=== PATIENT | male | born 1930 | race Caucasian/White ===

== ENCOUNTER 2019-01-12 18:52 | Inpatient (IN) ==
--- NOTE | 2019-01-12 19:51 | DR.GENAD ---
HPI - PCP Primary Care Physician: DALE - Complaint/Symptoms Chief Complaint Doctors Comments: Patient states he has had a cough with thick mucous production that is brown at times and white at times. He denies chest pain, SOB, cold, cough, wheezing or chills. States he is a patient of Dr. Daniels that was on Hospice since being in the hospital in [place] two weeks ago after having g-tube replaced. States he is under Hospice care because he was down initially but is feeling better and they want to have him checked for dehydration, pneumonia and to see why his stomach is swollen. Patient states he has home oxygen since coming home for the hospital in [place]. 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 States he was taking about 5-6 cans Ensure daily but Hospice had cut him down to 1 1/2 can. Family state he had a bowel movement recently and has not had any vomiting. Chief Complaint:: PT'S DAUGHTER STATES" HE WANTED TO COME OFF HOSPICE AND DO EVERYTHING TO GET BETTER. HE HAS A FEEDING TUBE THAT WAS REPLACED IN [facility] 2 WEEKS AGO AFTER THAT HIS LUNGS GOT REAL BAD AND HE WENT ON HOSPICE. HE JUST GETS SOB AND HIS SECREATIONS BUILD UP AND HE HAS TO SUCTIONED" - Nurses notes reviewed Nurses Notes Review: Yes - Source History Provided: Family Member, EMS - Mode of Arrival Mode of Arrival: EMS - Timing Onset of Chief Complaint: 01/12/19 Came on: Gradually - Duration Duration: Constant Duration: Weeks - Location Location: stomach distented; - Severity Severity: Mild - Modifying Factors Worsens:: nothing Improves:: nothing PMH - PMH Past Medical History: Yes Past Medical History: Anxiety Past Medical History Comment: THROAT CANCER Past Surgical History: Yes Past Surgical History Comment: PEG TUBE THROAT CANCER SURGERY ON NECK - Family History History of Family Medical Conditions: No - Social History Does any household member use tobacco: No Alcohol Use: None Do you use any recreational Drugs:: No Lives With: Family Lives Where: Home - infectious screening In the last 2 months have you had wt loss of >10#?: NO Have you had fever, night sweats or hemotysis?: No Have you traveled outside the country in the last 6 months?: No Isolation: Standard ROS - Review of Systems Constitutional: No Symptoms Reported, Weakness, Loss of Appetite (g-tube feedin gs) Eyes: No Symptoms Reported, Discharge ENTM: No Symptoms Reported Respiratoy: No Symptoms Reported, Productive Cough. negative: See HPI, Non- Productive Cough, Moist Cough, Dry Cough, Hacking Cough, Barking Cough, Brassy C ough, Orthopnea, Short of Breath, Stridor, Wheezing, Hemoptysis, Other Cardiovascular: No Symptoms Reported. negative: See HPI, Chest Pain, Edema, Palpitations, Syncope, Cyanosis, Skin Mottling, Other Gastrointestinal/Abdominal: No Symptoms Reported. negative: See HPI, Abdominal Pain, Constipation, Diarrhea, Nausea, Vomiting, Food Intolerance, Other Genitourinary: No Symptoms Reported Neurological: No Symptoms Reported, Weakness, Problems Walking Musculoskeletal: No Symptoms Reported Integumentary: No Symptoms Reported, Dryness. negative: See HPI, Change in Color, Change in Hair/Nails, Lesions, Lumps, Rash, Itching, Wound, Bruises, Juandice, Other Hematologic/Lymphatic: No Symptoms Reported Endocrine: No Symptoms Reported Psychiatric: No Symptoms Reported PE - General Limitations: No Limitations General Appearance: Alert, In No Apparent Distress - Head Head Exam: Normal Inspection, Atraumatic, Normocephalic - Eyes Eye exam: Normal Appearance, PERRL, EOMI. negative: Scleral Icterus, Conju nctival Injection, Nystagmus, Miosis, Mydrasis, Periorbital Swelling, Periorbital Tenderness, Other - ENT ENT Exam: Normal Exam, Normal Oropharynx, Mucous Membranes Dry, Other (healed left sided surgical scar). negative: Normal External Ear Exam, Mucous Membr anes Moist External Ear Exam: Auricular Trauma (left ear thin). negative: Auricular Hematoma, Pain with Movement, External Tenderness, Periauricular Adenopathy TM/Canal Exam: Bilateral Normal Nose Exam: Normal Nose Exam Mouth Exam: Normal Inspection. negative: Drooling (tongue with thick white coa ting), Trismus, Lip Swelling, Tongue Elevation, Tongue Swelling, Laceration, Other Throat Exam: Normal Inspection - Neck Neck Exam: Normal Inspection, Full ROM, Trachea Midline. negative: Lymphadenopathy (healed surgical scar left lateral neck) - Chest Chest Inspection: Normal Inspection, Symmetric Chest Wall Rise - Respiratory Respiratory Exam: Normal Lung Sounds Bilat Respiratory Exam: Bilateral Clear to Auscultation, Bilateral Decreased Breath Sounds - Cardiovascular Cardiovascular Exam: Regular Rate, Normal Rhythm, Normal Heart Sounds - Abdominal Exam Abdominal Exam: Normal Inspection, Normal Bowel Sounds, Soft, Distention, Other (gastric tube in place; small surgical laceration lowe abdomen; jomar intact) Abdominal Tenderness: negative: RUQ, RLQ, LUQ, LLQ, Epigastrium, Suprapubic, Diffuse, Mild, Moderate, Severe, Other - Extremities Extremities Exam: Normal Inspection, Full ROM, Normal Capillary Refill. negative: Tenderness, Edema, Joint Swelling, Calf Tenderness, Other - Back Back Exam: Normal Inspection, Full ROM - Neurologic Neurological Exam: Alert, Oriented X3, CN II-XII Intact, Reflexes Normal. negative: Normal Gait (gait not tested) - Psychiatric Psychiatric Exam: Normal Affect, Normal Mood - Skin Skin Exam: Warm, Dry, Intact, Normal Color - Vital Signs Vitals: Temperature 98.2 F Pulse Rate 69 Respiratory Rate 24 Blood Pressure 132/63 O2 Sat by Pulse Oximetry 98 Course - Consultation Called: 21:13 Call Returned: 21:13 (Dr. Rachel to admit) - Education/Counseling Education/Counseling: Patient, Family, Counseling Educated On: Diagnosis ROR - Labs Reviewed Laboratory Results Reviewed?: Yes (All labs and x-ray results reviewed and discussed with patient and family) Result Diagrams: 01/12/19 20:23 01/12/19 20:23 - XRAY XRAY Interpreted by: Radiologist (CT abdomen and pelvis: Distended urinary bladder; Nonobstructing bilateral nephrolithiasis.) XRAY Findings: CXR: No acute cardiopulmonary disease - EKG Rate: 76 Rhythm: NSR Block: RBBB Hypertrophy: None ST: Nonsp - Labs Reviewed Laboratory: WBC 9.1 X10^3/uL (3.6-10.0) 01/12/19 20:23 RBC 4.22 X10^6/uL (4.7-6.0) L 01/12/19 20:23 Hgb 13.6 g/dL (13.5-18.0) 01/12/19 20:23 Hct 40.4 % (42.0-54.0) L 01/12/19 20:23 MCV 95.6 fL (80.0-100.0) 01/12/19 20: MCH 32.2 pg (27.0-34.0) 01/12/19 20: MCHC 33.7 g/dL (33.0-35.0) 01/12/19 20: RDW 14.0 % (11.6-16.5) 01/12/19 20: Plt Count 290 X10^3/uL (150.0-450.0) 01/12/19 20:23 MPV 8.6 fL (7.4-11.0) 01/12/19 20:23 Neut % (Auto) 83.7 % (42.0-75.0) H 01/12/19 20:23 Lymph % (Auto) 7.9 % (21.0-51.0) L 01/12/19 20:23 [place] % (Auto) 6.7 % (0.0-13.0) 01/12/19 20: Eos % (Auto) 1.1 % (0.9-2.9) 01/12/19 20: Baso % (Auto) 0.6 % (0.2-1.0) 01/12/19 20: Neut # (Auto) 7.7 x10^3/uL (2.2-4.8) H 01/12/19 20:23 Lymph # (Auto) 0.7 X10^3/uL (1.3-2.9) L 01/12/19 20:23 [place] # (Auto) 0.6 x10^3/uL (0.3-0.8) 01/12/19 20:23 Eos # (Auto) 0.1 x10^3/uL (0.0-0.2) 01/12/19 20: Baso # (Auto) 0.1 X10^3/uL (0.0-0.1) 01/12/19 20: Absolute Nucleated RBC 0.0 /100WBC 01/12/19 20: INR Target Range - 01/12/19 20: INR 1.11 (0.8-1.3) 01/12/19 20:23 APTT 32.5 SECONDS (22.9-36.5) 01/12/19 20:23 PTT Comment - 01/12/19 20:23 Sodium 152 mmol/L (136-145) H* 01/12/19 20:23 Corrected Sodium 152 mmol/L (136-145) H 01/12/19 20:23 Potassium 3.5 mmol/L (3.5-5.1) 01/12/19 20:23 Chloride 109 mmol/L (98-107) H 01/12/19 20:23 Carbon Dioxide 37.9 mmol/L (21-32) H 01/12/19 20:23 BUN 15 mg/dL (7-18) 01/12/19 20:23 Creatinine 0.94 mg/dL (0.70-1.30) 01/12/19 20:23 Est GFR (MDRD) Af Amer > 60 (>60) 01/12/19 20:23 Est GFR (MDRD) Non-Af > 60 (>60) 01/12/19 20:23 Glucose 119 mg/dL (65-99) H 01/12/19 20:23 Calcium 10.1 mg/dL (8.5-10.1) 01/12/19 20:23 Corrected Calcium 11.5 mg/dL (8.5-10.1) H 01/12/19 20:23 Magnesium 2.4 mg/dL (1.7-2.9) 01/12/19 20:23 Total Bilirubin 0.80 mg/dL (0.2-1.0) 01/12/19 20:23 AST 43 Units/L (15-37) H 01/12/19 20:23 ALT 43 Units/L (12-78) 01/12/19 20:23 Alkaline Phosphatase 108 Units/L (46-116) 01/12/19 20:23 Creatine Kinase 19 Units/L (39-308) L 01/12/19 20:23 CK-MB (CK-2) < 1.0 ng/mL (0-4.0) 01/12/19 20:23 CK/CKMB % Calc 5.3 % (<4) 01/12/19 20:23 Troponin I 0.02 ng/mL (0-1.5) 01/12/19 20:23 Total Protein 6.7 g/dL (6.4-8.2) 01/12/19 20:23 Albumin 2.3 g/dL (3.4-5.0) L 01/12/19 20:23 Globulin 4.4 g/dL (2.5-4.5) 01/12/19 20:23 Albumin/Globulin Ratio 0.5 Ratio (1.1-2.1) L 01/12/19 20:23 Opioid - Opioid Risk Tool Total: 0 Total Score Risk Category: Low Risk - Diagnosis Discharge Problem: Dehydration with hypernatremia, Hypernatremia, Hypercalcemia, Hypoalbuminemia due to protein-calorie malnutrition, Nephrolithiasis - Discharge Plan Disposition: ADMITTED INPATIENT Condition: Stable
--- NOTE | 2019-01-12 20:17 | CT ---
CT abdomen and pelvis without contrast Indication: Abdominal distention Comparison: None Technique: CT images of the abdomen and pelvis were obtained without contrast. Automatic exposure control was utilized. Findings: There is moderate lumbar spine degenerative change with associated dextroscoliosis. No acute osseous abnormality. There is trace layering right pleural effusion with bilateral lower lobe subsegmental atelectasis. Evaluation of the abdominal pelvic viscera is limited without contrast. Accounting for this, the liver, gallbladder, spleen, stomach, duodenum, pancreas, and adrenals demonstrate no significant abnormality. Percutaneous gastrostomy projects in satisfactory position. There are small nonobstructing bilateral renal stones. No ureteral stone or hydroureter observed. No significant thickening or dilatation of the lower GI tract observed. Normal appendix is noted. Urinary bladder is distended, but otherwise grossly normal. The prostate and rectum are unremarkable. There is aortoiliac atherosclerosis, without aneurysm. No free fluid or adenopathy. Impression: The urinary bladder is distended, but otherwise grossly unremarkable. Otherwise no acute process elsewhere to explain patient's symptoms. Nonobstructing bilateral nephrolithiasis, trace layering right pleural effusion, spine degenerative change with scoliosis, and other findings as above. Reported By:
--- NOTE | 2019-01-12 20:18 | RAD ---
HISTORY: Chest pain Study: Single-view chest Comparison: None Findings: The trachea is midline. The cardiac silhouette is enlarged with a tortuous thoracic aorta. Chronic interstitial lung changes are observed without acute infiltrate or effusion. The bony thorax is unremarkable. IMPRESSION: 1. No acute cardiopulmonary disease. Reported By:
[2019-01-12 20:35] LABS: BASOPHILS # (AUTO) 0.1 X10^3/uL (0.0-0.1); BASOPHILS % (AUTO) 0.6 % (0.2-1.0); EOSINOPHILS # (AUTO) 0.1 x10^3/uL (0.0-0.2); EOSINOPHILS % (AUTO) 1.1 % (0.9-2.9); HEMATOCRIT 40.4 % (42.0-54.0); HEMOGLOBIN 13.6 g/dL (13.5-18.0); LYMPHOCYTES # (AUTO) 0.7 X10^3/uL (1.3-2.9); LYMPHOCYTES % (AUTO) 7.9 % (21.0-51.0); MEAN CORPUSCULAR HEMOGLOBIN 32.2 pg (27.0-34.0); MEAN CORPUSCULAR HGB CONC 33.7 g/dL (33.0-35.0); MEAN CORPUSCULAR VOLUME 95.6 fL (80.0-100.0); MEAN PLATELET VOLUME 8.6 fL (7.4-11.0); MONOCYTES # (AUTO) 0.6 x10^3/uL (0.3-0.8); MONOCYTES % (AUTO) 6.7 % (0.0-13.0); NEUTROPHILS # (AUTO) 7.7 x10^3/uL (2.2-4.8); NEUTROPHILS % (AUTO) 83.7 % (42.0-75.0); PLATELET COUNT 290 X10^3/uL (150.0-450.0); RED BLOOD COUNT 4.22 X10^6/uL (4.7-6.0); WHITE BLOOD COUNT 9.1 X10^3/uL (3.6-10.0)
[2019-01-12 20:51] LABS: ALANINE AMINOTRANSFERASE 43 Units/L (12-78); ALBUMIN 2.3 g/dL (3.4-5.0); ALKALINE PHOSPHATASE 108 Units/L (46-116); ASPARTATE AMINO TRANSFERASE 43 Units/L (15-37); BLOOD UREA NITROGEN 15 mg/dL (7-18); CALCIUM 10.1 mg/dL (8.5-10.1); CARBON DIOXIDE 37.9 mmol/L (21-32); CHLORIDE 109 mmol/L (98-107); CKMB % 5.3 % (<4); COR CA(FOR HYPOALB) 11.5 mg/dL (8.5-10.1); COR NA(FOR HYPERGLY) 152 mmol/L (136-145); CREATINE KINASE 19 Units/L (39-308); CREATINE KINASE MB < 1.0 ng/mL (0-4.0); CREATININE 0.94 mg/dL (0.70-1.30); MAGNESIUM 2.4 mg/dL (1.7-2.9); TOTAL PROTEIN 6.7 g/dL (6.4-8.2); TROPONIN I 0.02 ng/mL (0-1.5); eGFR NON BLACK RACES > 60 (>60)
[2019-01-12 20:55] LABS: SODIUM 152 mmol/L (136-145)
[2019-01-12] MEDS ORDERED: NS 1000 ML 1,000 ML IV SCH ×2 (22:00)
[2019-01-12] MEDS ORDERED: TORADOL 30 MG VIAL IVP ONE (22:12)
[2019-01-12] MEDS ORDERED: TORADOL 30 MG VIAL ONE (22:15)
[2019-01-12] MEDS ORDERED: NS 1000 ML 1,000 ML ONE (22:15)
[2019-01-13] MEDS ORDERED: ATIVAN INJ 2 MG VIAL IVP PRN (00:04)
[2019-01-13] MEDS ORDERED: ATIVAN INJ 2 MG VIAL ONE (00:11)
[2019-01-13 05:38] LABS: BASOPHILS % (AUTO) 0.4 % (0.2-1.0); EOSINOPHILS # (AUTO) 0.1 x10^3/uL (0.0-0.2); EOSINOPHILS % (AUTO) 1.2 % (0.9-2.9); HEMATOCRIT 39.1 % (42.0-54.0); HEMOGLOBIN 12.9 g/dL (13.5-18.0); LYMPHOCYTES # (AUTO) 0.8 X10^3/uL (1.3-2.9); LYMPHOCYTES % (AUTO) 9.4 % (21.0-51.0); MEAN CORPUSCULAR HEMOGLOBIN 31.7 pg (27.0-34.0); MEAN CORPUSCULAR HGB CONC 33.1 g/dL (33.0-35.0); MEAN CORPUSCULAR VOLUME 95.9 fL (80.0-100.0); MEAN PLATELET VOLUME 9.5 fL (7.4-11.0); MONOCYTES # (AUTO) 0.6 x10^3/uL (0.3-0.8); NEUTROPHILS # (AUTO) 7.1 x10^3/uL (2.2-4.8); PLATELET COUNT 269 X10^3/uL (150.0-450.0); RED BLOOD COUNT 4.07 X10^6/uL (4.7-6.0); RED CELL DISTRIBUTION WIDTH 13.9 % (11.6-16.5); WHITE BLOOD COUNT 8.7 X10^3/uL (3.6-10.0)
[2019-01-13 05:49] LABS: ALANINE AMINOTRANSFERASE 34 Units/L (12-78); ALBUMIN 2.2 g/dL (3.4-5.0); ALKALINE PHOSPHATASE 99 Units/L (46-116); ASPARTATE AMINO TRANSFERASE 36 Units/L (15-37); BLOOD UREA NITROGEN 17 mg/dL (7-18); CALCIUM 9.7 mg/dL (8.5-10.1); CARBON DIOXIDE 35.2 mmol/L (21-32); CHLORIDE 110 mmol/L (98-107); COR CA(FOR HYPOALB) 11.1 mg/dL (8.5-10.1); COR NA(FOR HYPERGLY) 153 mmol/L (136-145); CREATININE 0.97 mg/dL (0.70-1.30); TOTAL PROTEIN 6.6 g/dL (6.4-8.2); eGFR NON BLACK RACES > 60 (>60)
[2019-01-13 06:07] LABS: SODIUM 153 mmol/L (136-145)
[2019-01-13] MEDS ORDERED: ULTRAM ONE (06:11)
[2019-01-13] MEDS ORDERED: KLOR-CON PO PRN (06:12)
[2019-01-13] MEDS ORDERED: POTASSIUM CHL 60 MEQ/NS 0.45% 500 ML IV PRN (06:12)
[2019-01-13] MEDS ORDERED: MICRO K EXTEN CAP 10 MEQ PO PRN (06:12)
[2019-01-13] MEDS ORDERED: K-DUR TAB 20 MEQ PO PRN (06:12)
[2019-01-13] MEDS ORDERED: POTASSIUM CHL 40 MEQ/NS 0.45% 500 ML IV PRN (06:12)
[2019-01-13] MEDS ORDERED: MAGNESIUM SULFATE 1 GRAM/100 mL PREMIX 1 GM/100 ML BAG IV PRN (06:12)
[2019-01-13] MEDS ORDERED: K-RIDER 10 MEQ/NS 100 ML 10 MEQ/100 ML BAG IV PRN (06:12)
[2019-01-13] MEDS ORDERED: NS 1/2 1000 ML IV 1,000 ML ONE (06:31)
[2019-01-13] MEDS: NS 1/2 1000 ML IV 1,000 ML IV SCH ×2 (06:36→14:19)
[2019-01-13] MEDS: ULTRAM PO PRN ×3 (06:38→19:30)
[2019-01-13] MEDS: POTASSIUM CHLORIDE LIQ 20 MEQ UDC PO PRN (06:51)
[2019-01-13 08:15] VITALS: BMI 22.7
--- NOTE | 2019-01-13 15:42 | DR.H&P ---
H&P - History & Physical for Day of: H&P Date: 01/12/19 - Chief Complaint Chief Complaint: COUGH, SHORT OF BREATH, ABDOMINAL PAIN, WEAKNESS - History of Present Illness History of Present Illness: IS A 88 YEAR OLD PATIENT OF WHO PRESENTED TO THE ER WITH REPORTS OF A PRODUCTIVE COUGH, SHORTNESS OF BREATH, ABDOMINAL PAIN, ANDWEAKNESS. PATIENT RECENTLY HAD A G-TUBE REPLACED IN [place]. HE WAS SENT HOME FROM THE HOSPITAL WITH HOSPICE. SINCE RETURNING HOME, PATIENT WISHES TO BE DISCHARGED FROM HOSPICE AND TO BE FURTHER EVALUATED. HE HAS A HISTORY OF [facility] AND TREATMENT APPROXIMATELY SIX YEARS AGO. HE HAS HAD THE G-TUBE SINCE AND HAS BEEN RECEIVING ENSURE FOUR TO FIVE TIMES A DAY. ON ARRIVAL TO THE HOSPITAL, VITALS WERE 98.2-69-24-98%-132/63. LABS WERE OBTAINED. ABNROMAL LAB VALUES INCLUDE THE FOLLOWING: RBC 4.22, HCT 40.4, SODIUM 152, CHLORIDE 109, CARBON DIOXIDE 37.9, GLUOSE 119, AST 43, CREATINE KINASE 19, ALBUMIN 2.3. ABDOMEN/PELVIS CT WITHOUT CONTRAST WAS OBTAINED AND REVEALED: The urinary bladder is distended, but otherwise grossly unremarkable. Otherwise no acute process elsewhere to explain patient's symptoms. Nonobstructing bilateral nephrolithiasis, trace layering right pleural effusion, spine degenerative change with scoliosis. A CHEST XRAY WAS OBTAINED AND REVEALED: NO ACUTE CARDIOPULMONARY DISEASE. EKG REVEALED: ATRIAL FIBRILLATION WITH HR 76. HE WAS ADMITTED TO THE HOSPITAL FOR FURTHER EVALUATION AND TREATMENT OF DEHYDRATION, HYPERNATREMIA, AND HYPERCALCEMIA, MALNUTRITION, AND NEPHROLITHIASIS. HE WAS STARTED ON NORMAL SALINE AND REPSIRATORY TREATMENTS. WE PLAN TO FOLLOW UP WITH AM LABS AND CONTINUE TO MONITOR. - Past Medical History Past Medical History: Anxiety, GERD, Kidney Stones Additional Medical History: [facility], CARDIAC ARRHYTHMIA, GERD, HX KIDNEY STONES - Past Surgical History Additional Surgical History: HERNIA REPAIR, RIGHT KNEE REPLACEMENT, RADICAL NECK SURGERY D/T THROAT CANCER - Family History Family Medical History: Cancer, Hypertension - Social History Does patient currently use any type of tobacco product: No Have you used tobacco products in the last 12 months: No Type of Tobacco Use: Cigarettes Does any household member use tobacco: No Alcohol Use: None Drug Use: None Prescription drug monitoring program results: PDMP reviewed and no concerns identified - Medications Home Medications: diphenhydramine [From Benadryl] Allergy (Verified 01/12/19 18:55) ketorolac [From Toradol] Allergy (Verified 01/13/19 13:58) lorazepam [From Ativan] Allergy (Verified 01/13/19 13:58) morphine Allergy (Verified 01/12/19 18:55) Penicillins Allergy (Verified 01/12/19 18:55) CONTINUE taking the following medications tramadol [Ultram] 50 mg PO Q6H 01/12/19 [History] - Review of Systems Constitutional: Weakness Eyes: No Symptoms Reported ENT: No Symptoms Reported Respiratory: Cough, Shortness of Breath, Sputum Cardiovascular: No Symptoms Reported Gastrointestinal: Abdominal Pain Genitourinary: No Symptoms Reported Musculoskeletal: No Symptoms Reported Skin: No Symptoms Reported Neurological: Weakness - Physical Exam Vital Signs: Temperature 97.1 F Pulse Rate [Left] 90 Pulse Rate 69 Respiratory Rate 18 Blood Pressure [Left Arm] 150/71 Blood Pressure 132/63 O2 Sat by Pulse Oximetry 94 Oriented: Normal Eyes: Normal Ear: Normal Nose: Normal Throat: Normal Respiratory: Diminished Throughout Cardiovascular: Normal. negative: S3, S4, Murmur : Normal Auscultation: Bowel Sounds: Normal Palpation: Normal Tenderness: Diffuse, Moderate. negative: Rebound, Guarding, Rigidity Skin: Decreased Turgur Musculoskeletal: Normal Psychiatric: Normal Mood Description: Calm Affect: Normal Speech Pattern: Clear - Assessment/Plan (1) Dehydration with hypernatremia Status: Acute Plan: ADMIT, IV FLUIDS, CONTINUE TO MONITOR (2) Hypercalcemia Status: Acute (3) Hypoalbuminemia due to protein-calorie malnutrition Status: Acute - Allergies Allergies/Adverse Reactions: Allergies Allergy/AdvReac Type Severity Reaction Status Date / Time diphenhydramine Allergy Verified 01/12/19 18:55 [From Benadryl] ketorolac [From Toradol] Allergy Verified 01/13/19 13:58 lorazepam [From Ativan] Allergy Verified 01/13/19 13:58 morphine Allergy Verified 01/12/19 18:55 Penicillins Allergy Verified 01/12/19 18:55
[2019-01-13] MEDS: D5W 1000 ML IV 1,000 ML IV SCH (16:00)
[2019-01-13] MEDS: PROCALAMINE 3 % 1,000 ML IV SCH (16:30)
[2019-01-14] MEDS: ULTRAM PO PRN ×2 (01:16→20:58)
[2019-01-14 01:48] LABS: BILIRUBIN,URINE NEGATIVE (NEGATIVE); BLOOD/HEMOGLOBIN,URINE 1+ (NEGATIVE); GLUCOSE, URINE NEGATIVE (NEGATIVE); KETONES,URINE NEGATIVE (NEGATIVE); LEUKOCYTE ESTERASE ,URINE 1+ (NEGATIVE); NITRITES,URINE NEGATIVE (NEGATIVE); PROTEIN,URINE 1+ (NEGATIVE); UROBILINOGEN,URINE NORMAL (NORMAL)
[2019-01-14 01:55] LABS: AMORPHOUS SEDIMENT,UR 4+ /HPF (NEGATIVE); APPEARANCE,URINE CLOUDY (CLEAR); BACTERIA,URINE NEGATIVE /HPF (NEGATIVE); COLOR,URINE YELLOW (YELLOW); RBC,URINE NONE SEEN /HPF (NONE SEEN); SQUAMOUS EPITHELIAL CELL,UR FEW /HPF (NEGATIVE)
[2019-01-14] MEDS: D5W 1000 ML IV 1,000 ML IV SCH ×2 (03:23→17:31)
[2019-01-14 05:13] LABS: BASOPHILS # (AUTO) 0.1 X10^3/uL (0.0-0.1); BASOPHILS % (AUTO) 0.9 % (0.2-1.0); EOSINOPHILS # (AUTO) 0.3 x10^3/uL (0.0-0.2); EOSINOPHILS % (AUTO) 4.6 % (0.9-2.9); HEMATOCRIT 34.6 % (42.0-54.0); HEMOGLOBIN 11.7 g/dL (13.5-18.0); MEAN CORPUSCULAR HEMOGLOBIN 32.1 pg (27.0-34.0); MEAN CORPUSCULAR HGB CONC 33.8 g/dL (33.0-35.0); MEAN PLATELET VOLUME 9.7 fL (7.4-11.0); MONOCYTES # (AUTO) 0.5 x10^3/uL (0.3-0.8); MONOCYTES % (AUTO) 8.4 % (0.0-13.0); NEUTROPHILS # (AUTO) 4.3 x10^3/uL (2.2-4.8); NEUTROPHILS % (AUTO) 70.1 % (42.0-75.0); PLATELET COUNT 275 X10^3/uL (150.0-450.0); RED BLOOD COUNT 3.64 X10^6/uL (4.7-6.0); RED CELL DISTRIBUTION WIDTH 14.2 % (11.6-16.5); WHITE BLOOD COUNT 6.1 X10^3/uL (3.6-10.0)
[2019-01-14 05:20] LABS: ALANINE AMINOTRANSFERASE 29 Units/L (12-78); ALBUMIN 1.9 g/dL (3.4-5.0); ALKALINE PHOSPHATASE 86 Units/L (46-116); ASPARTATE AMINO TRANSFERASE 31 Units/L (15-37); BLOOD UREA NITROGEN 22 mg/dL (7-18); CALCIUM 8.8 mg/dL (8.5-10.1); CARBON DIOXIDE 31.5 mmol/L (21-32); CHLORIDE 104 mmol/L (98-107); COR CA(FOR HYPOALB) 10.5 mg/dL (8.5-10.1); COR NA(FOR HYPERGLY) 142 mmol/L (136-145); CREATININE 0.85 mg/dL (0.70-1.30); SODIUM 141 mmol/L (136-145); TOTAL PROTEIN 5.7 g/dL (6.4-8.2); eGFR NON BLACK RACES > 60 (>60)
[2019-01-14] MEDS ORDERED: PHARMACY CONSULT - DOSE _____ XX SCH (09:00)
[2019-01-14] MEDS: ALBUMIN HUMAN 25%- 100 ML 100 ML IV SCH (11:06)
[2019-01-14] MEDS: CHRONULAC PEG SCH (17:31)
[2019-01-14] MEDS: LOVENOX INJ 30 MG SYR SC SCH (20:58)
--- NOTE | 2019-01-14 21:39 | PCM.PROG ---
Progress Note - Progress Note for Day of Date of Exam: 01/13/19 - Subjective Subjective: WAS ADMITTED FOR DEHYDRATION, HYPERNATREMIA, HYPERCALCEMIA, AND PROTEIN DEFICIENCY. TODAY, HE RECENTLY HAD A G-TUBE REPLACEMENT AND WAS TREATED FOR PNEUMONIA WITHIN THE LAST TWO WEEKS. TODAY, HE IS ALERT AND ORIENTED, LYING IN BED ON MORNING ROUNDS. HE CONTINUES WITH COMPLAINTS OF WEAKNESS AND SHORTNESS OF BREATH TODAY. ON EXAMINATION, HEART IS REGULAR IN RATE AND RHYTHM. BILATERAL LUNGS ARE NOTED WITH DIMINISHED LUNG SOUNDS THROUGHOUT. ABDOMEN IS FLAT, SOFT, AND NOTED WITH MILD, DIFFUSE PAIN. HYPOACTIVE BOWEL SOUNDS NOTED IN ALL QUADRANTS. HIS VITALS THIS MORNING ARE: 97.3-53-18-98%-139/72. LABS WERE OBTAINED. ABNORMAL LAB VALUES INCLUDE THE FOLLOWING: RBC 4.07, HGB 12.9, HCT 39.1, SODIUM 153, POTASSIUM 3.1, CHLORIDE 110, CARBON DIOXIDE 35.2, GLUCOSE 113, TOTAL BILI 1.10, ALBUMIN 2.2. HE IS CURRENTLY RECEIVING 1/2NORMAL SALINE. TODAY, WE WILL CHANGE IV FLUIDS TO D5W AND START PROCALAMINE. WE WILL RESUME HIS ENSURE 4-5 TIMES/DAY. OTHERWISE, WE PLAN TO FOLLOW UP WITH AM LABS AND CONTINUE TO MONITOR. - Past Medical Family Social History Past Med/Fam/Surg Hx: No changes since H&P Allergies: Allergies diphenhydramine [From Benadryl] Allergy (Verified 01/12/19 18:55) ketorolac [From Toradol] Allergy (Verified 01/13/19 13:58) lorazepam [From Ativan] Allergy (Verified 01/13/19 13:58) morphine Allergy (Verified 01/12/19 18:55) Penicillins Allergy (Verified 01/12/19 18:55) - Review of Systems ROS: No change since H&P - Vital Signs and I&O's Vital Signs: Temperature 98.2 F Pulse Rate [Left] 61 Pulse Rate 69 Respiratory Rate 20 Blood Pressure [Left Arm] 148/67 Blood Pressure 132/63 O2 Sat by Pulse Oximetry 96 Intake and Output: Intake & Output 01/12/19 01/13/19 01/14/19 01/15/19 11:59 11:59 11:59 11:59 Intake Total 125 / 125 1520 / 1520 175 / 175 Output Total 150 / 150 200 / 200 Balance 125 / 125 1370 / 1370 -25 / -25 - Physical Exam Oriented: Normal Eyes: Normal Ear: Normal Nose: Normal Throat: Normal Cardiovascular: Normal. negative: S3, S4, Murmur : Normal Auscultation: Bowel Sounds: Normal Tenderness: Diffuse, Moderate. negative: Rebound, Guarding, Rigidity Skin: Decreased Turgur Musculoskeletal: Normal Psychiatric: Normal Mood Description: Calm Affect: Normal Speech Pattern: Clear - Laboratory and Diagnostics Result Diagrams: 01/14/19 04:17 01/14/19 04:17 Labs: Laboratory WBC 6.1 X10^3/uL (3.6-10.0) 01/14/19 04:17 RBC 3.64 X10^6/uL (4.7-6.0) L 01/14/19 04:17 Hgb 11.7 g/dL (13.5-18.0) L 01/14/19 04:17 Hct 34.6 % (42.0-54.0) L 01/14/19 04:17 MCV 95.0 fL (80.0-100.0) 01/14/19 04:17 MCH 32.1 pg (27.0-34.0) 01/14/19 04:17 MCHC 33.8 g/dL (33.0-35.0) 01/14/19 04:17 RDW 14.2 % (11.6-16.5) 01/14/19 04:17 Plt Count 275 X10^3/uL (150.0-450.0) 01/14/19 04:17 MPV 9.7 fL (7.4-11.0) 01/14/19 04:17 Neut % (Auto) 70.1 % (42.0-75.0) 01/14/19 04:17 Lymph % (Auto) 16.0 % (21.0-51.0) L 01/14/19 04:17 [place] % (Auto) 8.4 % (0.0-13.0) 01/14/19 04:17 Eos % (Auto) 4.6 % (0.9-2.9) H 01/14/19 04:17 Baso % (Auto) 0.9 % (0.2-1.0) 01/14/19 04:17 Neut # (Auto) 4.3 x10^3/uL (2.2-4.8) 01/14/19 04:17 Lymph # (Auto) 1.0 X10^3/uL (1.3-2.9) L 01/14/19 04:17 [place] # (Auto) 0.5 x10^3/uL (0.3-0.8) 01/14/19 04:17 Eos # (Auto) 0.3 x10^3/uL (0.0-0.2) H 01/14/19 04:17 Baso # (Auto) 0.1 X10^3/uL (0.0-0.1) 01/14/19 04:17 Absolute Nucleated RBC 0.1 /100WBC 01/14/19 04:17 INR Target Range - 01/12/19 20:23 INR 1.11 (0.8-1.3) 01/12/19 20:23 APTT 32.5 SECONDS (22.9-36.5) 01/12/19 20:23 PTT Comment - 01/12/19 20:23 Sodium 141 mmol/L (136-145) 01/14/19 04:17 Corrected Sodium 142 mmol/L (136-145) 01/14/19 04:17 Potassium 3.8 mmol/L (3.5-5.1) 01/14/19 04:17 Chloride 104 mmol/L (98-107) 01/14/19 04:17 Carbon Dioxide 31.5 mmol/L (21-32) 01/14/19 04:17 BUN 22 mg/dL (7-18) H 01/14/19 04:17 Creatinine 0.85 mg/dL (0.70-1.30) 01/14/19 04:17 Est GFR (MDRD) Af Amer > 60 (>60) 01/14/19 04:17 Est GFR (MDRD) Non-Af > 60 (>60) 01/14/19 04:17 Glucose 121 mg/dL (65-99) H 01/14/19 04:17 POC Glucose (mg/dL) 148 mg/dL (65-99) H 01/14/19 20:00 Calcium 8.8 mg/dL (8.5-10.1) 01/14/19 04:17 Corrected Calcium 10.5 mg/dL (8.5-10.1) H 01/14/19 04:17 Magnesium 2.4 mg/dL (1.7-2.9) 01/12/19 20:23 Total Bilirubin 0.70 mg/dL (0.2-1.0) 01/14/19 04:17 AST 31 Units/L (15-37) 01/14/19 04:17 ALT 29 Units/L (12-78) 01/14/19 04:17 Alkaline Phosphatase 86 Units/L (46-116) 01/14/19 04:17 Creatine Kinase 19 Units/L (39-308) L 01/12/19 20:23 CK-MB (CK-2) < 1.0 ng/mL (0-4.0) 01/12/19 20:23 CK/CKMB % Calc 5.3 % (<4) 01/12/19 20:23 Troponin I 0.02 ng/mL (0-1.5) 01/12/19 20:23 Total Protein 5.7 g/dL (6.4-8.2) L 01/14/19 04:17 Albumin 1.9 g/dL (3.4-5.0) L 01/14/19 04:17 Globulin 3.8 g/dL (2.5-4.5) 01/14/19 04:17 Albumin/Globulin Ratio 0.5 Ratio (1.1-2.1) L 01/14/19 04:17 Specimen Type Clean catch urine 01/14/19 01:25 Urine Color Yellow (YELLOW) 01/14/19 01:25 Urine Appearance Cloudy (CLEAR) 01/14/19 01:25 Urine pH 8.0 (5.0 - 8.0) 01/14/19 01:25 Ur Specific [place] 1.015 (1.000-1.030) 01/14/19 01:25 Urine Protein 1+ (NEGATIVE) 01/14/19 01:25 Urine Glucose (UA) Negative (NEGATIVE) 01/14/19 01:25 Urine Ketones Negative (NEGATIVE) 01/14/19 01:25 Urine Occult Blood 1+ (NEGATIVE) 01/14/19 01:25 Urine Nitrite Negative (NEGATIVE) 01/14/19 01:25 Urine Bilirubin Negative (NEGATIVE) 01/14/19 01:25 Urine Urobilinogen Normal (NORMAL) 01/14/19 01:25 Ur Leukocyte Esterase 1+ (NEGATIVE) 01/14/19 01:25 Urine RBC None seen /HPF (NONE SEEN) 01/14/19 01:25 Urine WBC 0-2 /HPF (NONE SEEN) 01/14/19 01:25 Ur Squamous Epith Cells Few /HPF (NEGATIVE) 01/14/19 01:25 Amorphous Sediment 4+ /HPF (NEGATIVE) 01/14/19 01:25 Urine Bacteria Negative /HPF (NEGATIVE) 01/14/19 01:25 Ur Culture Indicated? No/not indicated 01/14/19 01:25 - Plan (1) Dehydration with hypernatremia Status: Acute Plan: ADMIT, IV FLUIDS, CONTINUE TO MONITOR (2) Hypercalcemia Status: Acute (3) Hypoalbuminemia due to protein-calorie malnutrition Status: Acute Plan: PROCAL IV, ENSURE 1 CAN 4-5X/DAY
[2019-01-15] MEDS: ULTRAM PO PRN ×2 (04:17→20:38)
[2019-01-15] MEDS: D5W 1000 ML IV 1,000 ML IV SCH ×2 (05:11→19:01)
[2019-01-15 06:05] LABS: BASOPHILS % (AUTO) 0.8 % (0.2-1.0); EOSINOPHILS # (AUTO) 0.2 x10^3/uL (0.0-0.2); EOSINOPHILS % (AUTO) 3.9 % (0.9-2.9); HEMATOCRIT 33.5 % (42.0-54.0); HEMOGLOBIN 11.6 g/dL (13.5-18.0); LYMPHOCYTES # (AUTO) 0.9 X10^3/uL (1.3-2.9); LYMPHOCYTES % (AUTO) 16.8 % (21.0-51.0); MEAN CORPUSCULAR HEMOGLOBIN 31.9 pg (27.0-34.0); MEAN CORPUSCULAR HGB CONC 34.5 g/dL (33.0-35.0); MEAN CORPUSCULAR VOLUME 92.3 fL (80.0-100.0); MEAN PLATELET VOLUME 9.6 fL (7.4-11.0); MONOCYTES # (AUTO) 0.5 x10^3/uL (0.3-0.8); MONOCYTES % (AUTO) 9.5 % (0.0-13.0); NEUTROPHILS # (AUTO) 3.7 x10^3/uL (2.2-4.8); PLATELET COUNT 258 X10^3/uL (150.0-450.0); RED BLOOD COUNT 3.63 X10^6/uL (4.7-6.0); RED CELL DISTRIBUTION WIDTH 14.3 % (11.6-16.5); WHITE BLOOD COUNT 5.4 X10^3/uL (3.6-10.0)
[2019-01-15 06:28] LABS: ALANINE AMINOTRANSFERASE 30 Units/L (12-78); ALBUMIN 2.2 g/dL (3.4-5.0); ALKALINE PHOSPHATASE 78 Units/L (46-116); ASPARTATE AMINO TRANSFERASE 32 Units/L (15-37); BLOOD UREA NITROGEN 17 mg/dL (7-18); CARBON DIOXIDE 29.6 mmol/L (21-32); CHLORIDE 100 mmol/L (98-107); COR CA(FOR HYPOALB) 10.4 mg/dL (8.5-10.1); COR NA(FOR HYPERGLY) 136 mmol/L (136-145); CREATININE 0.79 mg/dL (0.70-1.30); SODIUM 136 mmol/L (136-145); TOTAL PROTEIN 5.8 g/dL (6.4-8.2); eGFR NON BLACK RACES > 60 (>60)
[2019-01-15] MEDS: LOVENOX INJ 30 MG SYR SC SCH ×2 (08:11→20:39)
[2019-01-15] MEDS: ALBUMIN HUMAN 25%- 100 ML 100 ML IV SCH (08:12)
[2019-01-15] MEDS: CHRONULAC PEG SCH (10:19)
[2019-01-15] MEDS: PROCALAMINE 3 % 1,000 ML IV SCH (16:57)
[2019-01-15] MEDS: POTASSIUM CHLORIDE LIQ 20 MEQ UDC PO PRN (20:39)
--- NOTE | 2019-01-15 21:36 | PCM.PROG ---
Progress Note - Progress Note for Day of Date of Exam: 01/14/19 - Subjective Subjective: WAS ADMITTED FOR DEHYDRATION, HYPERNATREMIA, HYPERCALCEMIA, AND PROTEIN DEFICIENCY. HE RECENTLY HAD A G-TUBE REPLACEMENT AND WAS TREATED FOR PNEUMONIA WITHIN THE LAST TWO WEEKS. TODAY, HE IS ALERT AND ORIENTED, LYING IN BED ON MORNING ROUNDS. HE CONTINUES WITH COMPLAINTS OF WEAKNE SS TODAY. ON EXAMINATION, HEART IS REGULAR IN RATE AND RHYTHM. BILATERAL LUNGS ARE NOTED WITH DIMINISHED LUNG SOUNDS THROUGHOUT. ABDOMEN IS FLAT, SOFT, AND NOTED WITH MILD, DIFFUSE PAIN. HYPOACTIVE BOWEL SOUNDS NOTED IN ALL QUADRANTS. HIS VITALS THIS MORNING ARE: 97.6-59-18-96%-106/53. LABS WERE OBTAINED. ABNORMAL LAB VALUES INCLUDE THE FOLLOWING: RBC 3.64, HGB 11.7, HCT 34.6, BUN 22, GLUCOSE 121, TOTAL PROTEIN 5.7, ALBUMIN 1.9. HE IS CURRENTLY RECEIVING D5W AT 80ML/HR AND PROCAL AT 40ML/HR. TODAY, WE WILL START ALBUMIN 25% IV DAILY AND RESUME HOME MEDS. WE WILL HAVE PHYSICAL THERAPY EVALUATE PATIENT. OTHERWISE, WE PLAN TO FOLLOW UP WITH AM LABS AND CONTINUE TO MONITOR. - Past Medical Family Social History Past Med/Fam/Surg Hx: No changes since H&P Allergies: Allergies diphenhydramine [From Benadryl] Allergy (Verified 01/12/19 18:55) ketorolac [From Toradol] Allergy (Verified 01/13/19 13:58) lorazepam [From Ativan] Allergy (Verified 01/13/19 13:58) morphine Allergy (Verified 01/12/19 18:55) Penicillins Allergy (Verified 01/12/19 18:55) - Review of Systems ROS: No change since H&P - Vital Signs and I&O's Vital Signs: Temperature 98.3 F Pulse Rate [Left] 62 Pulse Rate 69 Respiratory Rate 15 Blood Pressure [Right Arm] 135/65 Blood Pressure [Left Arm] 166/79 Blood Pressure 132/63 O2 Sat by Pulse Oximetry 97 Intake and Output: Intake & Output 01/13/19 01/14/19 01/15/19 01/16/19 11:59 11:59 11:59 11:59 Intake Total 125 / 125 1520 / 1520 2415 / 2415 640 / 640 Output Total 150 / 150 1950 / 1950 800 / 800 Balance 125 / 125 1370 / 1370 465 / 465 -160 / -160 - Physical Exam Oriented: Normal Eyes: Normal Ear: Normal Nose: Normal Throat: Normal Cardiovascular: Normal. negative: S3, S4, Murmur : Normal Auscultation: Bowel Sounds: Normal Palpation: Normal Tenderness: Diffuse, Moderate. negative: Rebound, Guarding, Rigidity Skin: Decreased Turgur Musculoskeletal: Normal Psychiatric: Normal Mood Description: Calm Affect: Normal Speech Pattern: Clear, Appropriate - Laboratory and Diagnostics Result Diagrams: 01/15/19 05:03 01/15/19 05:03 Labs: 01/15/19 17:50 Abdomen Gram Stain - Final 01/13/19 15:57 Blood Blood Culture - Preliminary 01/13/19 15:51 Blood Blood Culture - Preliminary Laboratory WBC 5.4 X10^3/uL (3.6-10.0) 01/15/19 05:03 RBC 3.63 X10^6/uL (4.7-6.0) L 01/15/19 05:03 Hgb 11.6 g/dL (13.5-18.0) L 01/15/19 05:03 Hct 33.5 % (42.0-54.0) L 01/15/19 05:03 MCV 92.3 fL (80.0-100.0) 01/15/19 05:03 MCH 31.9 pg (27.0-34.0) 01/15/19 05:03 MCHC 34.5 g/dL (33.0-35.0) 01/15/19 05:03 RDW 14.3 % (11.6-16.5) 01/15/19 05:03 Plt Count 258 X10^3/uL (150.0-450.0) 01/15/19 05:03 MPV 9.6 fL (7.4-11.0) 01/15/19 05:03 Neut % (Auto) 69.0 % (42.0-75.0) 01/15/19 05:03 Lymph % (Auto) 16.8 % (21.0-51.0) L 01/15/19 05:03 [place] % (Auto) 9.5 % (0.0-13.0) 01/15/19 05:03 Eos % (Auto) 3.9 % (0.9-2.9) H 01/15/19 05:03 Baso % (Auto) 0.8 % (0.2-1.0) 01/15/19 05:03 Neut # (Auto) 3.7 x10^3/uL (2.2-4.8) 01/15/19 05:03 Lymph # (Auto) 0.9 X10^3/uL (1.3-2.9) L 01/15/19 05:03 [place] # (Auto) 0.5 x10^3/uL (0.3-0.8) 01/15/19 05:03 Eos # (Auto) 0.2 x10^3/uL (0.0-0.2) 01/15/19 05:03 Baso # (Auto) 0.0 X10^3/uL (0.0-0.1) 01/15/19 05:03 Absolute Nucleated RBC 0.0 /100WBC 01/15/19 05:03 INR Target Range - 01/12/19 20:23 INR 1.11 (0.8-1.3) 01/12/19 20:23 APTT 32.5 SECONDS (22.9-36.5) 01/12/19 20:23 PTT Comment - 01/12/19 20:23 Sodium 136 mmol/L (136-145) 01/15/19 05:03 Corrected Sodium 136 mmol/L (136-145) 01/15/19 05:03 Potassium 3.7 mmol/L (3.5-5.1) 01/15/19 05:03 Chloride 100 mmol/L (98-107) 01/15/19 05:03 Carbon Dioxide 29.6 mmol/L (21-32) 01/15/19 05:03 BUN 17 mg/dL (7-18) 01/15/19 05:03 Creatinine 0.79 mg/dL (0.70-1.30) 01/15/19 05:03 Est GFR (MDRD) Af Amer > 60 (>60) 01/15/19 05:03 Est GFR (MDRD) Non-Af > 60 (>60) 01/15/19 05:03 Glucose 113 mg/dL (65-99) H 01/15/19 05:03 POC Glucose (mg/dL) 120 mg/dL (65-99) H 01/15/19 19:55 Calcium 9.0 mg/dL (8.5-10.1) 01/15/19 05:03 Corrected Calcium 10.4 mg/dL (8.5-10.1) H 01/15/19 05:03 Magnesium 2.4 mg/dL (1.7-2.9) 01/12/19 20:23 Total Bilirubin 0.50 mg/dL (0.2-1.0) 01/15/19 05:03 AST 32 Units/L (15-37) 01/15/19 05:03 ALT 30 Units/L (12-78) 01/15/19 05:03 Alkaline Phosphatase 78 Units/L (46-116) 01/15/19 05:03 Creatine Kinase 19 Units/L (39-308) L 01/12/19 20:23 CK-MB (CK-2) < 1.0 ng/mL (0-4.0) 01/12/19 20:23 CK/CKMB % Calc 5.3 % (<4) 01/12/19 20:23 Troponin I 0.02 ng/mL (0-1.5) 01/12/19 20:23 Total Protein 5.8 g/dL (6.4-8.2) L 01/15/19 05:03 Albumin 2.2 g/dL (3.4-5.0) L 01/15/19 05:03 Globulin 3.6 g/dL (2.5-4.5) 01/15/19 05:03 Albumin/Globulin Ratio 0.6 Ratio (1.1-2.1) L 01/15/19 05:03 Specimen Type Clean catch urine 01/14/19 01:25 Urine Color Yellow (YELLOW) 01/14/19 01:25 Urine Appearance Cloudy (CLEAR) 01/14/19 01:25 Urine pH 8.0 (5.0 - 8.0) 01/14/19 01:25 Ur Specific [place] 1.015 (1.000-1.030) 01/14/19 01:25 Urine Protein 1+ (NEGATIVE) 01/14/19 01:25 Urine Glucose (UA) Negative (NEGATIVE) 01/14/19 01:25 Urine Ketones Negative (NEGATIVE) 01/14/19 01:25 Urine Occult Blood 1+ (NEGATIVE) 01/14/19 01:25 Urine Nitrite Negative (NEGATIVE) 01/14/19 01:25 Urine Bilirubin Negative (NEGATIVE) 01/14/19 01:25 Urine Urobilinogen Normal (NORMAL) 01/14/19 01:25 Ur Leukocyte Esterase 1+ (NEGATIVE) 01/14/19 01:25 Urine RBC None seen /HPF (NONE SEEN) 01/14/19 01:25 Urine WBC 0-2 /HPF (NONE SEEN) 01/14/19 01:25 Ur Squamous Epith Cells Few /HPF (NEGATIVE) 01/14/19 01:25 Amorphous Sediment 4+ /HPF (NEGATIVE) 01/14/19 01:25 Urine Bacteria Negative /HPF (NEGATIVE) 01/14/19 01:25 Ur Culture Indicated? No/not indicated 01/14/19 01:25 - Plan (1) Dehydration with hypernatremia Status: Acute Plan: ADMIT, IV FLUIDS, CONTINUE TO MONITOR (2) Hypercalcemia Status: Acute (3) Hypoalbuminemia due to protein-calorie malnutrition Status: Acute Plan: ALBUMIN 25% IV DAILY, PROCAL IV, ENSURE 1 CAN 4-5X/DAY
[2019-01-16] MEDS: ULTRAM PO PRN ×2 (01:59→21:36)
[2019-01-16 05:22] LABS: BASOPHILS % (AUTO) 0.7 % (0.2-1.0); EOSINOPHILS # (AUTO) 0.2 x10^3/uL (0.0-0.2); EOSINOPHILS % (AUTO) 2.9 % (0.9-2.9); HEMATOCRIT 33.7 % (42.0-54.0); HEMOGLOBIN 11.5 g/dL (13.5-18.0); LYMPHOCYTES # (AUTO) 0.9 X10^3/uL (1.3-2.9); LYMPHOCYTES % (AUTO) 14.6 % (21.0-51.0); MEAN CORPUSCULAR HEMOGLOBIN 31.9 pg (27.0-34.0); MEAN CORPUSCULAR HGB CONC 34.1 g/dL (33.0-35.0); MEAN CORPUSCULAR VOLUME 93.5 fL (80.0-100.0); MEAN PLATELET VOLUME 9.9 fL (7.4-11.0); MONOCYTES # (AUTO) 0.7 x10^3/uL (0.3-0.8); MONOCYTES % (AUTO) 11.7 % (0.0-13.0); NEUTROPHILS # (AUTO) 4.2 x10^3/uL (2.2-4.8); NEUTROPHILS % (AUTO) 70.1 % (42.0-75.0); PLATELET COUNT 250 X10^3/uL (150.0-450.0); RED BLOOD COUNT 3.61 X10^6/uL (4.7-6.0); RED CELL DISTRIBUTION WIDTH 14.1 % (11.6-16.5); WHITE BLOOD COUNT 5.9 X10^3/uL (3.6-10.0)
[2019-01-16 05:41] LABS: ALANINE AMINOTRANSFERASE 25 Units/L (12-78); ALBUMIN 2.7 g/dL (3.4-5.0); ALKALINE PHOSPHATASE 75 Units/L (46-116); ASPARTATE AMINO TRANSFERASE 34 Units/L (15-37); BLOOD UREA NITROGEN 15 mg/dL (7-18); CALCIUM 9.3 mg/dL (8.5-10.1); CARBON DIOXIDE 28.8 mmol/L (21-32); CHLORIDE 101 mmol/L (98-107); COR CA(FOR HYPOALB) 10.3 mg/dL (8.5-10.1); SODIUM 136 mmol/L (136-145); TOTAL PROTEIN 6.1 g/dL (6.4-8.2); eGFR NON BLACK RACES > 60 (>60)
[2019-01-16] MEDS: ALBUMIN HUMAN 25%- 100 ML 100 ML IV SCH (09:32)
[2019-01-16] MEDS: LOVENOX INJ 30 MG SYR SC SCH ×2 (09:32→21:27)
[2019-01-16] MEDS: CHRONULAC PEG SCH (13:11)
[2019-01-16] MEDS: PROCALAMINE 3 % 1,000 ML IV SCH (21:29)
[2019-01-16] MEDS: D5W 1000 ML IV 1,000 ML IV SCH (21:30)
--- NOTE | 2019-01-16 21:59 | PCM.PROG ---
Progress Note - Progress Note for Day of Date of Exam: 01/15/19 - Subjective Subjective: WAS ADMITTED FOR DEHYDRATION, HYPERNATREMIA, HYPERCALCEMIA, AND PROTEIN DEFICIENCY. HE RECENTLY HAD A G-TUBE REPLACEMENT AND WAS TREATED FOR PNEUMONIA WITHIN THE LAST TWO WEEKS. TODAY, HE IS ALERT AND ORIENTED, LYING IN BED ON MORNING ROUNDS. HE CONTINUES WITH COMPLAINTS OF WEAKNE SS TODAY. STAFF REPORTS THAT HE IS AMBULATING WELL WITH ASSISTANCE. ON EXAMINATION, HEART IS REGULAR IN RATE AND RHYTHM. BILATERAL LUNGS ARE NOTED WITH DIMINISHED LUNG SOUNDS THROUGHOUT. ABDOMEN IS FLAT, SOFT, AND NOTED WITH MILD, DIFFUSE PAIN. HYPOACTIVE BOWEL SOUNDS NOTED IN ALL QUADRANTS. HIS VITALS THIS MORNING ARE: 98.0-60-20-97%-130/64. LABS WERE OBTAINED. ABNORMAL LAB VALUES INCLUDE THE FOLLOWING: RBC 3.63, HGB 11.6, HCT 33.5, GLUCOSE 113, TOTAL PROTEIN 5.8, ALBUMIN 2.2. HE IS CURRENTLY RECEIVING D5W AT 80ML/HR, PROCAL AT 40ML/HR, AND ALBUMIN 25% IV DAILY. WE WILL CONTINUE WITH CURRENT PLAN OF CARE TODAY. OTHERWISE, WE PLAN TO FOLLOW UP WITH AM LABS AND CONTINUE TO MONITOR. - Past Medical Family Social History Past Med/Fam/Surg Hx: No changes since H&P Allergies: Allergies diphenhydramine [From Benadryl] Allergy (Verified 01/12/19 18:55) ketorolac [From Toradol] Allergy (Verified 01/13/19 13:58) lorazepam [From Ativan] Allergy (Verified 01/13/19 13:58) morphine Allergy (Verified 01/12/19 18:55) Penicillins Allergy (Verified 01/12/19 18:55) - Review of Systems ROS: No change since H&P - Vital Signs and I&O's Vital Signs: Temperature 97.7 F Pulse Rate [Left] 66 Pulse Rate 69 Respiratory Rate 18 Blood Pressure [Right Arm] 149/67 Blood Pressure [Left Arm] 121/67 Blood Pressure 132/63 O2 Sat by Pulse Oximetry 99 Intake and Output: Intake & Output 01/14/19 01/15/19 01/16/19 01/17/19 11:59 11:59 11:59 11:59 Intake Total 1520 / 1520 2415 / 2415 3020 / 3020 0 / 0 Output Total 150 / 150 1950 / 1950 1125 / 1125 Balance 1370 / 1370 465 / 465 1895 / 1895 0 / 0 - Physical Exam Oriented: Normal Eyes: Normal Ear: Normal Nose: Normal Throat: Normal Cardiovascular: Normal. negative: S3, S4, Murmur : Normal Auscultation: Bowel Sounds: Normal Tenderness: Diffuse, Moderate. negative: Rebound, Guarding, Rigidity Skin: Decreased Turgur Musculoskeletal: Normal Psychiatric: Normal Mood Description: Calm Affect: Normal Speech Pattern: Clear, Appropriate - Laboratory and Diagnostics Result Diagrams: 01/16/19 04:05 01/16/19 04:05 Labs: 01/15/19 17:50 Abdomen Gram Stain - Final 01/15/19 17:50 Abdomen Wound Culture - Preliminary 01/13/19 15:57 Blood Blood Culture - Preliminary 01/13/19 15:51 Blood Blood Culture - Preliminary Laboratory WBC 5.9 X10^3/uL (3.6-10.0) 01/16/19 04:05 RBC 3.61 X10^6/uL (4.7-6.0) L 01/16/19 04:05 Hgb 11.5 g/dL (13.5-18.0) L 01/16/19 04:05 Hct 33.7 % (42.0-54.0) L 01/16/19 04:05 MCV 93.5 fL (80.0-100.0) 01/16/19 04:05 MCH 31.9 pg (27.0-34.0) 01/16/19 04:05 MCHC 34.1 g/dL (33.0-35.0) 01/16/19 04:05 RDW 14.1 % (11.6-16.5) 01/16/19 04:05 Plt Count 250 X10^3/uL (150.0-450.0) 01/16/19 04:05 MPV 9.9 fL (7.4-11.0) 01/16/19 04:05 Neut % (Auto) 70.1 % (42.0-75.0) 01/16/19 04:05 Lymph % (Auto) 14.6 % (21.0-51.0) L 01/16/19 04:05 [place] % (Auto) 11.7 % (0.0-13.0) 01/16/19 04:05 Eos % (Auto) 2.9 % (0.9-2.9) 01/16/19 04:05 Baso % (Auto) 0.7 % (0.2-1.0) 01/16/19 04:05 Neut # (Auto) 4.2 x10^3/uL (2.2-4.8) 01/16/19 04:05 Lymph # (Auto) 0.9 X10^3/uL (1.3-2.9) L 01/16/19 04:05 [place] # (Auto) 0.7 x10^3/uL (0.3-0.8) 01/16/19 04:05 Eos # (Auto) 0.2 x10^3/uL (0.0-0.2) 01/16/19 04:05 Baso # (Auto) 0.0 X10^3/uL (0.0-0.1) 01/16/19 04:05 Absolute Nucleated RBC 0.0 /100WBC 01/16/19 04:05 INR Target Range - 01/12/19 20:23 INR 1.11 (0.8-1.3) 01/12/19 20:23 APTT 32.5 SECONDS (22.9-36.5) 01/12/19 20:23 PTT Comment - 01/12/19 20:23 Sodium 136 mmol/L (136-145) 01/16/19 04:05 Corrected Sodium TNP 01/16/19 04:05 Potassium 4.0 mmol/L (3.5-5.1) 01/16/19 04:05 Chloride 101 mmol/L (98-107) 01/16/19 04:05 Carbon Dioxide 28.8 mmol/L (21-32) 01/16/19 04:05 BUN 15 mg/dL (7-18) 01/16/19 04:05 Creatinine 0.80 mg/dL (0.70-1.30) 01/16/19 04:05 Est GFR (MDRD) Af Amer > 60 (>60) 01/16/19 04:05 Est GFR (MDRD) Non-Af > 60 (>60) 01/16/19 04:05 Glucose 99 mg/dL (65-99) 01/16/19 04:05 POC Glucose (mg/dL) 118 mg/dL (65-99) H 01/16/19 21:24 Calcium 9.3 mg/dL (8.5-10.1) 01/16/19 04:05 Corrected Calcium 10.3 mg/dL (8.5-10.1) H 01/16/19 04:05 Magnesium 2.4 mg/dL (1.7-2.9) 01/12/19 20:23 Total Bilirubin 0.60 mg/dL (0.2-1.0) 01/16/19 04:05 AST 34 Units/L (15-37) 01/16/19 04:05 ALT 25 Units/L (12-78) 01/16/19 04:05 Alkaline Phosphatase 75 Units/L (46-116) 01/16/19 04:05 Creatine Kinase 19 Units/L (39-308) L 01/12/19 20:23 CK-MB (CK-2) < 1.0 ng/mL (0-4.0) 01/12/19 20:23 CK/CKMB % Calc 5.3 % (<4) 01/12/19 20:23 Troponin I 0.02 ng/mL (0-1.5) 01/12/19 20:23 Total Protein 6.1 g/dL (6.4-8.2) L 01/16/19 04:05 Albumin 2.7 g/dL (3.4-5.0) L 01/16/19 04:05 Globulin 3.4 g/dL (2.5-4.5) 01/16/19 04:05 Albumin/Globulin Ratio 0.8 Ratio (1.1-2.1) L 01/16/19 04:05 Specimen Type Clean catch urine 01/14/19 01:25 Urine Color Yellow (YELLOW) 01/14/19 01:25 Urine Appearance Cloudy (CLEAR) 01/14/19 01:25 Urine pH 8.0 (5.0 - 8.0) 01/14/19 01:25 Ur Specific [place] 1.015 (1.000-1.030) 01/14/19 01:25 Urine Protein 1+ (NEGATIVE) 01/14/19 01:25 Urine Glucose (UA) Negative (NEGATIVE) 01/14/19 01:25 Urine Ketones Negative (NEGATIVE) 01/14/19 01:25 Urine Occult Blood 1+ (NEGATIVE) 01/14/19 01:25 Urine Nitrite Negative (NEGATIVE) 01/14/19 01:25 Urine Bilirubin Negative (NEGATIVE) 01/14/19 01:25 Urine Urobilinogen Normal (NORMAL) 01/14/19 01:25 Ur Leukocyte Esterase 1+ (NEGATIVE) 01/14/19 01:25 Urine RBC None seen /HPF (NONE SEEN) 01/14/19 01:25 Urine WBC 0-2 /HPF (NONE SEEN) 01/14/19 01:25 Ur Squamous Epith Cells Few /HPF (NEGATIVE) 01/14/19 01:25 Amorphous Sediment 4+ /HPF (NEGATIVE) 01/14/19 01:25 Urine Bacteria Negative /HPF (NEGATIVE) 01/14/19 01:25 Ur Culture Indicated? No/not indicated 01/14/19 01:25 - Plan (1) Dehydration with hypernatremia Status: Acute Plan: ADMIT, IV FLUIDS, CONTINUE TO MONITOR (2) Hypercalcemia Status: Acute (3) Hypoalbuminemia due to protein-calorie malnutrition Status: Acute Plan: ALBUMIN 25% IV DAILY, PROCAL IV, ENSURE 1 CAN 4-5X/DAY
[2019-01-17] MEDS: D5W 1000 ML IV 1,000 ML IV SCH ×2 (02:29→18:37)
[2019-01-17 05:16] LABS: BASOPHILS # (AUTO) 0.1 X10^3/uL (0.0-0.1); BASOPHILS % (AUTO) 0.9 % (0.2-1.0); EOSINOPHILS # (AUTO) 0.2 x10^3/uL (0.0-0.2); EOSINOPHILS % (AUTO) 3.4 % (0.9-2.9); HEMATOCRIT 35.8 % (42.0-54.0); HEMOGLOBIN 12.4 g/dL (13.5-18.0); LYMPHOCYTES # (AUTO) 1.2 X10^3/uL (1.3-2.9); LYMPHOCYTES % (AUTO) 18.9 % (21.0-51.0); MEAN CORPUSCULAR HEMOGLOBIN 32.3 pg (27.0-34.0); MEAN CORPUSCULAR HGB CONC 34.7 g/dL (33.0-35.0); MEAN PLATELET VOLUME 9.6 fL (7.4-11.0); MONOCYTES # (AUTO) 0.7 x10^3/uL (0.3-0.8); MONOCYTES % (AUTO) 10.4 % (0.0-13.0); NEUTROPHILS # (AUTO) 4.4 x10^3/uL (2.2-4.8); NEUTROPHILS % (AUTO) 66.4 % (42.0-75.0); PLATELET COUNT 284 X10^3/uL (150.0-450.0); RED BLOOD COUNT 3.85 X10^6/uL (4.7-6.0); RED CELL DISTRIBUTION WIDTH 13.9 % (11.6-16.5); WHITE BLOOD COUNT 6.6 X10^3/uL (3.6-10.0)
[2019-01-17 05:22] LABS: ALANINE AMINOTRANSFERASE 43 Units/L (12-78); ALBUMIN 3.3 g/dL (3.4-5.0); ALKALINE PHOSPHATASE 85 Units/L (46-116); ASPARTATE AMINO TRANSFERASE 43 Units/L (15-37); BLOOD UREA NITROGEN 16 mg/dL (7-18); CALCIUM 9.8 mg/dL (8.5-10.1); CARBON DIOXIDE 29.1 mmol/L (21-32); CHLORIDE 100 mmol/L (98-107); COR CA(FOR HYPOALB) 10.4 mg/dL (8.5-10.1); CREATININE 0.85 mg/dL (0.70-1.30); SODIUM 137 mmol/L (136-145); TOTAL PROTEIN 7.1 g/dL (6.4-8.2); eGFR NON BLACK RACES > 60 (>60)
[2019-01-17] MEDS: CHRONULAC PEG SCH (10:46)
[2019-01-17] MEDS: LOVENOX INJ 30 MG SYR SC SCH ×2 (10:47→21:45)
[2019-01-17] MEDS: ALBUMIN HUMAN 25%- 100 ML 100 ML IV SCH (10:47)
[2019-01-17] MEDS: ULTRAM PO PRN ×2 (14:21→21:46)
--- NOTE | 2019-01-17 19:44 | PCM.PROG ---
Progress Note - Progress Note for Day of Date of Exam: 01/16/19 - Subjective Subjective: WAS ADMITTED FOR DEHYDRATION, HYPERNATREMIA, HYPERCALCEMIA, AND PROTEIN DEFICIENCY. HE RECENTLY HAD A G-TUBE REPLACEMENT AND WAS TREATED FOR PNEUMONIA WITHIN THE LAST TWO WEEKS. TODAY, HE IS ALERT AND ORIENTED, LYING IN BED ON MORNING ROUNDS. HE CONTINUES WITH COMPLAINTS OF WEAKNE SS TODAY. HE ALSO REPORTS DRAINAGE FROM SITE OF PEG TUBE. STAFF REPORTS THAT HE IS AMBULATING WELL WITH ASSISTANCE. ON EXAMINATION, HEART IS REGULAR IN RATE AND RHYTHM. BILATERAL LUNGS ARE NOTED WITH DIMINISHED LUNG SOUNDS THROUGHOUT. ABDOMEN IS FLAT, SOFT, AND NOTED WITH MILD, DIFFUSE PAIN. HYPOACTIVE BOWEL SOUNDS NOTED IN ALL QUADRANTS. THERE IS A SMALL AMOUNT OF PURULENT DRAINAGE FROM PEG TUBE SITE THIS MORNING. HIS VITALS THIS MORNING ARE: 97.6-63-18-98%-142/65. LABS WERE OBTAINED. ABNORMAL LAB VALUES INCLUDE THE FOLLOWING: RBC 3.61, HGB 11.5, HCT 33.7, TOTAL PROTEIN 2.7. A WOUND CULTURES IS PENDING. HE IS CURRENTLY RECEIVING D5W AT 80ML/HR, PROCAL AT 40ML/HR, AND ALBUMIN 25% IV DAILY. WE WILL CONTINUE WITH CURRENT PLAN OF CARE TODAY. OTHERWISE, WE PLAN TO FOLLOW UP WITH AM LABS AND CONTINUE TO MONITOR. - Past Medical Family Social History Past Med/Fam/Surg Hx: No changes since H&P Allergies: Allergies diphenhydramine [From Benadryl] Allergy (Verified 01/12/19 18:55) ketorolac [From Toradol] Allergy (Verified 01/13/19 13:58) lorazepam [From Ativan] Allergy (Verified 01/13/19 13:58) morphine Allergy (Verified 01/12/19 18:55) Penicillins Allergy (Verified 01/12/19 18:55) - Review of Systems ROS: No change since H&P - Vital Signs and I&O's Vital Signs: Temperature 98.6 F Pulse Rate [Right Brachial] 54 Pulse Rate [Left] 86 Pulse Rate 69 Respiratory Rate 18 Blood Pressure [Right Arm] 135/58 Blood Pressure [Left Arm] 128/72 Blood Pressure 132/63 O2 Sat by Pulse Oximetry 99 Intake and Output: Intake & Output 01/15/19 01/16/19 01/17/19 01/18/19 11:59 11:59 11:59 11:59 Intake Total 2415 / 2415 3020 / 3020 0 / 0 1976 Output Total 1949 / 1949 1125 / 1125 Balance 465 / 465 1895 / 1895 0 / 0 1976 - Physical Exam Oriented: Normal Eyes: Normal Ear: Normal Nose: Normal Throat: Normal Respiratory: Normal Cardiovascular: Normal. negative: S3, S4, Murmur : Normal Auscultation: Bowel Sounds: Normal Palpation: Normal Tenderness: Diffuse, Moderate. negative: Rebound, Guarding, Rigidity Skin: Decreased Turgur Musculoskeletal: Normal Psychiatric: Normal Mood Description: Calm Affect: Normal Speech Pattern: Clear, Appropriate - Laboratory and Diagnostics Result Diagrams: 01/17/19 04:00 01/17/19 04:00 Labs: 01/15/19 17:50 Abdomen Gram Stain - Final 01/15/19 17:50 Abdomen Wound Culture - Final Methicillin Resis Staph Aureus 01/13/19 15:57 Blood Blood Culture - Preliminary 01/13/19 15:51 Blood Blood Culture - Preliminary Laboratory WBC 6.6 X10^3/uL (3.6-10.0) 01/17/19 04:00 RBC 3.85 X10^6/uL (4.7-6.0) L 01/17/19 04:00 Hgb 12.4 g/dL (13.5-18.0) L 01/17/19 04:00 Hct 35.8 % (42.0-54.0) L 01/17/19 04:00 MCV 93.0 fL (80.0-100.0) 01/17/19 04:00 MCH 32.3 pg (27.0-34.0) 01/17/19 04:00 MCHC 34.7 g/dL (33.0-35.0) 01/17/19 04:00 RDW 13.9 % (11.6-16.5) 01/17/19 04:00 Plt Count 284 X10^3/uL (150.0-450.0) 01/17/19 04:00 MPV 9.6 fL (7.4-11.0) 01/17/19 04:00 Neut % (Auto) 66.4 % (42.0-75.0) 01/17/19 04:00 Lymph % (Auto) 18.9 % (21.0-51.0) L 01/17/19 04:00 [place] % (Auto) 10.4 % (0.0-13.0) 01/17/19 04:00 Eos % (Auto) 3.4 % (0.9-2.9) H 01/17/19 04:00 Baso % (Auto) 0.9 % (0.2-1.0) 01/17/19 04:00 Neut # (Auto) 4.4 x10^3/uL (2.2-4.8) 01/17/19 04:00 Lymph # (Auto) 1.2 X10^3/uL (1.3-2.9) L 01/17/19 04:00 [place] # (Auto) 0.7 x10^3/uL (0.3-0.8) 01/17/19 04:00 Eos # (Auto) 0.2 x10^3/uL (0.0-0.2) 01/17/19 04:00 Baso # (Auto) 0.1 X10^3/uL (0.0-0.1) 01/17/19 04:00 Absolute Nucleated RBC 0.0 /100WBC 01/17/19 04:00 INR Target Range - 01/12/19 20:23 INR 1.11 (0.8-1.3) 01/12/19 20:23 APTT 32.5 SECONDS (22.9-36.5) 01/12/19 20:23 PTT Comment - 01/12/19 20:23 Sodium 137 mmol/L (136-145) 01/17/19 04:00 Corrected Sodium TNP 01/17/19 04:00 Potassium 3.9 mmol/L (3.5-5.1) 01/17/19 04:00 Chloride 100 mmol/L (98-107) 01/17/19 04:00 Carbon Dioxide 29.1 mmol/L (21-32) 01/17/19 04:00 BUN 16 mg/dL (7-18) 01/17/19 04:00 Creatinine 0.85 mg/dL (0.70-1.30) 01/17/19 04:00 Est GFR (MDRD) Af Amer > 60 (>60) 01/17/19 04:00 Est GFR (MDRD) Non-Af > 60 (>60) 01/17/19 04:00 Glucose 87 mg/dL (65-99) 01/17/19 04:00 POC Glucose (mg/dL) 130 mg/dL (65-99) H 01/17/19 16:34 Calcium 9.8 mg/dL (8.5-10.1) 01/17/19 04:00 Corrected Calcium 10.4 mg/dL (8.5-10.1) H 01/17/19 04:00 Magnesium 2.4 mg/dL (1.7-2.9) 01/12/19 20:23 Total Bilirubin 0.50 mg/dL (0.2-1.0) 01/17/19 04:00 AST 43 Units/L (15-37) H 01/17/19 04:00 ALT 43 Units/L (12-78) 01/17/19 04:00 Alkaline Phosphatase 85 Units/L (46-116) 01/17/19 04:00 Creatine Kinase 19 Units/L (39-308) L 01/12/19 20:23 CK-MB (CK-2) < 1.0 ng/mL (0-4.0) 01/12/19 20:23 CK/CKMB % Calc 5.3 % (<4) 01/12/19 20:23 Troponin I 0.02 ng/mL (0-1.5) 01/12/19 20:23 Total Protein 7.1 g/dL (6.4-8.2) 01/17/19 04:00 Albumin 3.3 g/dL (3.4-5.0) L 01/17/19 04:00 Globulin 3.8 g/dL (2.5-4.5) 01/17/19 04:00 Albumin/Globulin Ratio 0.9 Ratio (1.1-2.1) L 01/17/19 04:00 Specimen Type Clean catch urine 01/14/19 01:25 Urine Color Yellow (YELLOW) 01/14/19 01:25 Urine Appearance Cloudy (CLEAR) 01/14/19 01:25 Urine pH 8.0 (5.0 - 8.0) 01/14/19 01:25 Ur Specific [place] 1.015 (1.000-1.030) 01/14/19 01:25 Urine Protein 1+ (NEGATIVE) 01/14/19 01:25 Urine Glucose (UA) Negative (NEGATIVE) 01/14/19 01:25 Urine Ketones Negative (NEGATIVE) 01/14/19 01:25 Urine Occult Blood 1+ (NEGATIVE) 01/14/19 01:25 Urine Nitrite Negative (NEGATIVE) 01/14/19 01:25 Urine Bilirubin Negative (NEGATIVE) 01/14/19 01:25 Urine Urobilinogen Normal (NORMAL) 01/14/19 01:25 Ur Leukocyte Esterase 1+ (NEGATIVE) 01/14/19 01:25 Urine RBC None seen /HPF (NONE SEEN) 01/14/19 01:25 Urine WBC 0-2 /HPF (NONE SEEN) 01/14/19 01:25 Ur Squamous Epith Cells Few /HPF (NEGATIVE) 01/14/19 01:25 Amorphous Sediment 4+ /HPF (NEGATIVE) 01/14/19 01:25 Urine Bacteria Negative /HPF (NEGATIVE) 01/14/19 01:25 Ur Culture Indicated? No/not indicated 01/14/19 01:25 - Plan (1) Dehydration with hypernatremia Status: Acute Plan: IV FLUIDS, CONTINUE TO MONITOR (2) Hypercalcemia Status: Acute (3) Hypoalbuminemia due to protein-calorie malnutrition Status: Acute Plan: ALBUMIN 25% IV DAILY, PROCAL IV, ENSURE 1 CAN 4-5X/DAY
[2019-01-17] MEDS: PROCALAMINE 3 % 1,000 ML IV SCH (21:48)
[2019-01-17] MEDS: CIPRO IV 400 MG PREMIX* 400 MG/200 ML IV.SOLN. IV SCH ×2 (21:49→22:12)
[2019-01-18 05:43] LABS: BASOPHILS # (AUTO) 0.1 X10^3/uL (0.0-0.1); EOSINOPHILS # (AUTO) 0.3 x10^3/uL (0.0-0.2); EOSINOPHILS % (AUTO) 4.4 % (0.9-2.9); HEMATOCRIT 31.9 % (42.0-54.0); HEMOGLOBIN 11.2 g/dL (13.5-18.0); LYMPHOCYTES # (AUTO) 0.9 X10^3/uL (1.3-2.9); LYMPHOCYTES % (AUTO) 14.5 % (21.0-51.0); MEAN CORPUSCULAR HGB CONC 35.1 g/dL (33.0-35.0); MEAN CORPUSCULAR VOLUME 94.1 fL (80.0-100.0); MEAN PLATELET VOLUME 9.8 fL (7.4-11.0); MONOCYTES # (AUTO) 0.7 x10^3/uL (0.3-0.8); MONOCYTES % (AUTO) 11.3 % (0.0-13.0); NEUTROPHILS # (AUTO) 4.2 x10^3/uL (2.2-4.8); NEUTROPHILS % (AUTO) 68.8 % (42.0-75.0); PLATELET COUNT 229 X10^3/uL (150.0-450.0); RED BLOOD COUNT 3.39 X10^6/uL (4.7-6.0); RED CELL DISTRIBUTION WIDTH 13.7 % (11.6-16.5); WHITE BLOOD COUNT 6.1 X10^3/uL (3.6-10.0)
[2019-01-18 06:05] LABS: ALANINE AMINOTRANSFERASE 38 Units/L (12-78); ALKALINE PHOSPHATASE 69 Units/L (46-116); ASPARTATE AMINO TRANSFERASE 34 Units/L (15-37); BLOOD UREA NITROGEN 23 mg/dL (7-18); CALCIUM 9.2 mg/dL (8.5-10.1); CARBON DIOXIDE 30.3 mmol/L (21-32); CHLORIDE 100 mmol/L (98-107); CREATININE 0.83 mg/dL (0.70-1.30); SODIUM 137 mmol/L (136-145); eGFR NON BLACK RACES > 60 (>60)
[2019-01-18] MEDS: CHRONULAC PEG SCH (08:49)
[2019-01-18] MEDS: ALBUMIN HUMAN 25%- 100 ML 100 ML IV SCH ×2 (08:49→10:29)
[2019-01-18] MEDS: CIPRO IV 400 MG PREMIX* 400 MG/200 ML IV.SOLN. IV SCH (08:49)
[2019-01-18] MEDS: LOVENOX INJ 30 MG SYR SC SCH (08:51)
[2019-01-18 09:24] VITALS: BP 124/58
== END 2019-01-18 10:40 | disposition home or self-care (01) | DRG 641 ==
LOC: ER 18:52 → MED/SURG 18:52
PROVIDERS: ADMIT Internal Medicine; ATTEND Internal Medicine
DX: N20.0 Calculus of kidney; Z93.1 Gastrostomy status; E87.5 Hyperkalemia; R06.02 Shortness of breath; E86.0 Dehydration; E88.09 Other disorders of plasma-protein metabolism, not elsewhere classified; R94.31 Abnormal electrocardiogram [ECG] [EKG]; Z66 Do not resuscitate; Z85.21 Personal history of malignant neoplasm of larynx; Z51.5 Encounter for palliative care; J90 Pleural effusion, not elsewhere classified; Z99.81 Dependence on supplemental oxygen
CPT/HCPCS: 36415; 71010; 71045; 74176; 80053; 81001; 82550; 82553; 83735; 84132; 84484; 85025; 85610; 85730; 87040; 87070; 87075; 87077; 87186; 87205; 93005; 94760; 96365; 96374; 97110; 97116; 97162; 97166; 97530; 97535; 99284; A4216; A4222; B5200; P9047; G0378; J0744; J1650; J1885; J2060; J7030; J7060

== ENCOUNTER 2019-09-13 19:36 | Observation (INO) ==
[2019-09-13 20:34] LABS: BASOPHILS % (AUTO) 0.4 % (0.2-1.0); EOSINOPHILS % (AUTO) 0.6 % (0.9-2.9); HEMATOCRIT 40.2 % (42.0-54.0); HEMOGLOBIN 13.6 g/dL (13.5-18.0); LYMPHOCYTES # (AUTO) 0.9 X10^3/uL (1.3-2.9); LYMPHOCYTES % (AUTO) 10.6 % (21.0-51.0); MEAN CORPUSCULAR HGB CONC 33.8 g/dL (33.0-35.0); MEAN CORPUSCULAR VOLUME 97.6 fL (80.0-100.0); MEAN PLATELET VOLUME 9.3 fL (7.4-11.0); MONOCYTES # (AUTO) 0.7 x10^3/uL (0.3-0.8); MONOCYTES % (AUTO) 7.7 % (0.0-13.0); NEUTROPHILS % (AUTO) 80.7 % (42.0-75.0); PLATELET COUNT 160 X10^3/uL (150.0-450.0); RED BLOOD COUNT 4.12 X10^6/uL (4.7-6.0); RED CELL DISTRIBUTION WIDTH 13.9 % (11.6-16.5); WHITE BLOOD COUNT 8.7 X10^3/uL (3.6-10.0)
[2019-09-13 20:44] LABS: ALANINE AMINOTRANSFERASE 58 Units/L (12-78); ALBUMIN 2.9 g/dL (3.4-5.0); ALKALINE PHOSPHATASE 96 Units/L (46-116); ASPARTATE AMINO TRANSFERASE 42 Units/L (15-37); BLOOD UREA NITROGEN 22 mg/dL (7-18); CALCIUM 9.1 mg/dL (8.5-10.1); CARBON DIOXIDE 34.8 mmol/L (21-32); CHLORIDE 103 mmol/L (98-107); CREATININE 0.86 mg/dL (0.70-1.30); SODIUM 141 mmol/L (136-145); TOTAL PROTEIN 6.5 g/dL (6.4-8.2); eGFR NON BLACK RACES > 60 (>60)
--- NOTE | 2019-09-13 21:16 | DR.GENAD ---
HPI - Complaint/Symptoms Chief Complaint Doctors Comments: Patient states he had a G-tube placed two days ago in [place], [place] by Dr. George. 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 He is being fed with ENsure four cans daily. One can every six hours. He denies history of transfusion. He do not have a local doctor. son states he noticed a small amount of blood when the nurse was there yesterday but today when he aspirated he got dark blook and his has had dark blood in his tube since. Patient denies chest pain, SOB, cold, cough nausea or vomiting. states he had a large bowel movement today and it did not have any blood in his stool. He denies tobacco or alcoho usage. Chief Complaint:: pt states" i got blood in my gtube for 2 days" pt had gtube placed on monday in [place] - Nurses notes reviewed Nurses Notes Review: Yes - Source History Provided: Patient - Mode of Arrival Mode of Arrival: EMS - Timing Onset of Chief Complaint: 09/12/19 Came on: Gradually - Duration Duration: Constant How lon Duration: Days - Location Location: G-tube with blood - Severity Severity: Moderate - Modifying Factors Worsens:: nothing Improves:: nothing PMH - PMH Past Medical History: Yes Past Medical History: Anxiety, GERD, Hypothyroidism, Kidney Stones Past Surgical History: Yes Past Surgical History Comment: peg tube - Family History History of Family Medical Conditions: Yes Family Medical History: Cancer - Social History Does patient currently use any type of tobacco product: No Have you used tobacco products in the last 12 months: No Type of Tobacco Use: None Does any household member use tobacco: No Alcohol Use: None Do you use any recreational Drugs:: No Lives With: Family Lives Where: Home - infectious screening In the last 2 months have you had wt loss of >10#?: NO Have you had fever, night sweats or hemotysis?: No Have you traveled outside the country in the last 6 months?: No Isolation: Standard ROS - Review of Systems Constitutional: No Symptoms Reported Eyes: No Symptoms Reported ENTM: No Symptoms Reported Respiratoy: No Symptoms Reported. negative: See HPI, Productive Cough, Non- Productive Cough, Moist Cough, Dry Cough, Hacking Cough, Barking Cough, Brassy Cough, Orthopnea, Short of Breath, Stridor, Wheezing, Hemoptysis, Other Cardiovascular: No Symptoms Reported. negative: See HPI, Chest Pain, Edema, Palpitations, Syncope, Cyanosis, Skin Mottling, Other Gastrointestinal/Abdominal: No Symptoms Reported. negative: See HPI, Abdominal Pain, Constipation, Diarrhea, Nausea, Vomiting, Food Intolerance, Other Genitourinary: No Symptoms Reported Neurological: No Symptoms Reported, Problems Walking Musculoskeletal: No Symptoms Reported Integumentary: No Symptoms Reported Hematologic/Lymphatic: No Symptoms Reported Endocrine: No Symptoms Reported Psychiatric: No Symptoms Reported. negative: See HPI, Anxiety, Depression, Hallucinations, Excessive crying, Suicidal, Other PE - General Limitations: No Limitations General Appearance: Alert, In No Apparent Distress - Head Head Exam: Normal Inspection, Atraumatic, Normocephalic - Eyes Eye exam: Normal Appearance, PERRL, EOMI. negative: Scleral Icterus, Conjunctival Injection, Nystagmus, Miosis, Mydrasis, Periorbital Swelling, Periorbital Tenderness, Other - ENT ENT Exam: Normal Exam, Normal Oropharynx, Normal External Ear Exam, Mucous Membranes Moist (healed surgical scars neck), TM's Normal Bilaterally External Ear Exam: Normal External Inspection TM/Canal Exam: Bilateral Normal Nose Exam: Normal Nose Exam Mouth Exam: Normal Inspection. negative: Drooling, Trismus, Lip Swelling, Tongue Elevation, Tongue Swelling, Laceration, Other - Neck Neck Exam: Full ROM, Trachea Midline. negative: Normal Inspection (healed surgical scars), Tenderness (healed surgical scars) - Chest Chest Inspection: Normal Inspection, Symmetric Chest Wall Rise. negative: Tenderness, Rash, Abscess, Other - Respiratory Respiratory Exam: Normal Lung Sounds Bilat Respiratory Exam: Bilateral Clear to Auscultation - Cardiovascular Cardiovascular Exam: Regular Rate, Normal Rhythm, Normal Heart Sounds - Abdominal Exam Abdominal Exam: Normal Inspection, Normal Bowel Sounds, Soft. negative: Distention, Tenderness, Guarding, Rebound, Rigidity, Dimnished Bowel Sounds, Hyperactive Bowel Sounds, Hypoactive Bowel Sounds, Organomegaly, Trauma, Incision, Ascites, Mass, Bruit, Pulsatile Mass, Hernia, Other Abdominal Tenderness: negative: Epigastrium (g-tube in epigastric area with no active bleeding around g-tube; dark blood in g-tube noted) - Extremities Extremities Exam: Normal Inspection, Full ROM, Normal Capillary Refill. negative: Tenderness, Edema, Joint Swelling, Calf Tenderness, Other - Back Back Exam: Normal Inspection, Full ROM. negative: Tenderness, (R) CVA Tenderness, (L) CVA Tenderness, Muscle Spasm, Paraspinal Tenderness, Vertebral Tenderness, Rashes, (R) Sciatic Notch Tenderness, (L) Sciatic Notch Tendern, (R) Straight Leg Raise, (L) Straight Leg Raise, Other - Neurologic Neurological Exam: Alert, Oriented X3, CN II-XII Intact, Reflexes Normal. negative: Normal Gait (gait not tested) - Psychiatric Psychiatric Exam: Normal Affect, Normal Mood. negative: Depressed, Agitated, Anxious, Flat Affect, Manic, Homicidal Ideation, Suicidal Ideation, Other - Skin Skin Exam: Warm, Dry, Intact, Normal Color. negative: Rash, Cyanosis, Diaphoresis, Erythema, Pallor, Mottled, Other - Vital Signs Vitals: Temperature 98.2 F Pulse Rate 86 Respiratory Rate 22 Blood Pressure [Right Arm] 164/78 Blood Pressure 157/80 O2 Sat by Pulse Oximetry 98 Course - Reevaluation 1st: Resolved - Consultation Called: 23:17 (Dr. Kimbrough states to admit) Call Returned: 23:17 (Dr. Peterson to admit) Consultation Comments: Patient with GI bleed. - Education/Counseling Education/Counseling: Patient, Family Educated On: Treatment, Diagnosis, Needs for Follow Up ROR - Labs Reviewed Laboratory Results Reviewed?: Yes (All labs and x-ray results reviewed and discussed with patient and family) Result Diagrams: 09/13/19 20:23 09/13/19 20:23 - XRAY XRAY Interpreted by: Radiologist (KUB: PEG tube overlying left hemiabdomen with contrast opacifying the stomach and portions of the small bra[place].) - Labs Reviewed Laboratory: WBC 8.7 X10^3/uL (3.6-10.0) 09/13/19 20:23 RBC 4.12 X10^6/uL (4.7-6.0) L 09/13/19 20:23 Hgb 13.6 g/dL (13.5-18.0) 09/13/19 20:23 Hct 40.2 % (42.0-54.0) L 09/13/19 20:23 MCV 97.6 fL (80.0-100.0) 09/13/19 20:23 MCH 33.0 pg (27.0-34.0) 09/13/19: MCHC 33.8 g/dL (33.0-35.0) 09/13/19 RDW 13.9 % (11.6-16.5) 09/13/19 Plt Count 160 X10^3/uL (150.0-450.0) 09/13/19: MPV 9.3 fL (7.4-11.0) 09/13/19: Neut % (Auto) 80.7 % (42.0-75.0) H 09/13/19: Lymph % (Auto) 10.6 % (21.0-51.0) L 09/13/19: [place] % (Auto) 7.7 % (0.0-13.0) 09/13/19: Eos % (Auto) 0.6 % (0.9-2.9) L 09/13/19: Baso % (Auto) 0.4 % (0.2-1.0) 09/13/19: Neut # (Auto) 7.0 x10^3/uL (2.2-4.8) H 09/13/19: Lymph # (Auto) 0.9 X10^3/uL (1.3-2.9) L 09/13/19: [place] # (Auto) 0.7 x10^3/uL (0.3-0.8) 09/13/19: Eos # (Auto) 0.0 x10^3/uL (0.0-0.2) 09/13/19 Baso # (Auto) 0.0 X10^3/uL (0.0-0.1) 09/13/19 Absolute Nucleated RBC 0.0 /100WBC 09/13/19 PT 12.5 SECONDS (11.8-14.3) 09/13/19 INR Target Range - 09/13/19 INR 0.97 (0.8-1.3) 09/13/19: APTT 28.9 SECONDS (22.9-36.5) 09/13/19 20:23 PTT Comment - 09/13/19 20:23 Sodium 141 mmol/L (136-145) 09/13/19 20:23 Corrected Sodium TNP 09/13/19 20:23 Potassium 4.0 mmol/L (3.5-5.1) 09/13/19 20:23 Chloride 103 mmol/L (98-107) 09/13/19 20:23 Carbon Dioxide 34.8 mmol/L (21-32) H 09/13/19 20:23 BUN 22 mg/dL (7-18) H 09/13/19 20:23 Creatinine 0.86 mg/dL (0.70-1.30) 09/13/19 20:23 Est GFR (MDRD) Af Amer > 60 (>60) 09/13/19 20:23 Est GFR (MDRD) Non-Af > 60 (>60) 09/13/19 20:23 Glucose 108 mg/dL (65-99) H 09/13/19 20:23 Calcium 9.1 mg/dL (8.5-10.1) 09/13/19 20:23 Corrected Calcium 10.0 mg/dL (8.5-10.1) 09/13/19 20:23 Total Bilirubin 0.80 mg/dL (0.2-1.0) 09/13/19 20:23 AST 42 Units/L (15-37) H 09/13/19 20:23 ALT 58 Units/L (12-78) 09/13/19 20:23 Alkaline Phosphatase 96 Units/L (46-116) 09/13/19 20:23 Total Protein 6.5 g/dL (6.4-8.2) 09/13/19 20:23 Albumin 2.9 g/dL (3.4-5.0) L 09/13/19 20:23 Globulin 3.6 g/dL (2.5-4.5) 09/13/19 20:23 Albumin/Globulin Ratio 0.8 Ratio (1.1-2.1) L 09/13/19 20:23 Amylase 20 Units/L (25-115) L 09/13/19 20:23 Lipase 65 Units/L (73-393) L 09/13/19 20:23 Gastric Fluid pH 3 09/13/19 22:07 Gastric Occult Blood Positive (NEGATIVE) A 09/13/19 22:07 Stool Description Fob tube 09/13/19 21:34 Stl Occult Blood (IFOB) Positive (NEGATIVE) A 09/13/19 21:34 Opioid - Opioid Risk Tool Total: 0 Total Score Risk Category: Low Risk - Diagnosis Discharge Problem: Acute GI bleeding, Hyperglycemia, Hypoalbuminemia due to protein-calorie malnutrition - Discharge Plan Disposition: 09 ADMITTED INPATIENT Condition: Stable - Follow ups/Referrals Follow ups/Referrals: CARISSA HUNTER [Primary Care Provider] - 3 days - Instructions
[2019-09-13 21:25] LABS: AMYLASE 20 Units/L (25-115); LIPASE 65 Units/L (73-393)
--- NOTE | 2019-09-13 22:07 | RAD ---
HISTORYpeg tube placement Relevant Clinical InformationSTUDYKUBCOMPARISONNoneFINDINGSEvaluation of the abdomen demonstrates a nonspecific bowel g as pattern. A PEG tube is seen overlying the left casie abdomen with contrast opacifying the stomach a nd portions of the small bowel. Correlate clinically.IMPRESSIONAs above.Electronically signed by: CLYDE SMITH (Sep 13, 2019 22:05:46)
[2019-09-13 22:15] LABS: GASTRIC OCCULT BLOOD POSITIVE (NEGATIVE); PH,GASTRIC FLUID 3
[2019-09-13] MEDS ORDERED: PROTONIX INJ 40 MG VIAL ONE (23:20)
[2019-09-13] MEDS: PROTONIX INJ 40 MG VIAL IVP SCH (23:24)
[2019-09-14] MEDS: D5 1/2 NS + KCL 20 MEQ/L 1,000 ML IV SCH ×5 (00:45→23:14)
[2019-09-14] MEDS ORDERED: D5 1/2 NS + KCL 20 MEQ/L 1,000 ML IV ONE (00:48)
[2019-09-14] MEDS ORDERED: ULTRAM ONE (00:53)
[2019-09-14] MEDS: ULTRAM PO PRN (01:29)
[2019-09-14 02:01] VITALS: BMI 21.4
[2019-09-14 06:20] LABS: BASOPHILS # (AUTO) 0.1 X10^3/uL (0.0-0.1); BASOPHILS % (AUTO) 0.7 % (0.2-1.0); EOSINOPHILS % (AUTO) 0.6 % (0.9-2.9); HEMATOCRIT 35.2 % (42.0-54.0); HEMOGLOBIN 12.2 g/dL (13.5-18.0); LYMPHOCYTES % (AUTO) 13.6 % (21.0-51.0); MEAN CORPUSCULAR HEMOGLOBIN 33.7 pg (27.0-34.0); MEAN CORPUSCULAR HGB CONC 34.5 g/dL (33.0-35.0); MEAN CORPUSCULAR VOLUME 97.6 fL (80.0-100.0); MEAN PLATELET VOLUME 9.6 fL (7.4-11.0); MONOCYTES # (AUTO) 0.6 x10^3/uL (0.3-0.8); MONOCYTES % (AUTO) 8.6 % (0.0-13.0); NEUTROPHILS # (AUTO) 5.5 x10^3/uL (2.2-4.8); NEUTROPHILS % (AUTO) 76.5 % (42.0-75.0); PLATELET COUNT 145 X10^3/uL (150.0-450.0); RED BLOOD COUNT 3.61 X10^6/uL (4.7-6.0); RED CELL DISTRIBUTION WIDTH 13.7 % (11.6-16.5); WHITE BLOOD COUNT 7.1 X10^3/uL (3.6-10.0)
[2019-09-14 06:46] LABS: BLOOD UREA NITROGEN 20 mg/dL (7-18); CALCIUM 8.4 mg/dL (8.5-10.1); CARBON DIOXIDE 32.2 mmol/L (21-32); CHLORIDE 105 mmol/L (98-107); COR NA(FOR HYPERGLY) 142 mmol/L (136-145); CREATININE 0.85 mg/dL (0.70-1.30); SODIUM 141 mmol/L (136-145); eGFR NON BLACK RACES > 60 (>60)
[2019-09-14] MEDS: PROTONIX INJ 40 MG VIAL IVP SCH ×2 (10:08→20:26)
--- NOTE | 2019-09-14 10:30 | DR.H&P ---
H&P History & Physical for Day of: H&P Date: 09/14/19 Chief Complaint Chief Complaint: G-tube bleeding Allergies Allergies Allergy/AdvReac Type Severity Reaction Status Date / Time diphenhydramine Allergy Verified 01/12/19 18:55 [From Benadryl] ketorolac [From Toradol] Allergy Verified 01/13/19 13:58 lorazepam [From Ativan] Allergy Verified 01/13/19 13:58 morphine Allergy Verified 01/12/19 18:55 Penicillins Allergy Verified 01/12/19 18:55 History of Present Illness History of Present Illness: Pt is a 89 yo m presenting after son noticed large amount of blood in his G-tube. Pt recently had G-tube placed two days ago in [place], [place] by Dr. George d/t throat cancer. He does state having a large bowel movement yesterday that did not have any blood. Initial vitals/labs:Wbc 8.7>7.1, Hgb 13.6>12.2, Plt 160>145. Gastric occult positive, Stool occult positive. KUB:Evaluation of the abdomen demonstrates a nonspecific bowel gas pattern. A PEG tube is seen overlying the left casie abdomen with contrast opacifying the stomach and portions of the small bowel. Pt started on IVF, PPI, trending hemoglobin. Will consult surgery for further evaluation. Continue to monitor and follow up labs. Past Medical History Past Medical History: Anxiety, GERD, Hypothyroidism and Kidney Stones Additional Medical History: LARYNX CANCER, CARDIAC ARRHYTHMIA, GERD, HX KIDNEY STONES Past Surgical History Surgical History: Ortho Surgery and Other Additional Surgical History: HERNIA REPAIR, RIGHT KNEE REPLACEMENT, RADICAL NECK SURGERY D/T THROAT CANCER Family History Family Medical History: Cancer and Hypertension Social History Does patient currently use any type of tobacco product: No Have you used tobacco products in the last 12 months: No Type of Tobacco Use: None Does any household member use tobacco: No Alcohol Use: None Drug Use: None Medications Home Medications: diphenhydramine [From Benadryl] Allergy (Verified 01/12/19 18:55) ketorolac [From Toradol] Allergy (Verified 01/13/19 13:58) lorazepam [From Ativan] Allergy (Verified 01/13/19 13:58) morphine Allergy (Verified 01/12/19 18:55) Penicillins Allergy (Verified 01/12/19 18:55) CONTINUE taking the following medications levothyroxine [Synthroid] 100 mcg FEEDING TUBE DAILY 09/13/19 [History] nystatin 100,000 unit BUCCAL DAILY 09/13/19 [History] Labs Result Diagrams: 09/14/19 05:56 09/14/19 05:56 Labs: Laboratory WBC 7.1 X10^3/uL (3.6-10.0) 09/14/19 05:56 RBC 3.61 X10^6/uL (4.7-6.0) L 09/14/19 05:56 Hgb 12.2 g/dL (13.5-18.0) L 09/14/19 05:56 Hct 35.2 % (42.0-54.0) L 09/14/19 05:56 MCV 97.6 fL (80.0-100.0) 09/14/19 05:56 MCH 33.7 pg (27.0-34.0) 09/14/19 05:56 MCHC 34.5 g/dL (33.0-35.0) 09/14/19 05:56 RDW 13.7 % (11.6-16.5) 09/14/19 05:56 Plt Count 145 X10^3/uL (150.0-450.0) L 09/14/19 05:56 MPV 9.6 fL (7.4-11.0) 09/14/19 05:56 Neut % (Auto) 76.5 % (42.0-75.0) H 09/14/19 05:56 Lymph % (Auto) 13.6 % (21.0-51.0) L 09/14/19 05:56 [place] % (Auto) 8.6 % (0.0-13.0) 09/14/19 05:56 Eos % (Auto) 0.6 % (0.9-2.9) L 09/14/19 05:56 Baso % (Auto) 0.7 % (0.2-1.0) 09/14/19 05:56 Neut # (Auto) 5.5 x10^3/uL (2.2-4.8) H 09/14/19 05:56 Lymph # (Auto) 1.0 X10^3/uL (1.3-2.9) L 09/14/19 05:56 [place] # (Auto) 0.6 x10^3/uL (0.3-0.8) 09/14/19 05:56 Eos # (Auto) 0.0 x10^3/uL (0.0-0.2) 09/14/19 05:56 Baso # (Auto) 0.1 X10^3/uL (0.0-0.1) 09/14/19 05:56 Absolute Nucleated RBC 0.0 /100WBC 09/14/19 05:56 PT 12.5 SECONDS (11.8-14.3) 09/13/19 20:23 INR Target Range - 09/13/19 20:23 INR 0.97 (0.8-1.3) 09/13/19 20:23 APTT 28.9 SECONDS (22.9-36.5) 09/13/19 20:23 PTT Comment - 09/13/19 20:23 Sodium 141 mmol/L (136-145) 09/14/19 05:56 Corrected Sodium 142 mmol/L (136-145) 09/14/19 05:56 Potassium 4.0 mmol/L (3.5-5.1) 09/14/19 05:56 Chloride 105 mmol/L (98-107) 09/14/19 05:56 Carbon Dioxide 32.2 mmol/L (21-32) H 09/14/19 05:56 BUN 20 mg/dL (7-18) H 09/14/19 05:56 Creatinine 0.85 mg/dL (0.70-1.30) 09/14/19 05:56 Est GFR (MDRD) Af Amer > 60 (>60) 09/14/19 05:56 Est GFR (MDRD) Non-Af > 60 (>60) 09/14/19 05:56 Glucose 131 mg/dL (65-99) H 09/14/19 05:56 Calcium 8.4 mg/dL (8.5-10.1) L 09/14/19 05:56 Corrected Calcium 10.0 mg/dL (8.5-10.1) 09/13/19 20:23 Total Bilirubin 0.80 mg/dL (0.2-1.0) 09/13/19 20:23 AST 42 Units/L (15-37) H 09/13/19 20:23 ALT 58 Units/L (12-78) 09/13/19 20:23 Alkaline Phosphatase 96 Units/L (46-116) 09/13/19 20:23 Total Protein 6.5 g/dL (6.4-8.2) 09/13/19 20:23 Albumin 2.9 g/dL (3.4-5.0) L 09/13/19 20:23 Globulin 3.6 g/dL (2.5-4.5) 09/13/19 20:23 Albumin/Globulin Ratio 0.8 Ratio (1.1-2.1) L 09/13/19 20:23 Amylase 20 Units/L (25-115) L 09/13/19 20:23 Lipase 65 Units/L (73-393) L 09/13/19 20:23 Gastric Fluid pH 3 09/13/19 22:07 Gastric Occult Blood Positive (NEGATIVE) A 09/13/19 22:07 Stool Description Fob tube 09/13/19 21:34 Stl Occult Blood (IFOB) Positive (NEGATIVE) A 09/13/19 21:34 Review of Systems Constitutional: No Symptoms Reported Eyes: No Symptoms Reported ENT: No Symptoms Reported Respiratory: No Symptoms Reported Cardiovascular: No Symptoms Reported Gastrointestinal: No Symptoms Reported Genitourinary: No Symptoms Reported Musculoskeletal: No Symptoms Reported Skin: No Symptoms Reported Neurological: No Symptoms Reported Physical Exam Vital Signs: Temperature 98 F Pulse Rate [Left Brachial] 64 Pulse Rate 86 Respiratory Rate 16 Blood Pressure [Left Arm] 168/72 Blood Pressure [Right Arm] 164/78 Blood Pressure 157/80 O2 Sat by Pulse Oximetry 96 Oriented: Normal Eyes: Normal Ear: Normal Nose: Normal Respiratory: Clear Throughout Cardiovascular: Normal : Normal Auscultation: Bowel Sounds: Normal Palpation: Normal Tenderness: Normal Skin: Other (G-tube noted on abdomen) Musculoskeletal: Normal Psychiatric: Normal Mood Description: Calm Speech Pattern: Clear Assessment/Plan (1) Acute GI bleeding: Status: Acute Plan: IVF, IV protonix 40mg BID, trend hemoglobin. Consult surgery. (2) Hypoalbuminemia due to protein-calorie malnutrition: Status: Acute Plan: Continue ensure 1 can q6h (3) Thrush, oral: Status: Acute Plan: Nystatin Review H&P Reviewed: Yes Patient was examined?: Yes
[2019-09-14] MEDS: NYSTATIN SUSP MT SCH ×3 (12:54→20:26)
[2019-09-15] MEDS: ULTRAM PO PRN (00:33)
[2019-09-15] MEDS: D5 1/2 NS + KCL 20 MEQ/L 1,000 ML IV SCH (05:06)
[2019-09-15 06:28] LABS: BLOOD UREA NITROGEN 13 mg/dL (7-18); CALCIUM 8.5 mg/dL (8.5-10.1); CARBON DIOXIDE 29.5 mmol/L (21-32); CHLORIDE 108 mmol/L (98-107); CREATININE 0.76 mg/dL (0.70-1.30); SODIUM 141 mmol/L (136-145); eGFR NON BLACK RACES > 60 (>60)
[2019-09-15 06:46] LABS: BASOPHILS % (AUTO) 0.7 % (0.2-1.0); EOSINOPHILS # (AUTO) 0.1 x10^3/uL (0.0-0.2); EOSINOPHILS % (AUTO) 1.4 % (0.9-2.9); HEMATOCRIT 33.7 % (42.0-54.0); HEMOGLOBIN 11.5 g/dL (13.5-18.0); LYMPHOCYTES # (AUTO) 0.9 X10^3/uL (1.3-2.9); LYMPHOCYTES % (AUTO) 14.1 % (21.0-51.0); MEAN CORPUSCULAR HEMOGLOBIN 33.7 pg (27.0-34.0); MEAN CORPUSCULAR HGB CONC 34.2 g/dL (33.0-35.0); MEAN CORPUSCULAR VOLUME 98.3 fL (80.0-100.0); MEAN PLATELET VOLUME 10.1 fL (7.4-11.0); MONOCYTES # (AUTO) 0.5 x10^3/uL (0.3-0.8); MONOCYTES % (AUTO) 8.3 % (0.0-13.0); NEUTROPHILS # (AUTO) 4.6 x10^3/uL (2.2-4.8); NEUTROPHILS % (AUTO) 75.5 % (42.0-75.0); PLATELET COUNT 134 X10^3/uL (150.0-450.0); RED BLOOD COUNT 3.43 X10^6/uL (4.7-6.0); RED CELL DISTRIBUTION WIDTH 13.7 % (11.6-16.5); WHITE BLOOD COUNT 6.1 X10^3/uL (3.6-10.0)
[2019-09-15] MEDS: NYSTATIN SUSP MT SCH (10:26)
[2019-09-15] MEDS: PROTONIX INJ 40 MG VIAL IVP SCH (10:27)
--- NOTE | 2019-09-15 11:02 | W.DIS.FURT ---
Summary of Discharge Discharge Summary of Date Date of Exam: 09/15/19 Admission Date Date of Admission: 09/14/19 Admission Diagnosis Hospital Course: Pt is a 89 y/o m w/ pmhx head and neck cancer, requiring multiple procedures, including a PEG tube placed more than a year ago. He recently had the tube replaced 3 days ago. The patient and family noticed some bleeding through the tube and the patient presented to the ER for further evaluation. During hospital course, no active bleeding or blood was observed from tube. Surgery was consulted for evaluation. The PEG tube was irrigated and there was clear fluid coming back. Patient's hemoglobin was trended and remained stable, 11.5 on day of discharge. Pt was otherwise at baseline and stable on discharge. Instructed to follow up with surgery and pcp in 1 week. Vital Signs: Vital Signs (72 hours) 09/13/19 19:39 09/13/19 23:00 09/14/19 00:35 Temperature 98.2 F 97.9 F Pulse Rate 86 Pulse Rate [Left Brachial] 80 89 Respiratory Rate 22 20 20 Blood Pressure 157/80 Blood Pressure [Left Arm] 136/82 180/88 O2 Sat by Pulse Oximetry 98 98 98 09/14/19 01:29 09/14/19 02:29 09/14/19 04:00 Temperature 98 F Pulse Rate Pulse Rate [Left Brachial] 64 Respiratory Rate 20 18 16 Blood Pressure Blood Pressure [Left Arm] 168/72 O2 Sat by Pulse Oximetry 96 09/14/19 08:00 09/14/19 12:00 09/14/19 16:00 Temperature 98.0 F 97.8 F 97.8 F Pulse Rate Pulse Rate [Left Brachial] 67 60 70 Respiratory Rate 18 18 18 Blood Pressure Blood Pressure [Left Arm] 153/68 164/74 134/64 O2 Sat by Pulse Oximetry 98 100 98 09/14/19 20:00 09/14/19 23:43 09/15/19 00:33 Temperature 97.7 F 97.9 F Pulse Rate Pulse Rate [Left Brachial] 65 64 Respiratory Rate 18 16 16 Blood Pressure Blood Pressure [Left Arm] 137/62 163/71 O2 Sat by Pulse Oximetry 99 99 09/15/19 01:33 09/15/19 04:00 Temperature 98.4 F Pulse Rate Pulse Rate [Left Brachial] 74 Respiratory Rate 19 18 Blood Pressure Blood Pressure [Left Arm] 137/66 O2 Sat by Pulse Oximetry 99 Labs: Laboratory Last Values WBC 6.1 X10^3/uL (3.6-10.0) 09/15/19 06:13 RBC 3.43 X10^6/uL (4.7-6.0) L 09/15/19 06:13 Hgb 11.5 g/dL (13.5-18.0) L 09/15/19 06:13 Hct 33.7 % (42.0-54.0) L 09/15/19 06:13 MCV 98.3 fL (80.0-100.0) 09/15/19 06:13 MCH 33.7 pg (27.0-34.0) 09/15/19 06:13 MCHC 34.2 g/dL (33.0-35.0) 09/15/19 06:13 RDW 13.7 % (11.6-16.5) 09/15/19 06:13 Plt Count 134 X10^3/uL (150.0-450.0) L 09/15/19 06:13 MPV 10.1 fL (7.4-11.0) 09/15/19 06:13 Neut % (Auto) 75.5 % (42.0-75.0) H 09/15/19 06:13 Lymph % (Auto) 14.1 % (21.0-51.0) L 09/15/19 06:13 [place] % (Auto) 8.3 % (0.0-13.0) 09/15/19 06:13 Eos % (Auto) 1.4 % (0.9-2.9) 09/15/19 06:13 Baso % (Auto) 0.7 % (0.2-1.0) 09/15/19 06:13 Neut # (Auto) 4.6 x10^3/uL (2.2-4.8) 09/15/19 06:13 Lymph # (Auto) 0.9 X10^3/uL (1.3-2.9) L 09/15/19 06:13 [place] # (Auto) 0.5 x10^3/uL (0.3-0.8) 09/15/19 06:13 Eos # (Auto) 0.1 x10^3/uL (0.0-0.2) 09/15/19 06:13 Baso # (Auto) 0.0 X10^3/uL (0.0-0.1) 09/15/19 06:13 Absolute Nucleated RBC 0.1 /100WBC 09/15/19 06:13 PT 12.5 SECONDS (11.8-14.3) 09/13/19 20:23 INR Target Range - 09/13/19 20: INR 0.97 (0.8-1.3) 09/13/19 20:23 APTT 28.9 SECONDS (22.9-36.5) 09/13/19 20:23 PTT Comment - 09/13/19 20:23 Sodium 141 mmol/L (136-145) 09/15/19 06:07 Corrected Sodium TNP 09/15/19 06:07 Potassium 4.2 mmol/L (3.5-5.1) 09/15/19 06:07 Chloride 108 mmol/L (98-107) H 09/15/19 06:07 Carbon Dioxide 29.5 mmol/L (21-32) 09/15/19 06:07 BUN 13 mg/dL (7-18) 09/15/19 06:07 Creatinine 0.76 mg/dL (0.70-1.30) 09/15/19 06:07 Est GFR (MDRD) Af Amer > 60 (>60) 09/15/19 06:07 Est GFR (MDRD) Non-Af > 60 (>60) 09/15/19 06:07 Glucose 102 mg/dL (65-99) H 09/15/19 06:07 Calcium 8.5 mg/dL (8.5-10.1) 09/15/19 06:07 Corrected Calcium 10.0 mg/dL (8.5-10.1) 09/13/19 20:23 Total Bilirubin 0.80 mg/dL (0.2-1.0) 09/13/19 20:23 AST 42 Units/L (15-37) H 09/13/19 20:23 ALT 58 Units/L (12-78) 09/13/19 20:23 Alkaline Phosphatase 96 Units/L (46-116) 09/13/19 20:23 Total Protein 6.5 g/dL (6.4-8.2) 09/13/19 20:23 Albumin 2.9 g/dL (3.4-5.0) L 09/13/19 20:23 Globulin 3.6 g/dL (2.5-4.5) 09/13/19 20:23 Albumin/Globulin Ratio 0.8 Ratio (1.1-2.1) L 09/13/19 20:23 Amylase 20 Units/L (25-115) L 09/13/19 20:23 Lipase 65 Units/L (73-393) L 09/13/19 20:23 Gastric Fluid pH 3 09/13/19 22:07 Gastric Occult Blood Positive (NEGATIVE) A 09/13/19 22:07 Stool Description Fob tube 09/13/19 21:34 Stl Occult Blood (IFOB) Positive (NEGATIVE) A 09/13/19 21:34 Reason For Visit: GI BLEED, ACUTE, HYPERGLYCEMIA, G-TUBE DYSFUNCTION Discharge Date Discharge Date: 09/15/19 Discharge Diagnosis All Active Problems (Updated 09/14/19 @ 10:58 by Davy Peterson) Thrush, oral (Acute) Dehydration with hypernatremia (Acute) Hypernatremia (Acute) Hypercalcemia (Acute) Hypoalbuminemia due to protein-calorie malnutrition (Acute) Nephrolithiasis (Acute) Drug-induced hyperkalemia (Acute) Dehydration, mild (Acute) Acute GI bleeding (Acute) Hyperglycemia (Acute) Plan of Treatment: Continue with present treatment and follow up plan. Pt is to keep follow up appointment as instructed and take medications as ordered. Discharge Medications Discharge Medications: diphenhydramine [From Benadryl] Allergy (Verified 01/12/19 18:55) ketorolac [From Toradol] Allergy (Verified 01/13/19 13:58) lorazepam [From Ativan] Allergy (Verified 01/13/19 13:58) morphine Allergy (Verified 01/12/19 18:55) Penicillins Allergy (Verified 01/12/19 18:55) CONTINUE taking the following medications levothyroxine [Synthroid] 100 mcg FEEDING TUBE DAILY 09/13/19 [History] nystatin 100,000 unit BUCCAL DAILY 09/13/19 [History] Follow up and Referral Follow Up: 1 Week Discharge Disposition Discharge Disposition: Home Discharge Condition: Stable
[2019-09-15 11:59] VITALS: BP 163/68
== END 2019-09-15 12:55 | disposition home or self-care (01) ==
LOC: ER 19:37 → MED/SURG 19:37
PROVIDERS: ADMIT Family Medicine; ATTEND Family Medicine
DX: B37.0 Candidal stomatitis; K92.2 Gastrointestinal hemorrhage, unspecified; C14.0 Malignant neoplasm of pharynx, unspecified; E88.09 Other disorders of plasma-protein metabolism, not elsewhere classified; K21.9 Gastro-esophageal reflux disease without esophagitis; K94.23 Gastrostomy malfunction; R26.89 Other abnormalities of gait and mobility; E03.8 Other specified hypothyroidism; F41.8 Other specified anxiety disorders
CPT/HCPCS: 36415; 74000; 74018; 80048; 80053; 82150; 82270; 82271; 83690; 85025; 85610; 85730; 96360; 96361; 96365; 96374; 97162; 99284; A4216; A4222; C9113; G0378

== ENCOUNTER 2019-09-25 13:32 | Observation (INO) ==
[2019-09-25 13:52] VITALS: BMI 22.4
[2019-09-25] MEDS ORDERED: D5 1/2 NS 1000 ML 1,000 ML IV ONE (14:15)
[2019-09-25 14:33] LABS: BASOPHILS # (AUTO) 0.1 X10^3/uL (0.0-0.1); BASOPHILS % (AUTO) 0.7 % (0.2-1.0); EOSINOPHILS # (AUTO) 0.1 x10^3/uL (0.0-0.2); HEMATOCRIT 39.3 % (42.0-54.0); HEMOGLOBIN 13.1 g/dL (13.5-18.0); LYMPHOCYTES # (AUTO) 0.9 X10^3/uL (1.3-2.9); LYMPHOCYTES % (AUTO) 10.8 % (21.0-51.0); MEAN CORPUSCULAR HEMOGLOBIN 32.6 pg (27.0-34.0); MEAN CORPUSCULAR HGB CONC 33.4 g/dL (33.0-35.0); MEAN CORPUSCULAR VOLUME 97.7 fL (80.0-100.0); MEAN PLATELET VOLUME 8.9 fL (7.4-11.0); MONOCYTES # (AUTO) 0.4 x10^3/uL (0.3-0.8); MONOCYTES % (AUTO) 4.9 % (0.0-13.0); NEUTROPHILS # (AUTO) 6.8 x10^3/uL (2.2-4.8); NEUTROPHILS % (AUTO) 82.6 % (42.0-75.0); PLATELET COUNT 184 X10^3/uL (150.0-450.0); RED BLOOD COUNT 4.02 X10^6/uL (4.7-6.0); RED CELL DISTRIBUTION WIDTH 13.9 % (11.6-16.5); WHITE BLOOD COUNT 8.2 X10^3/uL (3.6-10.0)
--- NOTE | 2019-09-25 14:38 | DR.GIBLEED ---
HPI Time Seen Time Seen by Provider: 09/25/19 13:47 Primary Care Physician Primary Care Physician: EMERALD Harris Chief Complaint Doctors Comments: An 89 y/o male brought in for recurrence of bleeding. Bright red blood noted via his GT at about 1245 hrs. today. This was upon checking his residual prior to administering his feedings. He was here a week ago with similar presentation. He had an EGD done upon admission that revealed a Gastric Ulcer. Chief Complaint:: [facility] CALLED OUT TO PATIENT. [facility] CALLED 911, PT HAD 5 CC OF BLOOD PULLED FROM NGT. PT WAS RELEASED FROM [facility] 1 WEEK AGO. PT HAS HAD NGT 8 YEARS NOW. NO ACTIVE BLEEDING NOTED AT THIS TIME. Self Treatment fo Chief Complaint: HOME HEALTH NURSE CALLED EMS Reviewed Nurses Notes Reviewed: Yes Source History Provided: Patient, Family Member and EMS Mode of Arrival Mode of Arrival: EMS Timing Onset of Chief Complaint: 09/25/19 Quality Vomitus: None Stools: None Context Onset: Other (checking residual in GT) Associated Signs and Symptoms Associated Signs and Symptoms: denies Chest Pain, Abdominal Pain, Diarrhea, Epistaxis, Menorrhagia (female) and Faintness PMH PMH Past Medical History: Yes Past Medical History: Anemia, Anxiety, GERD, Hypertension, Hypothyroidism, Kidney Stones and PUD Past Medical History Comment: CIRHOSIS OF THE LIVER, DYSPHAGIA, 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, NEOPLASM OF LARYNX , VENOUS INSUFFICIENCY Past Surgical History: Yes Surgical History: Ortho Surgery and Other Past Surgical History Comment: THROAT CANCER HERNIA Family History History of Family Medical Conditions: Yes Family Medical History: Cancer and Hypertension Social History Does any household member use tobacco: No Alcohol Use: None Do you use any recreational Drugs:: No Lives With: Family Lives Where: Home Travel Risk Conronavirus risk: Travel to [facility] or contact with high risk person(s).: No Has patient experienced Coronavirus symptoms: No Infectious screening In the last 2 months have you had wt loss of >10#?: NO Have you had fever, night sweats or hemotysis?: No Have you traveled outside the country in the last 6 months?: No Isolation: Standard ROS Review of Systems Constitutional: No Symptoms Reported Eyes: No Symptoms Reported ENTM: No Symptoms Reported Respiratoy: No Symptoms Reported Cardiovascular: No Symptoms Reported Gastrointestinal/Abdominal: Other (G.I bleed) Genitourinary: No Symptoms Reported Neurological: No Symptoms Reported Musculoskeletal: No Symptoms Reported Integumentary: No Symptoms Reported Hematologic/Lymphatic: No Symptoms Reported Endocrine: No Symptoms Reported Psychiatric: No Symptoms Reported All Other Systems: Reviewed and Negative PE Vital Signs Vitals: Temperature 97.1 F Pulse Rate 82 Respiratory Rate 20 Blood Pressure [Right Arm] 123/52 Blood Pressure 158/82 O2 Sat by Pulse Oximetry 93 General Limitations: No Limitations General Appearance: Alert and In No Apparent Distress Head Head Exam: Normal Inspection, Atraumatic and Normocephalic Eyes Eye exam: Normal Appearance and EOMI ENT ENT Exam: Normal Exam, Normal Oropharynx, Normal External Ear Exam and Mucous Membranes Moist Neck Neck Exam: Normal Inspection, Full ROM and Trachea Midline Chest Chest Inspection: Normal Inspection Respiratory Respiratory Exam: Normal Lung Sounds Bilat Cardiovascular Cardiovascular Exam: Regular Rate, Normal Rhythm, Normal Heart Sounds, +S1 and +S2 Abdominal Exam Abdominal Exam: Normal Bowel Sounds, Soft and Other (GT is noted in epigastrium) Abdominal Tenderness: negative RUQ, RLQ, LUQ, LLQ, Epigastrium, Suprapubic, Diffuse, Mild, Moderate and Severe Rectal Rectal Exam: Deferred Extremities Extremities Exam: Normal Inspection and Full ROM Back Back Exam: Normal Inspection and Full ROM Neurologic Neurological Exam: Alert and Oriented X3 Psychiatric Psychiatric Exam: Normal Affect and Normal Mood Skin Skin Exam: Dry and Intact COURSE Reevaluation 1st: Unchanged Education/Counseling Education/Counseling: Patient, Family, Education and Counseling Educated On: Treatment, Diagnosis, Prognosis and Needs for Follow Up ROR Labs Reviewed Result Diagrams: 09/25/19 14:20 09/25/19 14:20 Laboratory: WBC 8.2 X10^3/uL (3.6-10.0) 09/25/19 14:20 RBC 4.02 X10^6/uL (4.7-6.0) L 09/25/19 14:20 Hgb 13.1 g/dL (13.5-18.0) L 09/25/19 14:20 Hct 39.3 % (42.0-54.0) L 09/25/19 14:20 MCV 97.7 fL (80.0-100.0) 09/25/19 14:20 MCH 32.6 pg (27.0-34.0) 09/25/19 14:20 MCHC 33.4 g/dL (33.0-35.0) 09/25/19 14:20 RDW 13.9 % (11.6-16.5) 09/25/19 14:20 Plt Count 184 X10^3/uL (150.0-450.0) 09/25/19 14:20 MPV 8.9 fL (7.4-11.0) 09/25/19 14:20 Neut % (Auto) 82.6 % (42.0-75.0) H 09/25/19 14:20 Lymph % (Auto) 10.8 % (21.0-51.0) L 09/25/19 14:20 [place] % (Auto) 4.9 % (0.0-13.0) 09/25/19 14:20 Eos % (Auto) 1.0 % (0.9-2.9) 09/25/19 14:20 Baso % (Auto) 0.7 % (0.2-1.0) 09/25/19 14:20 Neut # (Auto) 6.8 x10^3/uL (2.2-4.8) H 09/25/19 14:20 Lymph # (Auto) 0.9 X10^3/uL (1.3-2.9) L 09/25/19 14:20 [place] # (Auto) 0.4 x10^3/uL (0.3-0.8) 09/25/19 14:20 Eos # (Auto) 0.1 x10^3/uL (0.0-0.2) 09/25/19 14:20 Baso # (Auto) 0.1 X10^3/uL (0.0-0.1) 09/25/19 14:20 Absolute Nucleated RBC 0.1 /100WBC 09/25/19 14:20 Sodium 139 mmol/L (136-145) 09/25/19 14:20 Corrected Sodium TNP 09/25/19 14:20 Potassium 4.3 mmol/L (3.5-5.1) 09/25/19 14:20 Chloride 102 mmol/L (98-107) 09/25/19 14:20 Carbon Dioxide 35.0 mmol/L (21-32) H 09/25/19 14:20 BUN 19 mg/dL (7-18) H 09/25/19 14:20 Creatinine 0.89 mg/dL (0.70-1.30) 09/25/19 14:20 Est GFR (MDRD) Af Amer > 60 (>60) 09/25/19 14:20 Est GFR (MDRD) Non-Af > 60 (>60) 09/25/19 14:20 Glucose 105 mg/dL (65-99) H 09/25/19 14:20 Calcium 9.6 mg/dL (8.5-10.1) 09/25/19 14:20 Corrected Calcium 10.2 mg/dL (8.5-10.1) H 09/25/19 14:20 Total Bilirubin 0.60 mg/dL (0.2-1.0) 09/25/19 14:20 AST 32 Units/L (15-37) 09/25/19 14:20 ALT 37 Units/L (12-78) 09/25/19 14:20 Alkaline Phosphatase 96 Units/L (46-116) 09/25/19 14:20 Total Protein 6.9 g/dL (6.4-8.2) 09/25/19 14:20 Albumin 3.2 g/dL (3.4-5.0) L 09/25/19 14:20 Globulin 3.7 g/dL (2.5-4.5) 09/25/19 14:20 Albumin/Globulin Ratio 0.9 Ratio (1.1-2.1) L 09/25/19 14:20 Opioid Opioid Risk Tool Age (Feng box if 16-45): No History of Preadolescent Sexual Abuse: No Total: 0 Total Score Risk Category: Low Risk Copyright: Melissa predicting aberrant behaviors Diagnosis Discharge Problem: Gastrointestinal bleeding, upper Gastric ulcer Qualifiers: Gastric ulcer chronicity: acute Gastric ulcer complication status: with he ww [facility] [place] Qualified Code(s): K25.0 - Acute gastric ulcer with hemorrhage ADDITIONAL NOTES Additional Notes Additional Notes: The GT was flushed with 20 ml of free water. No resistance to flow and aspiration of fluid was normal also. The aspirant was noted with specks of blood clots.
[2019-09-25] MEDS: D5 1/2 NS 1000 ML 1,000 ML IV SCH (14:43)
[2019-09-25 14:45] LABS: ALANINE AMINOTRANSFERASE 37 Units/L (12-78); ALBUMIN 3.2 g/dL (3.4-5.0); ALKALINE PHOSPHATASE 96 Units/L (46-116); ASPARTATE AMINO TRANSFERASE 32 Units/L (15-37); BLOOD UREA NITROGEN 19 mg/dL (7-18); CALCIUM 9.6 mg/dL (8.5-10.1); CHLORIDE 102 mmol/L (98-107); COR CA(FOR HYPOALB) 10.2 mg/dL (8.5-10.1); CREATININE 0.89 mg/dL (0.70-1.30); SODIUM 139 mmol/L (136-145); TOTAL PROTEIN 6.9 g/dL (6.4-8.2); eGFR NON BLACK RACES > 60 (>60)
[2019-09-25] MEDS: SYNTHROID 100 mcg TAB PEG SCH (16:59)
[2019-09-25] MEDS: PriLOSEC PO SCH (21:12)
[2019-09-25] MEDS: CARAFATE ORAL SUSP PO SCH (21:13)
[2019-09-25] MEDS: NYSTATIN SUSP PEG SCH (21:13)
[2019-09-26] MEDS: ULTRAM PO PRN (00:20)
[2019-09-26] MEDS ORDERED: ULTRAM ONE (00:20)
[2019-09-26] MEDS: D5 1/2 NS 1000 ML 1,000 ML IV SCH ×2 (04:18→18:26)
[2019-09-26] MEDS: NYSTATIN SUSP PEG SCH ×3 (05:05→20:47)
[2019-09-26] MEDS: CARAFATE ORAL SUSP PO SCH ×3 (05:05→20:45)
[2019-09-26 05:19] LABS: BASOPHILS # (AUTO) 0.1 X10^3/uL (0.0-0.1); BASOPHILS % (AUTO) 0.7 % (0.2-1.0); EOSINOPHILS # (AUTO) 0.1 x10^3/uL (0.0-0.2); HEMATOCRIT 35.3 % (42.0-54.0); HEMOGLOBIN 11.9 g/dL (13.5-18.0); LYMPHOCYTES # (AUTO) 1.1 X10^3/uL (1.3-2.9); LYMPHOCYTES % (AUTO) 13.8 % (21.0-51.0); MEAN CORPUSCULAR HEMOGLOBIN 32.7 pg (27.0-34.0); MEAN CORPUSCULAR HGB CONC 33.8 g/dL (33.0-35.0); MEAN CORPUSCULAR VOLUME 96.8 fL (80.0-100.0); MEAN PLATELET VOLUME 8.7 fL (7.4-11.0); MONOCYTES # (AUTO) 0.6 x10^3/uL (0.3-0.8); MONOCYTES % (AUTO) 7.4 % (0.0-13.0); NEUTROPHILS # (AUTO) 5.9 x10^3/uL (2.2-4.8); NEUTROPHILS % (AUTO) 77.1 % (42.0-75.0); PLATELET COUNT 175 X10^3/uL (150.0-450.0); RED BLOOD COUNT 3.64 X10^6/uL (4.7-6.0); RED CELL DISTRIBUTION WIDTH 13.8 % (11.6-16.5); WHITE BLOOD COUNT 7.7 X10^3/uL (3.6-10.0)
[2019-09-26 05:36] LABS: ALANINE AMINOTRANSFERASE 30 Units/L (12-78); ALBUMIN 2.6 g/dL (3.4-5.0); ALKALINE PHOSPHATASE 82 Units/L (46-116); ASPARTATE AMINO TRANSFERASE 26 Units/L (15-37); BLOOD UREA NITROGEN 18 mg/dL (7-18); CARBON DIOXIDE 33.9 mmol/L (21-32); CHLORIDE 104 mmol/L (98-107); COR CA(FOR HYPOALB) 10.1 mg/dL (8.5-10.1); SODIUM 142 mmol/L (136-145); eGFR NON BLACK RACES > 60 (>60)
[2019-09-26] MEDS: CHRONULAC PO SCH (10:39)
[2019-09-26] MEDS: PriLOSEC PO SCH ×2 (10:39→20:45)
--- NOTE | 2019-09-26 10:39 | DR.PROGNOT ---
Hospital Progress Notes - Progress Note for Day of: Progress Note Date: 09/26/19 - Chief Complaint Chief Complaint: no abdominal pain today . no further active bleeding noted in the PEG tube . H&H stable .11.9 - Past Medical Family Social History Past Med/Fam/Surg Hx: No changes since H&P Allergies: Allergies alprazolam [From Xanax] Allergy (Verified 09/25/19 13:57) diphenhydramine [From Benadryl] Allergy (Verified 09/25/19 13:57) ketorolac [From Toradol] Allergy (Verified 09/25/19 13:57) lorazepam [From Ativan] Allergy (Verified 09/25/19 13:57) morphine Allergy (Verified 09/25/19 13:57) Penicillins Allergy (Verified 09/25/19 13:57) - Review Of Systems ROS: No change since H&P - Vital Signs Vital Signs: Temperature 97.8 F Pulse Rate [Right Brachial] 66 Pulse Rate 82 Respiratory Rate 18 Blood Pressure [Left Arm] 146/67 Blood Pressure [Right Arm] 153/70 Blood Pressure 158/82 O2 Sat by Pulse Oximetry 97 - Physical Exam Oriented: Normal Eyes: Normal Ear: Normal Nose: Normal Throat: Normal Respiratory: Normal Cardiovascular: Normal : Normal GI:Auscultation: Normal GI:Palpation: Normal GI: Tenderness: Normal, Other (soft , flat abdomen , BS+ .. PEG tube was irrigated with water wit clear return .) Speech Pattern: Clear, Appropriate - Laboratory and Diagnostics Result Diagrams: 09/26/19 04:47 09/26/19 04:47 Labs: Laboratory WBC 7.7 X10^3/uL (3.6-10.0) 09/26/19 04:47 RBC 3.64 X10^6/uL (4.7-6.0) L 09/26/19 04:47 Hgb 11.9 g/dL (13.5-18.0) L 09/26/19 04:47 Hct 35.3 % (42.0-54.0) L 09/26/19 04:47 MCV 96.8 fL (80.0-100.0) 09/26/19 04:47 MCH 32.7 pg (27.0-34.0) 09/26/19 04:47 MCHC 33.8 g/dL (33.0-35.0) 09/26/19 04:47 RDW 13.8 % (11.6-16.5) 09/26/19 04:47 Plt Count 175 X10^3/uL (150.0-450.0) 09/26/19 04:47 MPV 8.7 fL (7.4-11.0) 09/26/19 04:47 Neut % (Auto) 77.1 % (42.0-75.0) H 09/26/19 04:47 Lymph % (Auto) 13.8 % (21.0-51.0) L 09/26/19 04:47 [place] % (Auto) 7.4 % (0.0-13.0) 09/26/19 04:47 Eos % (Auto) 1.0 % (0.9-2.9) 09/26/19 04:47 Baso % (Auto) 0.7 % (0.2-1.0) 09/26/19 04:47 Neut # (Auto) 5.9 x10^3/uL (2.2-4.8) H 09/26/19 04:47 Lymph # (Auto) 1.1 X10^3/uL (1.3-2.9) L 09/26/19 04:47 [place] # (Auto) 0.6 x10^3/uL (0.3-0.8) 09/26/19 04:47 Eos # (Auto) 0.1 x10^3/uL (0.0-0.2) 09/26/19 04:47 Baso # (Auto) 0.1 X10^3/uL (0.0-0.1) 09/26/19 04:47 Absolute Nucleated RBC 0.0 /100WBC 09/26/19 04:47 Sodium 142 mmol/L (136-145) 09/26/19 04:47 Corrected Sodium TNP 09/26/19 04:47 Potassium 3.8 mmol/L (3.5-5.1) 09/26/19 04:47 Chloride 104 mmol/L (98-107) 09/26/19 04:47 Carbon Dioxide 33.9 mmol/L (21-32) H 09/26/19 04:47 BUN 18 mg/dL (7-18) 09/26/19 04:47 Creatinine 0.80 mg/dL (0.70-1.30) 09/26/19 04:47 Est GFR (MDRD) Af Amer > 60 (>60) 09/26/19 04:47 Est GFR (MDRD) Non-Af > 60 (>60) 09/26/19 04:47 Glucose 101 mg/dL (65-99) H 09/26/19 04:47 Calcium 9.0 mg/dL (8.5-10.1) 09/26/19 04:47 Corrected Calcium 10.1 mg/dL (8.5-10.1) 09/26/19 04:47 Magnesium 2.2 mg/dL (1.7-2.9) 09/26/19 04:47 Total Bilirubin 0.50 mg/dL (0.2-1.0) 09/26/19 04:47 AST 26 Units/L (15-37) 09/26/19 04:47 ALT 30 Units/L (12-78) 09/26/19 04:47 Alkaline Phosphatase 82 Units/L (46-116) 09/26/19 04:47 Total Protein 6.0 g/dL (6.4-8.2) L 09/26/19 04:47 Albumin 2.6 g/dL (3.4-5.0) L 09/26/19 04:47 Globulin 3.4 g/dL (2.5-4.5) 09/26/19 04:47 Albumin/Globulin Ratio 0.8 Ratio (1.1-2.1) L 09/26/19 04:47 - Assessment and Plan 1: recurrent bleeding gastric ulcer . feeding tube dependent .( s/p throat Ca ). no need for endoscopy now . to advance diet and reprat lab work , possible D/C in am - Problem Patient Problems: Patient Problems Gastrointestinal bleeding, upper (Acute) K92.2 Gastric ulcer (Acute) K25.9
[2019-09-26] MEDS: SYNTHROID 100 mcg TAB PEG SCH (16:05)
[2019-09-27] MEDS: ULTRAM PO PRN (00:52)
[2019-09-27 06:05] LABS: BASOPHILS # (AUTO) 0.1 X10^3/uL (0.0-0.1); BASOPHILS % (AUTO) 1.1 % (0.2-1.0); EOSINOPHILS # (AUTO) 0.1 x10^3/uL (0.0-0.2); EOSINOPHILS % (AUTO) 1.5 % (0.9-2.9); HEMATOCRIT 33.8 % (42.0-54.0); HEMOGLOBIN 11.7 g/dL (13.5-18.0); LYMPHOCYTES % (AUTO) 14.3 % (21.0-51.0); MEAN CORPUSCULAR HEMOGLOBIN 33.2 pg (27.0-34.0); MEAN CORPUSCULAR HGB CONC 34.5 g/dL (33.0-35.0); MEAN CORPUSCULAR VOLUME 96.2 fL (80.0-100.0); MEAN PLATELET VOLUME 9.7 fL (7.4-11.0); MONOCYTES # (AUTO) 0.5 x10^3/uL (0.3-0.8); MONOCYTES % (AUTO) 7.4 % (0.0-13.0); NEUTROPHILS # (AUTO) 5.2 x10^3/uL (2.2-4.8); NEUTROPHILS % (AUTO) 75.7 % (42.0-75.0); PLATELET COUNT 160 X10^3/uL (150.0-450.0); RED BLOOD COUNT 3.51 X10^6/uL (4.7-6.0); WHITE BLOOD COUNT 6.8 X10^3/uL (3.6-10.0)
[2019-09-27 06:18] LABS: ALANINE AMINOTRANSFERASE 27 Units/L (12-78); ALBUMIN 2.5 g/dL (3.4-5.0); ALKALINE PHOSPHATASE 70 Units/L (46-116); ASPARTATE AMINO TRANSFERASE 29 Units/L (15-37); BLOOD UREA NITROGEN 15 mg/dL (7-18); CALCIUM 8.9 mg/dL (8.5-10.1); CARBON DIOXIDE 32.2 mmol/L (21-32); CHLORIDE 106 mmol/L (98-107); COR CA(FOR HYPOALB) 10.1 mg/dL (8.5-10.1); CREATININE 0.78 mg/dL (0.70-1.30); SODIUM 142 mmol/L (136-145); TOTAL PROTEIN 5.8 g/dL (6.4-8.2); eGFR NON BLACK RACES > 60 (>60)
[2019-09-27] MEDS: CARAFATE ORAL SUSP PO SCH (06:36)
[2019-09-27] MEDS: NYSTATIN SUSP PEG SCH (06:37)
[2019-09-27] MEDS: D5 1/2 NS 1000 ML 1,000 ML IV SCH (06:37)
[2019-09-27] MEDS: CHRONULAC PO SCH (09:24)
[2019-09-27] MEDS: PriLOSEC PO SCH ×2 (09:24→09:25)
[2019-09-27 09:45] VITALS: BP 143/63
== END 2019-09-27 10:10 | disposition home health service (06) ==
LOC: MED/SURG 13:32 → ER 13:32 → MED/SURG 15:50
PROVIDERS: ADMIT Surgery; ATTEND Surgery
DX: R26.89 Other abnormalities of gait and mobility; I10 Essential (primary) hypertension; Z93.1 Gastrostomy status; K25.0 Acute gastric ulcer with hemorrhage; Z79.899 Other long term (current) drug therapy; Z85.819 Personal history of malignant neoplasm of unspecified site of lip, oral cavity, and pharynx
CPT/HCPCS: 36415; 80053; 83735; 85025; 96360; 96361; 96365; 97162; 97166; 97530; 99284; A4222; G0378; S5010

== ENCOUNTER 2020-11-10 19:05 | Inpatient (IN) ==
[2020-11-10] MEDS ORDERED: LEVAQUIN PREMIX IV 500 MG 500 MG/100 ML BAG IV ONE ×2 (19:43→19:53)
[2020-11-10] MEDS ORDERED: NS 1000 ML 1,000 ML IV STA (19:43)
[2020-11-10] MEDS ORDERED: NS 1000 ML 1,000 ML ONE (19:53)
[2020-11-10 20:19] LABS: BASOPHILS # (AUTO) 0.1 X10^3/uL (0.0-0.1); BASOPHILS % (AUTO) 0.4 % (0.2-1.0); EOSINOPHILS # (AUTO) 0.2 x10^3/uL (0.0-0.2); HEMATOCRIT 40.9 % (42.0-54.0); HEMOGLOBIN 13.6 g/dL (13.5-18.0); LYMPHOCYTES # (AUTO) 0.4 X10^3/uL (1.3-2.9); MEAN CORPUSCULAR HEMOGLOBIN 32.2 pg (27.0-34.0); MEAN CORPUSCULAR HGB CONC 33.4 g/dL (33.0-35.0); MEAN CORPUSCULAR VOLUME 96.4 fL (80.0-100.0); MEAN PLATELET VOLUME 8.7 fL (7.4-11.0); MONOCYTES # (AUTO) 0.3 x10^3/uL (0.3-0.8); MONOCYTES % (AUTO) 1.6 % (0.0-13.0); NEUTROPHILS # (AUTO) 19.8 x10^3/uL (2.2-4.8); PLATELET COUNT 215 X10^3/uL (150.0-450.0); RED BLOOD COUNT 4.24 X10^6/uL (4.7-6.0); RED CELL DISTRIBUTION WIDTH 13.2 % (11.6-16.5); WHITE BLOOD COUNT 20.9 X10^3/uL (3.6-10.0)
--- NOTE | 2020-11-10 20:19 | DR.ABDMALE ---
HPI Time seen Time Seen by Provider: 11/10/20 19:43 PCP Primary Care Physician: tyler HPI comment HPI Comment: PATIENT WITH A HISTORY THROAT CARCINOMA HAS FINISHED A COURSE OF RADIATION THERAPY, HAS PEG TUBE FEEDINGS, COMPLAINS OF A PRODUCTIVE COUGH WHITE SPUTUM AND CHRONIC DYSPNEA ASSOCIATED WITH LOWER ABDOMINAL PAIN. DENIES CHEST PAIN, FEVER AND CHILLS. Complaint Chief Complaint Doctors Comments: PRODUCTIVE COUGH, ABDOMINAL PAIN Chief Complaint:: pt c/o being sob for a few days and pt states" I feel like i get full of air when i stand up" COVID-19 Coronavirus risk:travel/contact w/high risk person: No Has patient experienced Coronavirus symptoms: No Mode of arrival Mode of Arrival: Wheelchair Timing Onset of Chief Complaint: 11/07/20 Duration How lon Duration: Days Quality Quality: Cramping Context History of: Abdominal surgery and Urolithiasis (KIDNEY STONES) Modifying factors Worsening Factors: Exertion PMH PMH Past Medical History: Yes Past Medical History: Anemia, Anxiety, GERD, Hypertension, Hypothyroidism, Kidney Stones and PUD Past Surgical History: Yes Surgical History: Ortho Surgery and Thyroidectomy Past Surgical History Comment: g-tube Family History History of Family Medical Conditions: Yes Family Medical History: Cancer and Hypertension Social History Does patient currently use any type of tobacco product: No Have you used tobacco products in the last 12 months: No Type of Tobacco Use: None Does any household member use tobacco: No Alcohol Use: None Do you use any recreational Drugs:: No Lives With: Family Lives Where: Home Travel Risk Coronavirus risk:travel/contact w/high risk person: No Has patient experienced Coronavirus symptoms: No Infectious screening In the last 2 months have you had wt loss of >10#?: NO Have you had fever, night sweats or hemotysis?: No Have you traveled outside the country in the last 6 months?: No Isolation: Standard ROS Review of Systems Constitutional: No Symptoms Reported Eyes: No Symptoms Reported ENTM: No Symptoms Reported Respiratoy: Productive Cough Cardiovascular: No Symptoms Reported Gastrointestinal/Abdominal: Abdominal Pain Genitourinary: No Symptoms Reported Neurological: No Symptoms Reported Musculoskeletal: No Symptoms Reported Integumentary: No Symptoms Reported Hematologic/Lymphatic: No Symptoms Reported Endocrine: No Symptoms Reported Psychiatric: No Symptoms Reported All Other Systems: Reviewed and Negative PE Vital Signs Vital Signs: Temp Pulse Resp BP BP BP Pulse Ox 11/10/20 19:31 114 H 139/72 93 L 11/10/20 19:11 123 H 145/66 90 L 11/10/20 19:07 98.6 F 113 H 22 145/66 92 L 03/13/20 11:12 108/57 09/27/19 08:00 143/63 09/25/19 20:00 146/67 09/20/19 04:00 132/60 02/01/19 20:48 164/78 01/18/19 08:00 124/58 General Limitations: No Limitations Head Head Exam: Normal Inspection and Atraumatic Eyes Eye exam: Normal Appearance and PERRL ENT ENT Exam: Normal Exam and Normal Oropharynx Neck Neck Exam: Normal Inspection and Full ROM Chest Chest Inspection: Normal Inspection Respiratory Respiratory Exam: Bilateral: Clear to Auscultation Cardiovascular Cardiovascular Exam: Regular Rate and Normal Rhythm Abdominal Exam Abdominal Exam: Normal Inspection, Normal Bowel Sounds, Soft and Tenderness (SUPRAPUBIC TENDERNESS) Back Back Exam: Normal Inspection and Full ROM Extremeties Extremities Exam: Normal Inspection and Full ROM Exam: Male: Normal Inspection Neurologic Neurological Exam: Alert and Oriented X3 MDM Differential Diagnosis Differential Diagnosis: Gastroenteritis, Urinary tract infection and Urolithiasis Other differential diagnosis: ACUTE COLITIS COURSE Treatment Treatment: IV NORMAL SALINE 200ML/HR, AFTER 2 SETS OF BLOOD CULTURES LEVAQUIN 500MG IVPB Consultation Call Returned: 23:25 Consultation Comments: DISCUSSED FINDINGS WITH DR DE AT 2335 FOR ADMIT ROR Labs Reviewed Laboratory Results Reviewed?: Yes Result Diagrams: 11/10/20 19:58 11/10/20 19:58 Laboratory: WBC 20.9 X10^3/uL (3.6-10.0) H 11/10/20 19:58 RBC 4.24 X10^6/uL (4.7-6.0) L 11/10/20 19:58 Hgb 13.6 g/dL (13.5-18.0) 11/10/20 19:58 Hct 40.9 % (42.0-54.0) L 11/10/20 19:58 MCV 96.4 fL (80.0-100.0) 11/10/20 19:58 MCH 32.2 pg (27.0-34.0) 11/10/20 19:58 MCHC 33.4 g/dL (33.0-35.0) 11/10/20 19:58 RDW 13.2 % (11.6-16.5) 11/10/20 19:58 Plt Count 215 X10^3/uL (150.0-450.0) 11/10/20 19:58 Plt Count Comment Adequate (ADEQUATE) 11/10/20 19:58 MPV 8.7 fL (7.4-11.0) 11/10/20 19:58 Neut % (Auto) 95.0 % (42.0-75.0) H 11/10/20 19:58 Lymph % (Auto) 2.0 % (21.0-51.0) L 11/10/20 19:58 [place] % (Auto) 1.6 % (0.0-13.0) 11/10/20 19:58 Eos % (Auto) 1.0 % (0.9-2.9) 11/10/20 19:58 Baso % (Auto) 0.4 % (0.2-1.0) 11/10/20 19:58 Neut # (Auto) 19.8 x10^3/uL (2.2-4.8) H 11/10/20 19:58 Lymph # (Auto) 0.4 X10^3/uL (1.3-2.9) L 11/10/20 19:58 [place] # (Auto) 0.3 x10^3/uL (0.3-0.8) 11/10/20 19:58 Eos # (Auto) 0.2 x10^3/uL (0.0-0.2) 11/10/20 19:58 Baso # (Auto) 0.1 X10^3/uL (0.0-0.1) 11/10/20 19:58 Absolute Nucleated RBC 0.0 /100WBC 11/10/20 19:58 Total Counted 100 11/10/20 19:58 Neutrophils % (Manual) 90 % (39-76) H 11/10/20 19:58 Band Neutrophils % 3 % (0-10) 11/10/20 19:58 Lymphocytes % (Manual) 4 % (13-43) L 11/10/20 19:58 Monocytes % (Manual) 3 % (4-9) L 11/10/20 19:58 Plt Morphology Comment Normal (NORMAL) 11/10/20 19:58 RBC Morphology Normal (NORMAL) 11/10/20 19:58 Sodium 142 mmol/L (136-145) 11/10/20 19:58 Corrected Sodium 142 mmol/L (136-145) 11/10/20 19:58 Potassium 4.0 mmol/L (3.5-5.1) 11/10/20 19:58 Chloride 103 mmol/L (98-107) 11/10/20 19:58 Carbon Dioxide 33.7 mmol/L (21-32) H 11/10/20 19:58 BUN 24 mg/dL (7-18) H 11/10/20 19:58 Creatinine 0.99 mg/dL (0.70-1.30) 11/10/20 19:58 Est GFR (MDRD) Af Amer > 60 (>60) 11/10/20 19:58 Est GFR (MDRD) Non-Af > 60 (>60) 11/10/20 19:58 Glucose 120 mg/dL (65-99) H 11/10/20 19:58 Calcium 9.5 mg/dL (8.5-10.1) 11/10/20 19:58 Corrected Calcium 10.1 mg/dL (8.5-10.1) 11/10/20 19:58 Total Bilirubin 2.00 mg/dL (0.2-1.0) H 11/10/20 19:58 AST 30 Units/L (15-37) 11/10/20 19:58 ALT 31 Units/L (12-78) 11/10/20 19:58 Alkaline Phosphatase 90 Units/L (46-116) 11/10/20 19:58 Troponin I < 0.02 ng/mL (0-1.5) 11/10/20 19:58 Total Protein 7.0 g/dL (6.4-8.2) 11/10/20 19:58 Albumin 3.2 g/dL (3.4-5.0) L 11/10/20 19:58 Globulin 3.8 g/dL (2.5-4.5) 11/10/20 19:58 Albumin/Globulin Ratio 0.8 Ratio (1.1-2.1) L 11/10/20 19:58 Amylase 23 Units/L (25-115) L 11/10/20 19:58 Lipase 52 Units/L (73-393) L 11/10/20 19:58 Specimen Type Clean catch urine 11/10/20 21:40 Urine Color Yellow (YELLOW) 11/10/20 21:40 Urine Appearance Clear (CLEAR) 11/10/20 21:40 Urine pH 8.0 (5.0 - 8.0) 11/10/20 21:40 Ur Specific [place] 1.015 (1.000-1.030) 11/10/20 21:40 Urine Protein Negative (NEGATIVE) 11/10/20 21:40 Urine Glucose (UA) Negative (NEGATIVE) 11/10/20 21:40 Urine Ketones 1+ (NEGATIVE) 11/10/20 21:40 Urine Occult Blood 1+ (NEGATIVE) 11/10/20 21:40 Urine Nitrite Negative (NEGATIVE) 11/10/20 21:40 Urine Bilirubin Negative (NEGATIVE) 11/10/20 21:40 Urine Urobilinogen Normal (NORMAL) 11/10/20 21:40 Ur Leukocyte Esterase Negative (NEGATIVE) 11/10/20 21:40 Urine RBC 0-2 /HPF (0-3) 11/10/20 21:40 Urine WBC 0-2 /HPF (0-5) 11/10/20 21:40 Ur Squamous Epith Cells Rare /HPF (NEGATIVE) 11/10/20 21:40 Urine Bacteria Negative /HPF (NEGATIVE) 11/10/20 21:40 Ur Culture Indicated? No/not indicated 11/10/20 21:40 SARS-CoV-2 (PCR) Negative (NEGATIVE) 11/10/20 21:45 Influenza Type A (PCR) Negative (NEGATIVE) 11/10/20 21:45 Influenza Type B (PCR) Negative (NEGATIVE) 11/10/20 21:45 RSV (PCR) Negative (NEGATIVE) 11/10/20 21:45 XRAY XRAY Interpreted by: Radiologist (THE ABDOMINAL PELVIC CT WITH INTRAVENOUS CONTRAST CONSISTENT WITH BILAT NONOBSTRUCTING RENAL CALCULI, NO EVIDENCE OF APPENDICITIS, NO FREE AIR, FLUID OR MASS LESIONS, SUGGESTION OF MILD PATCHY LUNG PARYNCHYMAL INFILTRATES WITHIN THE RIGHT MIDDLE LOBE AND BILATERAL LOWER LOBES) X-ray Results: PORTABLE CHEST XRAY CONSISTENT WITH RIGHT INFRAHILAR INFILTRATE EKG Rate: 108 Block: RBBB Opioid Opioid Risk Tool Age (Feng box if 16-45): No History of Preadolescent Sexual Abuse: No Total: 0 Total Score Risk Category: Low Risk Copyright: Shin SANCHES predicting aberrant behaviors Diagnosis Discharge Problem: Pneumonia, Acute dyspnea
[2020-11-10 20:35] LABS: ALANINE AMINOTRANSFERASE 31 Units/L (12-78); ALBUMIN 3.2 g/dL (3.4-5.0); ALKALINE PHOSPHATASE 90 Units/L (46-116); AMYLASE 23 Units/L (25-115); ASPARTATE AMINO TRANSFERASE 30 Units/L (15-37); BLOOD UREA NITROGEN 24 mg/dL (7-18); CALCIUM 9.5 mg/dL (8.5-10.1); CARBON DIOXIDE 33.7 mmol/L (21-32); CHLORIDE 103 mmol/L (98-107); COR CA(FOR HYPOALB) 10.1 mg/dL (8.5-10.1); COR NA(FOR HYPERGLY) 142 mmol/L (136-145); CREATININE 0.99 mg/dL (0.70-1.30); LIPASE 52 Units/L (73-393); SODIUM 142 mmol/L (136-145); eGFR NON BLACK RACES > 60 (>60)
[2020-11-10 20:42] LABS: BAND NEUTROPHILS % 3 % (0-10); PLATELET MORPHOLOGY COMMENT NORMAL (NORMAL)
--- NOTE | 2020-11-10 21:03 | RAD ---
EXAM: CHEST X-RAYHISTORY: Cough. Dyspnea.TECHNIQUE: AP chest x-ray dated November 10, 2020 at 7:54 PM.COMPARISON: CXR dated January 12, 2019.FINDINGS:Note: Exam degraded by patient rotation to the left (stable).There is severe aortic atherosclerosis. The heart size and mediastinum are within normal limits. There is lung parenchymal hyperinflation and hyperlucency in keeping with COPD/centrilobular emphysema. There is mild prominence of the bronchopulmonary markings in the middle and lower lung tobias which may reflect mild compressive atelectasis secondary to centrilobular emphysema and/or mild cardiogenic or noncardiogenic pulmonary edema/congestion/or bronchopneumonia in the appropriate clinical setting (new findings). There is no gross pleural effusion, or pneumothorax seen. The visualized bony structures are within normal limits.IMPRESSION:1. Lung parenchymal hyperinflation and hyperlucency in the upper lung tobias, in keeping with mild COPD/centrilobular emphysema.2. Mild prominence of the bronchopulmonary markings in the middle and lower lung tobias which may reflect mild compressive atelectasis secondary to centrilobular emphysema and/or mild cardiogenic or noncardiogenic pulmonary edema/congestion/or bronchopneumonia in the appropriate clinical setting (new findings).Electronically signed by: Easton Arguelles (November 10, 2020 21:01:38)
[2020-11-10] MEDS ORDERED: NS 100 ML IV 100 ML IV ONE (21:40)
[2020-11-10 21:56] LABS: BILIRUBIN,URINE NEGATIVE (NEGATIVE); BLOOD/HEMOGLOBIN,URINE 1+ (NEGATIVE); GLUCOSE, URINE NEGATIVE (NEGATIVE); KETONES,URINE 1+ (NEGATIVE); LEUKOCYTE ESTERASE ,URINE NEGATIVE (NEGATIVE); NITRITES,URINE NEGATIVE (NEGATIVE); PROTEIN,URINE NEGATIVE (NEGATIVE); UROBILINOGEN,URINE NORMAL (NORMAL)
[2020-11-10 22:16] LABS: APPEARANCE,URINE CLEAR (CLEAR); COLOR,URINE YELLOW (YELLOW)
[2020-11-10 22:17] LABS: BACTERIA,URINE NEGATIVE /HPF (NEGATIVE); RBC,URINE 0-2 /HPF (0-3); SQUAMOUS EPITHELIAL CELL,UR RARE /HPF (NEGATIVE)
--- NOTE | 2020-11-10 22:58 | CT ---
EXAM: CT ABDOMEN AND PELVIS WITH INTRAVENOUS CONTRASTHISTORY: Abdominal pain. Nausea.TECHNIQUE: Spiral axial CT images are obtained through the abdomen and pelvis without the administration of oral contrast and with the administration of intravenous contrast. Additional coronal and sagittal reformatted images are reconstructed.DOSIMETRY: Total DLP 453.9 mGycm; CTDI 4.1 mGyCOMPARISON: None available.FINDINGS:GASTROINTESTINAL TRACT: A percutaneous gastrostomy tube is noted with the distal tip/bulb within the body of the stomach. There is no evidence for bowel herniation, bowel obstruction, colitis or diverticulitis. A normal-appearing appendix is seen.GENITOURINARY SYSTEM: There are multiple bilateral nonobstructing renal calculi noted. Approximately 8.8 mm and approximately 1.1 cm right upper to middle pole renal cysts are noted. The kidneys are otherwise unremarkable. There is no ureteral calculus or stigmata of obstructive uropathy. The urinary bladder, seminal vesicles, prostate gland appear grossly unremarkable for a non-dedicated exam.CT ABDOMEN: Severe aortoiliac atherosclerotic disease, without aneurysm formation or dissection. The liver, spleen, pancreas, adrenal glands, gallbladder and inferior vena cava are within normal limits for a CT scan. There is no intra-abdominal or retroperitoneal lymphadenopathy, free fluid, or free air seen. No abdominal herniation is noted.CT PELVIS: Status post ORIF of the left femoral neck with surgical screws in situ. 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 The visualized bony structures are otherwise within normal limits. No pelvic sidewall or inguinal lymphadenopathy is seen. No inguinal herniation is noted. No free fluid or free air is seen.LUNG BASES: There is suggestion of mild patchy lung parenchymal infiltrates within the right middle lobe and bilateral lower lobes; rule out mild bronchitis for bronchopneumonia. The there is a trace pericardial effusion, measuring 7.4 mm posteriorly.IMPRESSION:1. No gross acute abnormality seen.2. Bilateral nonobstructing renal calculi; no ureteral stone or obstructive uropathy seen bilaterally.3. No evidence for acute appendicitis, bowel herniation/obstruction, colitis or diverticulitis seen.4. No free fluid, free air, mass lesions, or lymphadenopathy seen.5. Suggestion of mild patchy lung parenchymal infiltrates within the right middle lobe and bilateral lower lobes; rule out mild bronchitis for bronchopneumonia.6. Trace pericardial effusion, measuring 7.4 mm posteriorly.7. 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
[2020-11-11] MEDS ORDERED: DUONEB 0.5 MG/3 MG (3 mL) NEB ONE (00:36)
[2020-11-11] MEDS ORDERED: SALINE 3% 15 ML NEB TX NEB ONE (00:42)
[2020-11-11] MEDS ORDERED: SALINE 3% 15 ML NEB TX ONE (00:42)
[2020-11-11] MEDS: DUONEB 0.5 MG/3 MG (3 mL) NEB SCH ×5 (01:49→16:50)
[2020-11-11] MEDS: NS 1000 ML 1,000 ML IV SCH ×3 (02:19→19:34)
[2020-11-11] MEDS: ULTRAM PEG PRN ×2 (02:46→20:36)
[2020-11-11 03:32] VITALS: BMI 20.9
--- NOTE | 2020-11-11 08:58 | DR.H&P ---
H&P History & Physical for Day of: H&P Date: 11/11/20 Chief Complaint Chief Complaint: weakness, abdominal pain and hip pain Allergies Allergies Allergy/AdvReac Type Severity Reaction Status Date / Time alprazolam [From Xanax] Allergy Verified 09/25/19 13:57 diphenhydramine Allergy Verified 09/25/19 13:57 [From Benadryl] ketorolac [From Toradol] Allergy Verified 09/25/19 13:57 lorazepam [From Ativan] Allergy Verified 09/25/19 13:57 morphine Allergy Verified 09/25/19 13:57 Penicillins Allergy Verified 09/25/19 13:57 History of Present Illness History of Present Illness: Mr. Bone is a 89y/o male with a PMH of throat cancer s/p chemo and radiation, PEG tube, GERD presented with weakness, right hip pain and abdominal pain. Patient states he feels a lot of pressure in his abdomen and that makes him harder for him to breathe. He also has cough, no fever or chills. He has also been complaining of right hip. Denies any falls or injuries. Patient ambulates to the bathroom with a walker. Family member also present in the room, states the PEG tube stopper came out and it likely needs to be changed. She stated that Dr. Lutz had put this PEG tube. Patient has had a PEG tube since 2011. He is not able to tolerating anything oral. He has chronic cough and has had aspiration pneumonia in the past. ER work-up - CXR: Mild prominence of the bronchopulmonary markings in the middle and lower lung tobias which may reflect mild compressive atelectasis secondary to centrilobular emphysema and/or mild cardiogenic or noncardiogenic pulmonary edema/congestion/or bronchopneumonia - CTAP: no acute abdominal process, no obstruction. Bilateral bronchopneumonia. - Labs: COVID19 (-) WBC : 20.9 Patient was started on gentle hydration, IV levaquin and duonebs. Plan: Patient is currently on 2L NC, he is doing well. He states his breathing is fine. He still has some cough. Continue IV Levaquin and duonebs. Will Add clindamycin for anaerobic coverage due to aspiration pneumonia. Add IS. Wean O2 as tolerated to keep sats >92%. Consult for Dr. Lutz pending. Resume home medications. Continue gentle hydration. Monitor AM labs and imaging. Past Medical History Past Medical History: Anemia, Anxiety, GERD, Hypertension, Hypothyroidism, Kidney Stones and PUD Additional Medical History: LARYNX CANCER, CARDIAC ARRHYTHMIA, GERD, HX KIDNEY STONES Past Surgical History Surgical History: Ortho Surgery Additional Surgical History: HERNIA REPAIR, RIGHT KNEE REPLACEMENT, RADICAL NECK SURGERY D/T THROAT CANCER Family History Family Medical History: Hypertension Social History Does patient currently use any type of tobacco product: No Have you used tobacco products in the last 12 months: No Type of Tobacco Use: Smokeless Does any household member use tobacco: No Alcohol Use: None Drug Use: None Prescription drug monitoring program results: PDMP reviewed and no concerns identified Medications Home Medications: alprazolam [From Xanax] Allergy (Verified 09/25/19 13:57) diphenhydramine [From Benadryl] Allergy (Verified 09/25/19 13:57) ketorolac [From Toradol] Allergy (Verified 09/25/19 13:57) lorazepam [From Ativan] Allergy (Verified 09/25/19 13:57) morphine Allergy (Verified 09/25/19 13:57) Penicillins Allergy (Verified 09/25/19 13:57) Labs Result Diagrams: 11/10/20 19:58 11/10/20 19:58 Labs: Laboratory WBC 20.9 X10^3/uL (3.6-10.0) H 11/10/20 19:58 RBC 4.24 X10^6/uL (4.7-6.0) L 11/10/20 19:58 Hgb 13.6 g/dL (13.5-18.0) 11/10/20 19:58 Hct 40.9 % (42.0-54.0) L 11/10/20 19:58 MCV 96.4 fL (80.0-100.0) 11/10/20 19:58 MCH 32.2 pg (27.0-34.0) 11/10/20 19:58 MCHC 33.4 g/dL (33.0-35.0) 11/10/20 19:58 RDW 13.2 % (11.6-16.5) 11/10/20 19:58 Plt Count 215 X10^3/uL (150.0-450.0) 11/10/20 19:58 Plt Count Comment Adequate (ADEQUATE) 11/10/20 19:58 MPV 8.7 fL (7.4-11.0) 11/10/20 19:58 Neut % (Auto) 95.0 % (42.0-75.0) H 11/10/20 19:58 Lymph % (Auto) 2.0 % (21.0-51.0) L 11/10/20 19:58 [place] % (Auto) 1.6 % (0.0-13.0) 11/10/20 19:58 Eos % (Auto) 1.0 % (0.9-2.9) 11/10/20 19:58 Baso % (Auto) 0.4 % (0.2-1.0) 11/10/20 19:58 Neut # (Auto) 19.8 x10^3/uL (2.2-4.8) H 11/10/20 19:58 Lymph # (Auto) 0.4 X10^3/uL (1.3-2.9) L 11/10/20 19:58 [place] # (Auto) 0.3 x10^3/uL (0.3-0.8) 11/10/20 19:58 Eos # (Auto) 0.2 x10^3/uL (0.0-0.2) 11/10/20 19:58 Baso # (Auto) 0.1 X10^3/uL (0.0-0.1) 11/10/20 19:58 Absolute Nucleated RBC 0.0 /100WBC 11/10/20 19:58 Total Counted 100 11/10/20 19:58 Neutrophils % (Manual) 90 % (39-76) H 11/10/20 19:58 Band Neutrophils % 3 % (0-10) 11/10/20 19:58 Lymphocytes % (Manual) 4 % (13-43) L 11/10/20 19:58 Monocytes % (Manual) 3 % (4-9) L 11/10/20 19:58 Plt Morphology Comment Normal (NORMAL) 11/10/20 19:58 RBC Morphology Normal (NORMAL) 11/10/20 19:58 Sodium 142 mmol/L (136-145) 11/10/20 19:58 Corrected Sodium 142 mmol/L (136-145) 11/10/20 19:58 Potassium 4.0 mmol/L (3.5-5.1) 11/10/20 19:58 Chloride 103 mmol/L (98-107) 11/10/20 19:58 Carbon Dioxide 33.7 mmol/L (21-32) H 11/10/20 19:58 BUN 24 mg/dL (7-18) H 11/10/20 19:58 Creatinine 0.99 mg/dL (0.70-1.30) 11/10/20 19:58 Est GFR (MDRD) Af Amer > 60 (>60) 11/10/20 19:58 Est GFR (MDRD) Non-Af > 60 (>60) 11/10/20 19:58 Glucose 120 mg/dL (65-99) H 11/10/20 19:58 Calcium 9.5 mg/dL (8.5-10.1) 11/10/20 19:58 Corrected Calcium 10.1 mg/dL (8.5-10.1) 11/10/20 19:58 Total Bilirubin 2.00 mg/dL (0.2-1.0) H 11/10/20 19:58 AST 30 Units/L (15-37) 11/10/20 19:58 ALT 31 Units/L (12-78) 11/10/20 19:58 Alkaline Phosphatase 90 Units/L (46-116) 11/10/20 19:58 Troponin I < 0.02 ng/mL (0-1.5) 11/10/20 19:58 Total Protein 7.0 g/dL (6.4-8.2) 11/10/20 19:58 Albumin 3.2 g/dL (3.4-5.0) L 11/10/20 19:58 Globulin 3.8 g/dL (2.5-4.5) 11/10/20 19:58 Albumin/Globulin Ratio 0.8 Ratio (1.1-2.1) L 11/10/20 19:58 Amylase 23 Units/L (25-115) L 11/10/20 19:58 Lipase 52 Units/L (73-393) L 11/10/20 19:58 Specimen Type Clean catch urine 11/10/20 21:40 Urine Color Yellow (YELLOW) 11/10/20 21:40 Urine Appearance Clear (CLEAR) 11/10/20 21:40 Urine pH 8.0 (5.0 - 8.0) 11/10/20 21:40 Ur Specific [place] 1.015 (1.000-1.030) 11/10/20 21:40 Urine Protein Negative (NEGATIVE) 11/10/20 21:40 Urine Glucose (UA) Negative (NEGATIVE) 11/10/20 21:40 Urine Ketones 1+ (NEGATIVE) 11/10/20 21:40 Urine Occult Blood 1+ (NEGATIVE) 11/10/20 21:40 Urine Nitrite Negative (NEGATIVE) 11/10/20 21:40 Urine Bilirubin Negative (NEGATIVE) 11/10/20 21:40 Urine Urobilinogen Normal (NORMAL) 11/10/20 21:40 Ur Leukocyte Esterase Negative (NEGATIVE) 11/10/20 21:40 Urine RBC 0-2 /HPF (0-3) 11/10/20 21:40 Urine WBC 0-2 /HPF (0-5) 11/10/20 21:40 Ur Squamous Epith Cells Rare /HPF (NEGATIVE) 11/10/20 21:40 Urine Bacteria Negative /HPF (NEGATIVE) 11/10/20 21:40 Ur Culture Indicated? No/not indicated 11/10/20 21:40 SARS-CoV-2 (PCR) Negative (NEGATIVE) 11/10/20 21:45 Influenza Type A (PCR) Negative (NEGATIVE) 11/10/20 21:45 Influenza Type B (PCR) Negative (NEGATIVE) 11/10/20 21:45 RSV (PCR) Negative (NEGATIVE) 11/10/20 21:45 Review of Systems Constitutional: Weakness Eyes: No Symptoms Reported ENT: No Symptoms Reported Respiratory: Cough Cardiovascular: No Symptoms Reported Gastrointestinal: Abdominal Pain Genitourinary: No Symptoms Reported Musculoskeletal: Other (right hip pain ) Skin: No Symptoms Reported Neurological: No Symptoms Reported Physical Exam Vital Signs: Temperature 98.0 F Pulse Rate [Left Radial] 79 Pulse Rate 100 Respiratory Rate 22 Blood Pressure [Left Arm] 137/63 Blood Pressure [Right Arm] 143/63 Blood Pressure [Left Arm] 132/60 Blood Pressure [Right Arm] 164/78 Blood Pressure [Left Arm] 159/67 Blood Pressure 139/72 O2 Sat by Pulse Oximetry 97 Oriented: Normal Eyes: Normal Ear: Normal Nose: Normal Throat: Normal Respiratory: Diminished Throughout Cardiovascular: Normal Auscultation: Bowel Sounds: Normal Palpation: Normal Tenderness: Mild (epigastric ) and Other (PEG tube intact, no erythema or warmth, no drainage. No signs of infection noted. ) Skin: Decreased [place] Musculoskeletal: Normal, Right and Hip Psychiatric: Normal Mood Description: Calm and Appropriate Affect: Normal Speech Pattern: Clear and Appropriate Assessment/Plan (1) Bronchopneumonia: Status: Acute (2) Aspiration pneumonia: Qualifiers: Aspiration pneumonia type: unspecified Laterality: bilateral Lung location: unspecified part of lung Qualified Code(s): J69.0 - Pneumonitis due to inhalation of food and vomit Status: Acute (3) Pain around PEG tube site: Qualifiers: Encounter type: subsequent encounter Qualified Code(s): T85.848D - Pain due to other internal prosthetic devices, implants and grafts, subsequent encounter Status: Acute (4) Dehydration, mild: Status: Acute (5) Hypoalbuminemia due to protein-calorie malnutrition: Status: Acute Review H&P Reviewed: Yes Patient was examined?: Yes
--- NOTE | 2020-11-11 09:56 | RAD ---
HISTORYHIP PAIN, HX OF HIP SURGERYSTUDYX-ray pelvis and right hip, AP view pelvis and lateral view right hipCOMPARISONCT from previous dayFINDINGSExcreted contrast is seen in the urinary bladder. Postoperative changes are seen in the left femur. No significant arthritic changes are seen in the hips. No fracture or dislocation is seen. No widening of the symphysis pubis or SI joints is seen. Diffuse vascular calcifications are seen. Degenerative changes are seen in the lumbar spine.IMPRESSIONNo significant arthritic changes are seen in the hips.Electronically signed by: Brien Riley (November 11, 2020 09:54:14)
[2020-11-11] MEDS: PriLOSEC PO SCH ×2 (14:14→20:36)
[2020-11-11] MEDS: SYNTHROID 100 mcg TAB PEG SCH (14:14)
[2020-11-11] MEDS: CHRONULAC PEG SCH (14:14)
[2020-11-11] MEDS: LOVENOX INJ 40 MG SYR SC SCH (14:14)
[2020-11-11] MEDS: CLEOCIN 600 MG IV PREMIX 600 MG/50 ML BAG IV SCH ×2 (14:15→21:54)
[2020-11-11] MEDS ORDERED: LEVAQUIN PREMIX IV 500 MG 500 MG/100 ML BAG IV SCH (20:00)
[2020-11-11] MEDS ORDERED: AFRIN NASAL SPRAY PRN (21:20)
[2020-11-11] MEDS ORDERED: AFRIN NASAL SPRAY ONE (21:37)
[2020-11-12] MEDS: DUONEB 0.5 MG/3 MG (3 mL) NEB SCH ×4 (00:20→13:40)
[2020-11-12] MEDS: NS 1000 ML 1,000 ML IV SCH (04:17)
[2020-11-12] MEDS: CLEOCIN 600 MG IV PREMIX 600 MG/50 ML BAG IV SCH (05:03)
[2020-11-12 06:09] LABS: BASOPHILS % (AUTO) 0.2 % (0.2-1.0); EOSINOPHILS % (AUTO) 0.2 % (0.9-2.9); HEMATOCRIT 32.9 % (42.0-54.0); HEMOGLOBIN 11.1 g/dL (13.5-18.0); LYMPHOCYTES # (AUTO) 0.7 X10^3/uL (1.3-2.9); LYMPHOCYTES % (AUTO) 5.4 % (21.0-51.0); MEAN CORPUSCULAR HEMOGLOBIN 32.7 pg (27.0-34.0); MEAN CORPUSCULAR HGB CONC 33.9 g/dL (33.0-35.0); MEAN CORPUSCULAR VOLUME 96.4 fL (80.0-100.0); MEAN PLATELET VOLUME 9.1 fL (7.4-11.0); MONOCYTES # (AUTO) 0.7 x10^3/uL (0.3-0.8); MONOCYTES % (AUTO) 5.8 % (0.0-13.0); NEUTROPHILS # (AUTO) 11.2 x10^3/uL (2.2-4.8); NEUTROPHILS % (AUTO) 88.4 % (42.0-75.0); PLATELET COUNT 170 X10^3/uL (150.0-450.0); RED BLOOD COUNT 3.41 X10^6/uL (4.7-6.0); RED CELL DISTRIBUTION WIDTH 13.5 % (11.6-16.5); WHITE BLOOD COUNT 12.7 X10^3/uL (3.6-10.0)
[2020-11-12 06:33] LABS: ALANINE AMINOTRANSFERASE 23 Units/L (12-78); ALBUMIN 2.3 g/dL (3.4-5.0); ALKALINE PHOSPHATASE 67 Units/L (46-116); ASPARTATE AMINO TRANSFERASE 22 Units/L (15-37); BLOOD UREA NITROGEN 21 mg/dL (7-18); CALCIUM 8.6 mg/dL (8.5-10.1); CARBON DIOXIDE 30.5 mmol/L (21-32); CHLORIDE 108 mmol/L (98-107); COR NA(FOR HYPERGLY) 145 mmol/L (136-145); SODIUM 144 mmol/L (136-145); TOTAL PROTEIN 5.6 g/dL (6.4-8.2); eGFR NON BLACK RACES > 60 (>60)
[2020-11-12] MEDS: CHRONULAC PEG SCH (09:33)
[2020-11-12] MEDS: SYNTHROID 100 mcg TAB PEG SCH (09:33)
[2020-11-12] MEDS: LOVENOX INJ 40 MG SYR SC SCH (09:33)
--- NOTE | 2020-11-12 10:22 | W.DIS.FURT ---
Summary of Discharge Admission Diagnosis Patient Problems (Updated 11/11/20 @ 13:18 by Zahra Can) Pneumonia (Acute) J18.9 Acute dyspnea (Acute) R06.00 Vital Signs: Vital Signs (72 hours) 11/10/20 19:07 11/10/20 19:11 11/10/20 19:31 Temperature 98.6 F Pulse Rate 113 H 123 H 114 H Pulse Rate [Left Radial] Respiratory Rate 22 Blood Pressure 145/66 145/66 139/72 Blood Pressure [Left Arm] Blood Pressure [Right Arm] O2 Sat by Pulse Oximetry 92 L 90 L 93 L 11/11/20 00:50 11/11/20 01:30 11/11/20 01:36 Temperature Pulse Rate 100 H Pulse Rate [Left Radial] Respiratory Rate Blood Pressure Blood Pressure [Left Arm] 138/72 159/67 Blood Pressure [Right Arm] O2 Sat by Pulse Oximetry 93 L 11/11/20 01:57 11/11/20 02:00 11/11/20 02:46 Temperature 97.9 F Pulse Rate 100 H Pulse Rate [Left Radial] 105 H Respiratory Rate 20 21 18 Blood Pressure 139/72 Blood Pressure [Left Arm] 140/63 Blood Pressure [Right Arm] O2 Sat by Pulse Oximetry 93 L 99 11/11/20 03:46 11/11/20 03:56 11/11/20 03:58 Temperature 98.0 F 98.0 F Pulse Rate Pulse Rate [Left Radial] 82 82 Respiratory Rate 18 20 20 Blood Pressure Blood Pressure [Left Arm] 128/60 128/60 Blood Pressure [Right Arm] O2 Sat by Pulse Oximetry 100 100 11/11/20 08:00 11/11/20 08:51 11/11/20 12:00 Temperature 98.0 F 97.7 F Pulse Rate 84 Pulse Rate [Left Radial] 79 81 Respiratory Rate 22 20 Blood Pressure Blood Pressure [Left Arm] 137/63 129/62 Blood Pressure [Right Arm] O2 Sat by Pulse Oximetry 97 100 97 11/11/20 16:00 11/11/20 20:00 11/11/20 20:36 Temperature 97.7 F 98.0 F Pulse Rate Pulse Rate [Left Radial] 89 84 Respiratory Rate 18 18 19 Blood Pressure Blood Pressure [Left Arm] 129/60 138/63 Blood Pressure [Right Arm] O2 Sat by Pulse Oximetry 96 95 11/11/20 20:39 11/11/20 21:36 11/11/20 23:37 Temperature 98.3 F Pulse Rate 86 Pulse Rate [Left Radial] 88 Respiratory Rate 17 20 Blood Pressure Blood Pressure [Left Arm] 138/63 Blood Pressure [Right Arm] O2 Sat by Pulse Oximetry 97 96 11/12/20 00:20 11/12/20 03:47 11/12/20 05:15 Temperature 98.7 F Pulse Rate 88 75 Pulse Rate [Left Radial] 92 H Respiratory Rate 20 Blood Pressure Blood Pressure [Left Arm] Blood Pressure [Right Arm] 136/83 O2 Sat by Pulse Oximetry 96 97 96 11/12/20 08:00 11/12/20 09:00 Temperature 98.1 F Pulse Rate 88 Pulse Rate [Left Radial] 80 Respiratory Rate 22 Blood Pressure Blood Pressure [Left Arm] Blood Pressure [Right Arm] 144/64 O2 Sat by Pulse Oximetry 98 95 Labs: Laboratory Last Values WBC 12.7 X10^3/uL (3.6-10.0) H D 11/12/20 05:10 RBC 3.41 X10^6/uL (4.7-6.0) L 11/12/20 05:10 Hgb 11.1 g/dL (13.5-18.0) L D 11/12/20 05:10 Hct 32.9 % (42.0-54.0) L 11/12/20 05:10 MCV 96.4 fL (80.0-100.0) 11/12/20 05:10 MCH 32.7 pg (27.0-34.0) 11/12/20 05:10 MCHC 33.9 g/dL (33.0-35.0) 11/12/20 05:10 RDW 13.5 % (11.6-16.5) 11/12/20 05:10 Plt Count 170 X10^3/uL (150.0-450.0) 11/12/20 05:10 Plt Count Comment Adequate (ADEQUATE) 11/10/20 19:58 MPV 9.1 fL (7.4-11.0) 11/12/20 05:10 Neut % (Auto) 88.4 % (42.0-75.0) H 11/12/20 05:10 Lymph % (Auto) 5.4 % (21.0-51.0) L 11/12/20 05:10 [place] % (Auto) 5.8 % (0.0-13.0) 11/12/20 05:10 Eos % (Auto) 0.2 % (0.9-2.9) L 11/12/20 05:10 Baso % (Auto) 0.2 % (0.2-1.0) 11/12/20 05:10 Neut # (Auto) 11.2 x10^3/uL (2.2-4.8) H 11/12/20 05:10 Lymph # (Auto) 0.7 X10^3/uL (1.3-2.9) L 11/12/20 05:10 [place] # (Auto) 0.7 x10^3/uL (0.3-0.8) 11/12/20 05:10 Eos # (Auto) 0.0 x10^3/uL (0.0-0.2) 11/12/20 05:10 Baso # (Auto) 0.0 X10^3/uL (0.0-0.1) 11/12/20 05:10 Absolute Nucleated RBC 0.0 /100WBC 11/12/20 05:10 Total Counted 100 11/10/20 19:58 Neutrophils % (Manual) 90 % (39-76) H 11/10/20 19:58 Band Neutrophils % 3 % (0-10) 11/10/20 19:58 Lymphocytes % (Manual) 4 % (13-43) L 11/10/20 19:58 Monocytes % (Manual) 3 % (4-9) L 11/10/20 19:58 Plt Morphology Comment Normal (NORMAL) 11/10/20 19:58 RBC Morphology Normal (NORMAL) 11/10/20 19:58 Sodium 144 mmol/L (136-145) 11/12/20 05:10 Corrected Sodium 145 mmol/L (136-145) 11/12/20 05:10 Potassium 3.8 mmol/L (3.5-5.1) 11/12/20 05:10 Chloride 108 mmol/L (98-107) H 11/12/20 05:10 Carbon Dioxide 30.5 mmol/L (21-32) 11/12/20 05:10 BUN 21 mg/dL (7-18) H 11/12/20 05:10 Creatinine 0.90 mg/dL (0.70-1.30) 11/12/20 05:10 Est GFR (MDRD) Af Amer > 60 (>60) 11/12/20 05:10 Est GFR (MDRD) Non-Af > 60 (>60) 11/12/20 05:10 Glucose 135 mg/dL (65-99) H 11/12/20 05:10 Calcium 8.6 mg/dL (8.5-10.1) 11/12/20 05:10 Corrected Calcium 10.0 mg/dL (8.5-10.1) 11/12/20 05:10 Total Bilirubin 0.80 mg/dL (0.2-1.0) 11/12/20 05:10 AST 22 Units/L (15-37) 11/12/20 05:10 ALT 23 Units/L (12-78) 11/12/20 05:10 Alkaline Phosphatase 67 Units/L (46-116) 11/12/20 05:10 Troponin I < 0.02 ng/mL (0-1.5) 11/10/20 19:58 Total Protein 5.6 g/dL (6.4-8.2) L 11/12/20 05:10 Albumin 2.3 g/dL (3.4-5.0) L 11/12/20 05:10 Globulin 3.3 g/dL (2.5-4.5) 11/12/20 05:10 Albumin/Globulin Ratio 0.7 Ratio (1.1-2.1) L 11/12/20 05:10 Amylase 23 Units/L (25-115) L 11/10/20 19:58 Lipase 52 Units/L (73-393) L 11/10/20 19:58 Specimen Type Clean catch urine 11/10/20 21:40 Urine Color Yellow (YELLOW) 11/10/20 21:40 Urine Appearance Clear (CLEAR) 11/10/20 21:40 Urine pH 8.0 (5.0 - 8.0) 11/10/20 21:40 Ur Specific [place] 1.015 (1.000-1.030) 11/10/20 21:40 Urine Protein Negative (NEGATIVE) 11/10/20 21:40 Urine Glucose (UA) Negative (NEGATIVE) 11/10/20 21:40 Urine Ketones 1+ (NEGATIVE) 11/10/20 21:40 Urine Occult Blood 1+ (NEGATIVE) 11/10/20 21:40 Urine Nitrite Negative (NEGATIVE) 11/10/20 21:40 Urine Bilirubin Negative (NEGATIVE) 11/10/20 21:40 Urine Urobilinogen Normal (NORMAL) 11/10/20 21:40 Ur Leukocyte Esterase Negative (NEGATIVE) 11/10/20 21:40 Urine RBC 0-2 /HPF (0-3) 11/10/20 21:40 Urine WBC 0-2 /HPF (0-5) 11/10/20 21:40 Ur Squamous Epith Cells Rare /HPF (NEGATIVE) 11/10/20 21:40 Urine Bacteria Negative /HPF (NEGATIVE) 11/10/20 21:40 Ur Culture Indicated? No/not indicated 11/10/20 21:40 SARS-CoV-2 (PCR) Negative (NEGATIVE) 11/10/20 21:45 Influenza Type A (PCR) Negative (NEGATIVE) 11/10/20 21:45 Influenza Type B (PCR) Negative (NEGATIVE) 11/10/20 21:45 RSV (PCR) Negative (NEGATIVE) 11/10/20 21:45 Reason For Visit: PNEUMONIA Discharge Diagnosis All Active Problems (Updated 11/11/20 @ 13:18 by Zahra Can) Pain around PEG tube site (Acute) Aspiration pneumonia (Acute) Bronchopneumonia (Acute) Gastrostomy hemorrhage (Acute) Thrombocytopenia (Acute) Anemia, normocytic normochromic (Acute) Gastrointestinal bleeding, upper (Acute) Gastric ulcer (Acute) Pneumonia (Acute) Acute dyspnea (Acute) Thrush, oral (Acute) Dehydration with hypernatremia (Acute) Hypernatremia (Acute) Hypercalcemia (Acute) Hypoalbuminemia due to protein-calorie malnutrition (Acute) Nephrolithiasis (Acute) Drug-induced hyperkalemia (Acute) Dehydration, mild (Acute) Acute GI bleeding (Acute) Hyperglycemia (Acute) Plan of Treatment: Continue with present treatment and follow up plan. Pt is to keep follow up appointment as instructed and take medications as ordered. Discharge Medications Discharge Medications: alprazolam [From Xanax] Allergy (Verified 09/25/19 13:57) diphenhydramine [From Benadryl] Allergy (Verified 09/25/19 13:57) ketorolac [From Toradol] Allergy (Verified 09/25/19 13:57) lorazepam [From Ativan] Allergy (Verified 09/25/19 13:57) morphine Allergy (Verified 09/25/19 13:57) Penicillins Allergy (Verified 09/25/19 13:57) New Prescriptions clindamycin HCl 300 mg PO BID 3 Days #6 cap 11/12/20 [Rx] levofloxacin 750 mg PO DAILY 5 Days #5 tab 11/12/20 [Rx] Discharge Plan Discharge Plan Patient Disposition: 01 HOME, SELF-CARE Condition: Stable Health Concerns: Post Hospitalization: new medications and changes needed to prevent readmission or further decline. Pt educated and given instructions on all concerns. Plan of Treatment: Continue with present treatment and follow up plan. Pt is to keep follow up appointment as instructed and take medications as ordered. Prescription drug monitoring program results: PDMP reviewed and no concerns identified Prescriptions: New clindamycin HCl 300 mg capsule 300 mg PO BID 3 Days Qty: 6 RF: 0 levofloxacin 750 mg tablet 750 mg PO DAILY 5 Days Qty: 5 RF: 0 Continued nystatin 100,000 unit/mL Suspension 100,000 unit BUCCAL DAILY RF: 0 levothyroxine [Synthroid] 100 mcg Tablet 100 mcg feeding tube DAILY RF: 0 tramadol [Ultram] 50 mg Tablet 50 mg feeding tube Q6H PRNRF: 0 lactulose 10 gram/15 mL Solution 15 mg feeding tube DAILY RF: 0 Follow ups/Referrals Follow ups/Referrals: CARISSA HUNTER [Primary Care Provider] - 11/19/20 9:15 am Instructions Stand Alone Forms: Excuse From Work or School, Precautions for COVID19, Patient Portal, Social Distancing
[2020-11-12 12:22] VITALS: BP 147/63
== END 2020-11-12 15:50 | disposition home health service (06) | DRG 194 ==
LOC: ER 19:07 → MED/SURG 11-11 01:25
PROVIDERS: ADMIT Family Medicine; ATTEND Family Medicine
DX: J18.8 Other pneumonia, unspecified organism; E86.0 Dehydration; C14.0 Malignant neoplasm of pharynx, unspecified; Z92.3 Personal history of irradiation; E03.8 Other specified hypothyroidism; K94.23 Gastrostomy malfunction; F41.8 Other specified anxiety disorders; R94.31 Abnormal electrocardiogram [ECG] [EKG]; Z92.21 Personal history of antineoplastic chemotherapy; K21.9 Gastro-esophageal reflux disease without esophagitis; M25.551 Pain in right hip; Z20.822 Contact with and (suspected) exposure to COVID-19; T85.848D Pain due to other internal prosthetic devices, implants and grafts, subsequent encounter

== ENCOUNTER 2021-09-06 07:30 | Observation (INO) ==
[2021-09-06 08:02] VITALS: BMI 21.9
[2021-09-06 08:31] LABS: BASOPHILS # (AUTO) 0.1 X10^3/uL (0.0-0.1); BASOPHILS % (AUTO) 0.6 % (0.2-1.0); EOSINOPHILS # (AUTO) 0.1 x10^3/uL (0.0-0.2); EOSINOPHILS % (AUTO) 0.7 % (0.9-2.9); HEMATOCRIT 27.4 % (42.0-54.0); HEMOGLOBIN 9.4 g/dL (13.5-18.0); LYMPHOCYTES # (AUTO) 1.1 X10^3/uL (1.3-2.9); LYMPHOCYTES % (AUTO) 8.4 % (21.0-51.0); MEAN CORPUSCULAR HEMOGLOBIN 32.8 pg (27.0-34.0); MEAN CORPUSCULAR HGB CONC 34.4 g/dL (33.0-35.0); MEAN CORPUSCULAR VOLUME 95.3 fL (80.0-100.0); MONOCYTES # (AUTO) 0.6 x10^3/uL (0.3-0.8); MONOCYTES % (AUTO) 4.9 % (0.0-13.0); NEUTROPHILS # (AUTO) 10.9 x10^3/uL (2.2-4.8); NEUTROPHILS % (AUTO) 85.4 % (42.0-75.0); RED BLOOD COUNT 2.88 X10^6/uL (4.7-6.0); RED CELL DISTRIBUTION WIDTH 13.4 % (11.6-16.5); WHITE BLOOD COUNT 12.8 X10^3/uL (3.6-10.0)
--- NOTE | 2021-09-06 08:31 | DR.ABDMALE ---
HPI Time seen Time Seen by Provider: 09/06/21 08:00 PCP Primary Care Physician: DALE HPI comment HPI Comment: PATIENT IS 89 YR OLD MALE IN ER WITH DAUGHTER WHO REPORT DARK BLOOD IN PEG TUBE AND TARRY DARK STOOL TIME3 DAYS. PEG TUBE WAS RECENTLY REPLACE. Complaint Chief Complaint Doctors Comments: DARK TARRY STOOL AND DARK BLOOD IN PEG TUBE TIMES 3 DAYS Chief Complaint:: PATIENT'S DAUGHTER STATES PATIENT IS HAVING DARK TARRY STOOLS AND NOTED DARK BLOOD IN HIS PEG TUBE. PATIENT JUST RECENTLY HAD PEG TUBE REPLACED THIS PAST WEEKEND IN ED. DR BURDEN IS PATIENTS PHYSICIAN COVID-19 Coronavirus risk:travel/contact w/high risk person: No Has patient experienced Coronavirus symptoms: No Reviewed Nurses Notes Review: Yes Mode of arrival Mode of Arrival: Wheelchair Timing Onset of Chief Complaint: 09/03/21 Came on: Suddenly Duration Duration: Constant Duration: Days Context Onset: Suddenly History of: Abdominal surgery Modifying factors Worsening Factors: Rest Associated signs and symptoms Associated Signs and Symptoms: None PMH PMH Past Medical History: Yes Past Medical History: Anemia, Anxiety, GERD, Hypertension, Hypothyroidism, Kidney Stones and PUD Past Medical History Comment: THROAT CA Past Surgical History: Yes Surgical History: Ortho Surgery Past Surgical History Comment: THROAT SURGERY, PEG TUBE Family History History of Family Medical Conditions: Yes Family Medical History: Hypertension Social History Does any household member use tobacco: No Alcohol Use: None Do you use any recreational Drugs:: No Lives With: Family Lives Where: Home Travel Risk Coronavirus risk:travel/contact w/high risk person: No Has patient experienced Coronavirus symptoms: No Infectious screening In the last 2 months have you had wt loss of >10#?: NO Have you had fever, night sweats or hemotysis?: No Have you traveled outside the country in the last 6 months?: No Isolation: Standard ROS Review of Systems Constitutional: See HPI, Weakness and Fatigue; negative Fever Eyes: No Symptoms Reported and See HPI ENTM: No Symptoms Reported and See HPI; negative Nose Discharge and Nose Congestion Respiratoy: See HPI and Short of Breath (ON EXERTION.); negative Moist Cough and Wheezing Cardiovascular: No Symptoms Reported and See HPI Gastrointestinal/Abdominal: No Symptoms Reported, See HPI, Abdominal Pain and Other (BLOOD IN STOOL.); negative Diarrhea, Nausea and Vomiting Genitourinary: No Symptoms Reported and See HPI; negative Dysuria Neurological: No Symptoms Reported and See HPI; negative Headache, Weakness and Dizziness Musculoskeletal: No Symptoms Reported and See HPI; negative Back Pain and Muscle Pain Integumentary: No Symptoms Reported and See HPI; negative Rash and Juandice Hematologic/Lymphatic: No Symptoms Reported and See HPI; negative Easy Bruising Endocrine: No Symptoms Reported and See HPI; negative Increased Thirst and Increased Urine Psychiatric: No Symptoms Reported and See HPI All Other Systems: Reviewed and Negative PE Vital Signs Vital Signs: Temp Pulse Resp BP BP BP Pulse Ox 09/06/21 09:17 90 93 L 09/06/21 09:15 157/74 09/06/21 09:11 145/59 09/06/21 09:07 94 L 09/06/21 09:00 93 H 150/67 97 09/06/21 08:45 86 165/69 97 09/06/21 08:30 158/74 09/06/21 08:15 98 H 163/76 96 09/06/21 08:02 83 97 09/06/21 07:50 97.9 F 86 18 184/77 99 09/04/21 07:34 178/83 11/18/20 11:20 129/60 11/12/20 08:00 144/64 11/11/20 01:36 159/67 09/20/19 04:00 132/60 02/01/19 20:48 164/78 General Limitations: No Limitations General Appearance: Alert and In No Apparent Distress Head Head Exam: Normal Inspection Eyes Eye exam: Normal Appearance; negative Scleral Icterus and Conjunctival Injection ENT ENT Exam: Normal Exam, Normal Oropharynx, Normal External Ear Exam and TM's Normal Bilaterally Neck Neck Exam: Normal Inspection and Trachea Midline; negative Tenderness Chest Chest Inspection: Normal Inspection and Symmetric Chest Wall Rise; negative Tend erness Respiratory Respiratory Exam: Normal Lung Sounds Bilat; negative Accessory Muscle Use, Chest Wall Tenderness and Respiratory Distress Respiratory Exam: Bilateral: Rhonchi and Lower: Rhonchi Cardiovascular Cardiovascular Exam: Regular Rate, Normal Rhythm and Normal Heart Sounds; negative Systolic Murmur and Diastolic Murmur Abdominal Exam Abdominal Exam: Normal Inspection, Normal Bowel Sounds, Soft and Tenderness Abdominal Tenderness: Diffuse and Moderate Rectal Rectal Exam: Black Stool Back Back Exam: Normal Inspection; negative (R) CVA Tenderness and (L) CVA Tenderness Extremeties Extremities Exam: Normal Inspection Exam: Male: Deferred Neurologic Neurological Exam: Alert and Oriented X3 Psychiatric Psychiatric Exam: Normal Affect and Normal Mood Skin Skin Exam: Warm, Dry, Intact and Normal Color MDM Additional Information Obtained From Additional information provided by: Old Records and Family Differential Diagnosis Differential Diagnosis: Diverticular disease, Gastritus/PUD, Gastroenteritis and Inflammatory BD ROR Labs Reviewed Laboratory Results Reviewed?: Yes Result Diagrams: 09/08/21 09:34 Laboratory: WBC 12.8 X10^3/uL (3.6-10.0) H 09/06/21 08:14 RBC 2.88 X10^6/uL (4.7-6.0) L 09/06/21 08:14 Hgb 9.4 g/dL (13.5-18.0) L D 09/06/21 08:14 Hct 27.4 % (42.0-54.0) L 09/06/21 08:14 MCV 95.3 fL (80.0-100.0) 09/06/21 08:14 MCH 32.8 pg (27.0-34.0) 09/06/21 08:14 MCHC 34.4 g/dL (33.0-35.0) 09/06/21 08:14 RDW 13.4 % (11.6-16.5) 09/06/21 08:14 Plt Count 188 X10^3/uL (150.0-450.0) 09/06/21 08:14 MPV 9.0 fL (7.4-11.0) 09/06/21 08:14 Neut % (Auto) 85.4 % (42.0-75.0) H 09/06/21 08:14 Lymph % (Auto) 8.4 % (21.0-51.0) L 09/06/21 08:14 [place] % (Auto) 4.9 % (0.0-13.0) 09/06/21 08:14 Eos % (Auto) 0.7 % (0.9-2.9) L 09/06/21 08:14 Baso % (Auto) 0.6 % (0.2-1.0) 09/06/21 08:14 Neut # (Auto) 10.9 x10^3/uL (2.2-4.8) H 09/06/21 08:14 Lymph # (Auto) 1.1 X10^3/uL (1.3-2.9) L 09/06/21 08:14 [place] # (Auto) 0.6 x10^3/uL (0.3-0.8) 09/06/21 08:14 Eos # (Auto) 0.1 x10^3/uL (0.0-0.2) 09/06/21 08:14 Baso # (Auto) 0.1 X10^3/uL (0.0-0.1) 09/06/21 08:14 Absolute Nucleated RBC 0.1 /100WBC 09/06/21 08:14 PT 13.2 SECONDS (11.8-14.3) 09/06/21 08:14 INR Target Range - 09/06/21 08:14 INR 1.05 (0.8-1.3) 09/06/21 08:14 APTT 29.7 SECONDS (22.9-36.5) 09/06/21 08:14 PTT Comment - 09/06/21 08:14 Sodium 143 mmol/L (136-145) 09/06/21 08:14 Corrected Sodium 144 mmol/L (136-145) 09/06/21 08:14 Potassium 4.6 mmol/L (3.5-5.1) 09/06/21 08:14 Chloride 107 mmol/L (98-107) 09/06/21 08:14 Carbon Dioxide 35.1 mmol/L (21-32) H 09/06/21 08:14 BUN 53 mg/dL (7-18) H 09/06/21 08:14 Creatinine 1.01 mg/dL (0.70-1.30) 09/06/21 08:14 Est GFR (MDRD) Af Amer > 60 (>60) 09/06/21 08:14 Est GFR (MDRD) Non-Af > 60 (>60) 09/06/21 08:14 Glucose 123 mg/dL (65-99) H 09/06/21 08:14 Calcium 9.0 mg/dL (8.5-10.1) 09/06/21 08:14 Corrected Calcium 9.9 mg/dL (8.5-10.1) 09/06/21 08:14 Total Bilirubin 0.30 mg/dL (0.2-1.0) 09/06/21 08:14 AST 28 Units/L (15-37) 09/06/21 08:14 ALT 23 Units/L (12-78) 09/06/21 08:14 Alkaline Phosphatase 85 Units/L (46-116) 09/06/21 08:14 Total Protein 6.3 g/dL (6.4-8.2) L 09/06/21 08:14 Albumin 2.9 g/dL (3.4-5.0) L 09/06/21 08:14 Globulin 3.4 g/dL (2.5-4.5) 09/06/21 08:14 Albumin/Globulin Ratio 0.9 Ratio (1.1-2.1) L 09/06/21 08:14 Amylase 25 Units/L (25-115) 09/06/21 08:14 Lipase 54 Units/L (73-393) L 09/06/21 08:14 Blood Type O POSITIVE 09/06/21 08:14 Antibody Screen Negative 09/06/21 08:14 XRAY XRAY Interpreted by: Radiologist (REPORT NOTED.) and Self Opioid Opioid Risk Tool Age (Feng box if 16-45): No History of Preadolescent Sexual Abuse: No Total: 0 Total Score Risk Category: Low Risk Copyright: Shin SANCHES predicting aberrant behaviors Diagnosis Discharge Problem: GI (gastrointestinal bleed) Qualifiers: GI bleed type/associated pathology: unspecified gastrointestinal hemorrhage type Qualified Code(s): K92.2 - Gastrointestinal hemorrhage, unspecified Abdominal pain Qualifiers: Abdominal location: unspecified location Qualified Code(s): R10.9 - Unspecified abdominal pain Anemia Qualifiers: Anemia type: unspecified type Qualified Code(s): D64.9 - Anemia, unspecified Instructions Instructions: Anemia PEG Tube Home Guide, Uagh-js-Iujo How to Care for a Feeding Tube, [id number] Gastrointestinal Bleeding, [id number] Lower Gastrointestinal Bleeding
[2021-09-06 08:48] LABS: ALANINE AMINOTRANSFERASE 23 Units/L (12-78); ALBUMIN 2.9 g/dL (3.4-5.0); ALKALINE PHOSPHATASE 85 Units/L (46-116); AMYLASE 25 Units/L (25-115); ASPARTATE AMINO TRANSFERASE 28 Units/L (15-37); BLOOD UREA NITROGEN 53 mg/dL (7-18); CARBON DIOXIDE 35.1 mmol/L (21-32); CHLORIDE 107 mmol/L (98-107); COR CA(FOR HYPOALB) 9.9 mg/dL (8.5-10.1); COR NA(FOR HYPERGLY) 144 mmol/L (136-145); CREATININE 1.01 mg/dL (0.70-1.30); LIPASE 54 Units/L (73-393); SODIUM 143 mmol/L (136-145); TOTAL PROTEIN 6.3 g/dL (6.4-8.2); eGFR NON BLACK RACES > 60 (>60)
[2021-09-06] MEDS ORDERED: PROTONIX INJ 40 MG VIAL IVP ONE (09:14)
[2021-09-06] MEDS ORDERED: PROTONIX INJ 40 MG VIAL ONE (09:28)
[2021-09-06] MEDS ORDERED: D5 1/2 NS 1,000 ML 1,000 ML IV ONE (09:29)
[2021-09-06] MEDS: D5 1/2 NS 1,000 ML 1,000 ML IV SCH ×2 (09:34→20:33)
[2021-09-06] MEDS ORDERED: ZOFRAN INJ 4 MG VIAL IVP PRN (10:47)
[2021-09-06] MEDS ORDERED: STERILE WATER IRRIGATION IR ONE (10:48)
--- NOTE | 2021-09-06 11:14 | RAD ---
HISTORYABDOMINAL PAIN, GI TUBE Relevant Clinical InformationSTUDYCHEST, 1 VIEWCOMPARISONChest x-ray dated November 10, 2020.FINDINGSThe trachea is midline. The cardiac silhouette is unchanged. The lungs are clear without focal infiltrate, pneumothorax, or effusion. The bony thorax is unremarkable. A G-tube is seen projecting over the upper abdomen.IMPRESSIONNo acute cardiopulmonary findings .Electronically signed by: ESTHER SHEN (Sep 06, 2021 11:13:39)
--- NOTE | 2021-09-06 11:23 | CT ---
HISTORYABDOMINAL PAIN, GI TUBESTUDYABDOMEN/PELVIS WITH CONCOMPARISONCT abdomen/pelvis dated November 10, 2020.TECHNIQUEMultiple axial images of the abdomen and pelvis were obtained from the lung bases to the pubic symphysis after the administration of IV contrast. Dose reduction techniques including Automated Exposure Control (AEC) and adjustment of mA and kV were utilized.FINDINGSBibasilar scarring versus atelectasis. Otherwise, the visualized portions of the lung bases are unremarkable. G-tube appears unchanged and in good position. No obvious signs to suggest complication. The visualized liver, gallbladder, left adrenal gland, pancreas, and spleen are unremarkable. Stable appearing 1.5 cm right adrenal gland nodule with internal Hounsfield units of 53 (series 8, image 21). This is indeterminate. Bilateral nonobstructing renal nephroliths and multiple too small to characterize hypodensities within the right kidney appear unchanged given technique. No significant mesenteric lymphadenopathy or stranding can be observed. No free fluid or free air is seen within the abdomen. Limited evaluation of the large and small bowel secondary to lack of oral contrast and collapse. No significant diverticular disease. The large and small bowel are otherwise unremarkable. The appendix appears normal. The prostate gland is unremarkable. The urinary bladder is grossly unremarkable. Vascular calcifications without evidence of aneurysmal dilatation. Cortical screws are seen within the left hip and appear intact. Degenerative changes of the spine. No aggressive osseous lesions.IMPRESSIONOne. No CT evidence of acute abdominal/pelvic pathology.Two. 1.5 cm indeterminate right adrenal gland nodule as above. Recommend dedicated three-phase adrenal CT or MRI of the abdomen with contrast on outpatient basis for further characterization.Three. Other chronic findings as above.Electronically signed by: ESTHER SHEN (Sep 06, 2021 11:22:24)
[2021-09-06 12:41] LABS: HEMATOCRIT 23.4 % (42.0-54.0); HEMOGLOBIN 8.1 g/dL (13.5-18.0)
[2021-09-06] MEDS ORDERED: LR 1,000 ML IV 1,000 ML IV ONE (13:07)
[2021-09-06] MEDS ORDERED: DIPRIVAN VIAL 20 ML ONE (13:39)
[2021-09-06 16:37] LABS: HEMATOCRIT 25.1 % (42.0-54.0); HEMOGLOBIN 8.5 g/dL (13.5-18.0)
[2021-09-06 19:47] LABS: BILIRUBIN,URINE NEGATIVE (NEGATIVE); BLOOD/HEMOGLOBIN,URINE NEGATIVE (NEGATIVE); GLUCOSE, URINE NEGATIVE (NEGATIVE); KETONES,URINE NEGATIVE (NEGATIVE); LEUKOCYTE ESTERASE ,URINE NEGATIVE (NEGATIVE); NITRITES,URINE NEGATIVE (NEGATIVE); PROTEIN,URINE 1+ (NEGATIVE); UROBILINOGEN,URINE NORMAL (NORMAL)
[2021-09-06 19:49] LABS: APPEARANCE,URINE CLEAR (CLEAR); COLOR,URINE YELLOW (YELLOW)
[2021-09-06 19:56] LABS: BACTERIA,URINE NEGATIVE /HPF (NEGATIVE); RBC,URINE 0-2 /HPF (0-3); SQUAMOUS EPITHELIAL CELL,UR NEGATIVE /HPF (NEGATIVE)
[2021-09-06] MEDS: ULTRAM PO PRN (21:14)
[2021-09-06] MEDS: PROTONIX INJ 40 MG VIAL IVP SCH (21:15)
[2021-09-07] MEDS: D5 1/2 NS 1,000 ML 1,000 ML IV SCH ×3 (03:00→17:48)
[2021-09-07 05:59] LABS: BASOPHILS % (AUTO) 0.4 % (0.2-1.0); EOSINOPHILS % (AUTO) 0.3 % (0.9-2.9); HEMATOCRIT 20.5 % (42.0-54.0); HEMOGLOBIN 7.2 g/dL (13.5-18.0); LYMPHOCYTES # (AUTO) 1.3 X10^3/uL (1.3-2.9); LYMPHOCYTES % (AUTO) 12.2 % (21.0-51.0); MEAN CORPUSCULAR HEMOGLOBIN 33.6 pg (27.0-34.0); MEAN CORPUSCULAR HGB CONC 35.1 g/dL (33.0-35.0); MEAN CORPUSCULAR VOLUME 95.5 fL (80.0-100.0); MEAN PLATELET VOLUME 9.2 fL (7.4-11.0); MONOCYTES # (AUTO) 0.5 x10^3/uL (0.3-0.8); MONOCYTES % (AUTO) 4.6 % (0.0-13.0); NEUTROPHILS # (AUTO) 8.8 x10^3/uL (2.2-4.8); NEUTROPHILS % (AUTO) 82.5 % (42.0-75.0); RED BLOOD COUNT 2.14 X10^6/uL (4.7-6.0); RED CELL DISTRIBUTION WIDTH 13.4 % (11.6-16.5); WHITE BLOOD COUNT 10.6 X10^3/uL (3.6-10.0)
[2021-09-07 06:18] LABS: ALANINE AMINOTRANSFERASE 20 Units/L (12-78); ALBUMIN 2.4 g/dL (3.4-5.0); ALKALINE PHOSPHATASE 67 Units/L (46-116); AMYLASE 18 Units/L (25-115); ASPARTATE AMINO TRANSFERASE 23 Units/L (15-37); BLOOD UREA NITROGEN 35 mg/dL (7-18); CALCIUM 7.8 mg/dL (8.5-10.1); CARBON DIOXIDE 29.9 mmol/L (21-32); CHLORIDE 109 mmol/L (98-107); COR CA(FOR HYPOALB) 9.1 mg/dL (8.5-10.1); COR NA(FOR HYPERGLY) 145 mmol/L (136-145); CREATININE 0.83 mg/dL (0.70-1.30); LIPASE 41 Units/L (73-393); SODIUM 144 mmol/L (136-145); TOTAL PROTEIN 5.3 g/dL (6.4-8.2); eGFR NON BLACK RACES > 60 (>60)
[2021-09-07] MEDS ORDERED: KLOR-CON PO PRN (06:23)
[2021-09-07] MEDS ORDERED: K-DUR TAB 20 MEQ PO PRN (06:23)
[2021-09-07] MEDS ORDERED: POTASSIUM CHLORIDE LIQ 20 MEQ UDC PO PRN (06:23)
[2021-09-07] MEDS ORDERED: POTASSIUM CHL 60 MEQ/NS 0.45% 500 ML IV PRN (06:23)
[2021-09-07] MEDS ORDERED: POTASSIUM CHL 40 MEQ/NS 0.45% 500 ML IV PRN (06:23)
[2021-09-07] MEDS ORDERED: MICRO K EXTEN CAP 10 MEQ PO PRN (06:23)
[2021-09-07] MEDS ORDERED: K-RIDER 10 MEQ/NS 100 ML 10 MEQ/100 ML BAG IV PRN (06:23)
[2021-09-07] MEDS ORDERED: MAGNESIUM SULFATE 1 GRAM/100 mL PREMIX 1 G/100 ML BAG IV PRN (06:23)
[2021-09-07] MEDS: ULTRAM PO PRN ×2 (07:41→21:00)
[2021-09-07] MEDS: PROTONIX INJ 40 MG VIAL IVP SCH ×2 (08:24→21:11)
--- NOTE | 2021-09-07 10:13 | DR.PROGNOT ---
Hospital Progress Notes - Progress Note for Day of: Progress Note Date: 09/07/21 - Chief Complaint Chief Complaint: no abdominal pain .. no active bleeding but Hgb id 7.2.. MARIA DEL CARMEN/Creat 35/0.8 . afebrile .. - Past Medical Family Social History Past Med/Fam/Surg Hx: No changes since H&P Allergies: Allergies alprazolam [From Xanax] Allergy (Verified 11/17/20 08:21) diphenhydramine [From Benadryl] Allergy (Verified 11/17/20 08:21) ketorolac [From Toradol] Allergy (Verified 11/17/20 08:21) lorazepam [From Ativan] Allergy (Verified 11/17/20 08:21) morphine Allergy (Verified 11/17/20 08:21) Penicillins Allergy (Verified 11/17/20 08:21) - Review Of Systems ROS: No change since H&P - Vital Signs Vital Signs: Temperature 97.7 F Pulse Rate [Left Brachial] 87 Pulse Rate 92 Respiratory Rate 16 Blood Pressure [Left Arm] 147/63 Blood Pressure [Right Arm] 144/64 Blood Pressure [Left Arm] 132/60 Blood Pressure [Right Arm] 164/78 Blood Pressure [Left Arm] 159/67 Blood Pressure 141/65 O2 Sat by Pulse Oximetry 100 - Physical Exam Oriented: Normal Eyes: Normal Ear: Normal Nose: Normal Throat: Normal Respiratory: Normal Cardiovascular: Normal : Normal GI:Auscultation: Normal GI:Palpation: Normal GI: Tenderness: Other (PEG tube in place .. no bleeding through the tube .. ) Speech Pattern: Clear - Laboratory and Diagnostics Result Diagrams: 09/07/21 05:32 09/07/21 05:32 Labs: Laboratory WBC 10.6 X10^3/uL (3.6-10.0) H 09/07/21 05:32 RBC 2.14 X10^6/uL (4.7-6.0) L 09/07/21 05:32 Hgb 7.2 g/dL (13.5-18.0) L 09/07/21 05:32 Hct 20.5 % (42.0-54.0) L 09/07/21 05:32 MCV 95.5 fL (80.0-100.0) 09/07/21 05:32 MCH 33.6 pg (27.0-34.0) 09/07/21 05:32 MCHC 35.1 g/dL (33.0-35.0) H 09/07/21 05:32 RDW 13.4 % (11.6-16.5) 09/07/21 05:32 Plt Count 160 X10^3/uL (150.0-450.0) 09/07/21 05:32 MPV 9.2 fL (7.4-11.0) 09/07/21 05:32 Neut % (Auto) 82.5 % (42.0-75.0) H 09/07/21 05:32 Lymph % (Auto) 12.2 % (21.0-51.0) L 09/07/21 05:32 [place] % (Auto) 4.6 % (0.0-13.0) 09/07/21 05:32 Eos % (Auto) 0.3 % (0.9-2.9) L 09/07/21 05:32 Baso % (Auto) 0.4 % (0.2-1.0) 09/07/21 05:32 Neut # (Auto) 8.8 x10^3/uL (2.2-4.8) H 09/07/21 05:32 Lymph # (Auto) 1.3 X10^3/uL (1.3-2.9) 09/07/21 05:32 [place] # (Auto) 0.5 x10^3/uL (0.3-0.8) 09/07/21 05:32 Eos # (Auto) 0.0 x10^3/uL (0.0-0.2) 09/07/21 05:32 Baso # (Auto) 0.0 X10^3/uL (0.0-0.1) 09/07/21 05:32 Absolute Nucleated RBC 0.0 /100WBC 09/07/21 05:32 PT 13.2 SECONDS (11.8-14.3) 09/06/21 08:14 INR Target Range - 09/06/21 08:14 INR 1.05 (0.8-1.3) 09/06/21 08:14 APTT 29.7 SECONDS (22.9-36.5) 09/06/21 08:14 PTT Comment - 09/06/21 08:14 Sodium 144 mmol/L (136-145) 09/07/21 05:32 Corrected Sodium 145 mmol/L (136-145) 09/07/21 05:32 Potassium 3.3 mmol/L (3.5-5.1) L 09/07/21 05:32 Chloride 109 mmol/L (98-107) H 09/07/21 05:32 Carbon Dioxide 29.9 mmol/L (21-32) 09/07/21 05:32 BUN 35 mg/dL (7-18) H 09/07/21 05:32 Creatinine 0.83 mg/dL (0.70-1.30) 09/07/21 05:32 Est GFR (MDRD) Af Amer > 60 (>60) 09/07/21 05:32 Est GFR (MDRD) Non-Af > 60 (>60) 09/07/21 05:32 Glucose 141 mg/dL (65-99) H 09/07/21 05:32 Calcium 7.8 mg/dL (8.5-10.1) L 09/07/21 05:32 Corrected Calcium 9.1 mg/dL (8.5-10.1) 09/07/21 05:32 Magnesium 2.3 mg/dL (1.7-2.9) 09/07/21 05:32 Total Bilirubin 0.50 mg/dL (0.2-1.0) 09/07/21 05:32 AST 23 Units/L (15-37) 09/07/21 05:32 ALT 20 Units/L (12-78) 09/07/21 05:32 Alkaline Phosphatase 67 Units/L (46-116) 09/07/21 05:32 Total Protein 5.3 g/dL (6.4-8.2) L 09/07/21 05:32 Albumin 2.4 g/dL (3.4-5.0) L 09/07/21 05:32 Globulin 2.9 g/dL (2.5-4.5) 09/07/21 05:32 Albumin/Globulin Ratio 0.8 Ratio (1.1-2.1) L 09/07/21 05:32 Amylase 18 Units/L (25-115) L 09/07/21 05:32 Lipase 41 Units/L (73-393) L 09/07/21 05:32 Specimen Type Clean catch urine 09/06/21 19:33 Urine Color Yellow (YELLOW) 09/06/21 19: Urine Appearance Clear (CLEAR) 09/06/21 19:33 Urine pH 7.0 (5.0 - 8.0) 09/06/21 19:33 Ur Specific [place] 1.010 (1.000-1.030) 09/06/21 19:33 Urine Protein 1+ (NEGATIVE) 09/06/21 19:33 Urine Glucose (UA) Negative (NEGATIVE) 09/06/21 19: Urine Ketones Negative (NEGATIVE) 09/06/21 19: Urine Occult Blood Negative (NEGATIVE) 09/06/21 19: Urine Nitrite Negative (NEGATIVE) 09/06/21 19: Urine Bilirubin Negative (NEGATIVE) 09/06/21 19:33 Urine Urobilinogen Normal (NORMAL) 09/06/21 19:33 Ur Leukocyte Esterase Negative (NEGATIVE) 09/06/21 19:33 Urine RBC 0-2 /HPF (0-3) 09/06/21 19:33 Urine WBC 0-2 /HPF (0-5) 09/06/21 19:33 Ur Squamous Epith Cells Negative /HPF (NEGATIVE) 09/06/21 19:33 Urine Bacteria Negative /HPF (NEGATIVE) 09/06/21 19:33 Urine Mucus Few /HPF (NEGATIVE) 09/06/21 19:33 Ur Culture Indicated? No/not indicated 09/06/21 19:33 SARS CoV-2 RNA Rapid JOSHUA Negative (NEGATIVE) 09/06/21 09:35 Blood Type O POSITIVE 09/06/21 08:14 Antibody Screen Negative 09/06/21 08:14 - Assessment and Plan 1: bleeding gastric ulcer . anemia . feeding tube dependent . h/o head and neck Cancer . to start tube feeding , repeat CBC .. same ulcer treatment .. - Problem Patient Problems: Patient Problems GI bleed (Acute) K92.2
[2021-09-08] MEDS: D5 1/2 NS 1,000 ML 1,000 ML IV SCH ×2 (04:11→11:00)
[2021-09-08 07:53] VITALS: BP 181/75
[2021-09-08] MEDS: PROTONIX INJ 40 MG VIAL IVP SCH (09:22)
[2021-09-08 09:50] LABS: HEMATOCRIT 21.1 % (42.0-54.0); HEMOGLOBIN 7.2 g/dL (13.5-18.0)
== END 2021-09-08 14:00 | disposition home health service (06) ==
LOC: MED/SURG 07:30 → ER 07:30 → MED/SURG 10:40
PROVIDERS: ADMIT Surgery; ATTEND Surgery
DX: I10 Essential (primary) hypertension; D64.89 Other specified anemias; R10.84 Generalized abdominal pain; R13.13 Dysphagia, pharyngeal phase; K92.2 Gastrointestinal hemorrhage, unspecified; K94.23 Gastrostomy malfunction; R26.89 Other abnormalities of gait and mobility; K21.9 Gastro-esophageal reflux disease without esophagitis; Z20.822 Contact with and (suspected) exposure to COVID-19; Z85.819 Personal history of malignant neoplasm of unspecified site of lip, oral cavity, and pharynx; Z87.19 Personal history of other diseases of the digestive system; E03.8 Other specified hypothyroidism

== ENCOUNTER 2021-12-28 16:52 | Inpatient (IN) ==
[2021-12-28] MEDS ORDERED: PROTONIX INJ 40 MG VIAL ONE (17:14)
[2021-12-28] MEDS ORDERED: NS 500 ML IV 500 ML IV ONE ×2 (17:14→17:16)
[2021-12-28] MEDS ORDERED: PROTONIX INJ 40 MG VIAL IVP ONE (17:16)
--- NOTE | 2021-12-28 17:20 | DR.GENAD ---
HPI Time Seen Time Seen by Provider: 12/28/21 17:05 PCP Primary Care Physician: Daniels Complaint/Symptoms Chief Complaint Doctors Comments: 89 y/o male brought in by his daughter for possible upper GI bleeding. Pt had outpatient labs yesterday, Hgb low at 7.4. Has had PUD, chronic peg tube, h/o esophageal ca. Pt states his stools have been black past few days. Has had some lightheadedness with standing. Denies chest pain, dyspnea, abdominal pain, fever or chills. Has had upper GI bleeding in the past. Not on blood thinning medications. Chief Complaint:: Daughter states pt had labs ordered by PCP yesterday and his hgb is 7.4. She states he has a history of bleeding ulcers and she wants him checked for that. COVID-19 Coronavirus risk:travel/contact w/high risk person: No Has patient experienced Coronavirus symptoms: No Nurses notes reviewed Nurses Notes Review: Yes Source History Provided: Patient and Family Member Mode of Arrival Mode of Arrival: Wheelchair Timing Onset of Chief Complaint: 12/28/21 PMH PMH Past Medical History: Yes Past Medical History: Anemia, Anxiety, GERD, Hypertension, Hypothyroidism, Kidney Stones and PUD Past Medical History Comment: h/o throat cancer Past Surgical History: Yes Surgical History: Ortho Surgery and Other (PEG tube) Family History History of Family Medical Conditions: Yes Family Medical History: Hypertension Social History Does any household member use tobacco: No Alcohol Use: None Do you use any recreational Drugs:: No Lives With: Family Lives Where: Home Travel Risk Coronavirus risk:travel/contact w/high risk person: No Has patient experienced Coronavirus symptoms: No Infectious screening In the last 2 months have you had wt loss of >10#?: NO Have you had fever, night sweats or hemotysis?: No Have you traveled outside the country in the last 6 months?: No Isolation: Standard ROS Review of Systems Constitutional: Malaise and Weakness Eyes: No Symptoms Reported ENTM: No Symptoms Reported Respiratoy: No Symptoms Reported Cardiovascular: No Symptoms Reported Gastrointestinal/Abdominal: Other (black stool) Genitourinary: No Symptoms Reported Neurological: Weakness and Dizziness Musculoskeletal: No Symptoms Reported Integumentary: No Symptoms Reported Psychiatric: No Symptoms Reported All Other Systems: Reviewed and Negative PE Vital Signs Vitals: Temperature 98.3 F Pulse Rate 70 Respiratory Rate 20 Blood Pressure [Left Arm] 131/60 Blood Pressure [Right Arm] 144/64 Blood Pressure [Left Arm] 132/60 Blood Pressure [Right Arm] 164/78 Blood Pressure [Left Arm] 159/67 Blood Pressure 143/66 O2 Sat by Pulse Oximetry 98 General Limitations: No Limitations General Appearance: Alert and In No Apparent Distress Eyes Eye exam: Normal Appearance ENT ENT Exam: Normal Exam and Mucous Membranes Moist Mouth Exam: Normal Inspection Neck Neck Exam: Normal Inspection Chest Chest Inspection: Normal Inspection Respiratory Respiratory Exam: Normal Lung Sounds Bilat; negative Accessory Muscle Use or Respiratory Distress Respiratory Exam: Bilateral: Clear to Auscultation Cardiovascular Cardiovascular Exam: Regular Rate, Normal Rhythm and Normal Heart Sounds Abdominal Exam Abdominal Exam: Normal Inspection, Normal Bowel Sounds and Soft; negative Tenderness Extremities Extremities Exam: Normal Inspection Back Back Exam: Normal Inspection; negative Tenderness Neurologic Neurological Exam: Alert and CN II-XII Intact; negative Motor Sensory Deficit Skin Skin Exam: Warm and Dry Other Exam Other Exam: Rectal - + black stool present. COURSE Treatment Treatment: 89 y/o male with black stools x few days, + h/o PUD in the past, has a chronic PEG tube. Clinically with melena. Vital signs stable at present. W/u initiated. Given IV fluids, IV protonix. 0651 - Hgb 7.4, stool heme +. Chemistries overall acceptable. Pt deserves admission for further observation, possible EGD. Discussed with Dr Peterson, covering, will admit. Requested to transfuse [address] Kimbrough, he has scoped him before. He is going OOT tomorrow, but will discuss with Dr Peterson. Pt remaining stable here. ROR Labs Reviewed Laboratory Results Reviewed?: Yes Result Diagrams: 12/28/21 17:20 12/28/21 17:20 Laboratory: WBC 8.3 X10^3/uL (3.6-10.0) 12/28/21 17:20 RBC 2.47 X10^6/uL (4.7-6.0) L 12/28/21 17:20 Hgb 7.2 g/dL (13.5-18.0) L 12/28/21 17:20 Hct 21.6 % (42.0-54.0) L 12/28/21 17:20 MCV 87.5 fL (80.0-100.0) 12/28/21 17:20 MCH 29.1 pg (27.0-34.0) 12/28/21 17:20 MCHC 33.2 g/dL (33.0-35.0) 12/28/21 17:20 RDW 18.5 % (11.6-16.5) H 12/28/21 17:20 Plt Count 253 X10^3/uL (150.0-450.0) 12/28/21 17:20 MPV 8.4 fL (7.4-11.0) 12/28/21 17:20 Neut % (Auto) 77.2 % (42.0-75.0) H 12/28/21 17:20 Lymph % (Auto) 14.0 % (21.0-51.0) L 12/28/21 17:20 [place] % (Auto) 6.7 % (0.0-13.0) 12/28/21 17:20 Eos % (Auto) 1.3 % (0.9-2.9) 12/28/21 17:20 Baso % (Auto) 0.8 % (0.2-1.0) 12/28/21 17:20 Neut # (Auto) 6.4 x10^3/uL (2.2-4.8) H 12/28/21 17:20 Lymph # (Auto) 1.2 X10^3/uL (1.3-2.9) L 12/28/21 17:20 [place] # (Auto) 0.6 x10^3/uL (0.3-0.8) 12/28/21 17:20 Eos # (Auto) 0.1 x10^3/uL (0.0-0.2) 12/28/21 17:20 Baso # (Auto) 0.1 X10^3/uL (0.0-0.1) 12/28/21 17:20 Absolute Nucleated RBC 0.0 /100WBC 12/28/21 17:20 PT 13.0 SECONDS (11.8-14.3) 12/28/21 17:20 INR Target Range - 12/28/21 17:20 INR 1.01 (0.8-1.3) 12/28/21 17:20 APTT 25.1 SECONDS (22.9-36.5) 12/28/21 17:20 PTT Comment - 12/28/21 17:20 Sodium 142 mmol/L (136-145) 12/28/21 17:20 Corrected Sodium TNP 12/28/21 17:20 Potassium 4.6 mmol/L (3.5-5.1) 12/28/21 17:20 Chloride 107 mmol/L (98-107) 12/28/21 17:20 Carbon Dioxide 35.1 mmol/L (21-32) H 12/28/21 17:20 BUN 30 mg/dL (7-18) H 12/28/21 17:20 Creatinine 1.01 mg/dL (0.70-1.30) 12/28/21 17:20 Est GFR (MDRD) Af Amer > 60 (>60) 12/28/21 17:20 Est GFR (MDRD) Non-Af > 60 (>60) 12/28/21 17:20 Glucose 103 mg/dL (65-99) H 12/28/21 17:20 Calcium 9.0 mg/dL (8.5-10.1) 12/28/21 17:20 Corrected Calcium 10.0 mg/dL (8.5-10.1) 12/28/21 17:20 Total Bilirubin 0.40 mg/dL (0.2-1.0) 12/28/21 17:20 AST 23 Units/L (15-37) 12/28/21 17:20 ALT 25 Units/L (12-78) 12/28/21 17:20 Alkaline Phosphatase 88 Units/L (46-116) 12/28/21 17:20 Total Protein 6.0 g/dL (6.4-8.2) L 12/28/21 17:20 Albumin 2.8 g/dL (3.4-5.0) L 12/28/21 17:20 Globulin 3.2 g/dL (2.5-4.5) 12/28/21 17:20 Albumin/Globulin Ratio 0.9 Ratio (1.1-2.1) L 12/28/21 17:20 Stool Description Solid black 12/28/21 17:25 Stl Occult Blood (IFOB) Positive (NEGATIVE) A 06/21/22 17:25 Opioid Opioid Risk Tool Age (Feng box if 16-45): No History of Preadolescent Sexual Abuse: No Total: 0 Total Score Risk Category: Low Risk Copyright: Shin SANCHES predicting aberrant behaviors Diagnosis Discharge Problem: Acute upper GI bleeding, Anemia
[2021-12-28 17:39] LABS: BASOPHILS # (AUTO) 0.1 X10^3/uL (0.0-0.1); BASOPHILS % (AUTO) 0.8 % (0.2-1.0); EOSINOPHILS # (AUTO) 0.1 x10^3/uL (0.0-0.2); EOSINOPHILS % (AUTO) 1.3 % (0.9-2.9); HEMATOCRIT 21.6 % (42.0-54.0); HEMOGLOBIN 7.2 g/dL (13.5-18.0); LYMPHOCYTES # (AUTO) 1.2 X10^3/uL (1.3-2.9); MEAN CORPUSCULAR HEMOGLOBIN 29.1 pg (27.0-34.0); MEAN CORPUSCULAR HGB CONC 33.2 g/dL (33.0-35.0); MEAN CORPUSCULAR VOLUME 87.5 fL (80.0-100.0); MEAN PLATELET VOLUME 8.4 fL (7.4-11.0); MONOCYTES # (AUTO) 0.6 x10^3/uL (0.3-0.8); MONOCYTES % (AUTO) 6.7 % (0.0-13.0); NEUTROPHILS # (AUTO) 6.4 x10^3/uL (2.2-4.8); NEUTROPHILS % (AUTO) 77.2 % (42.0-75.0); RED BLOOD COUNT 2.47 X10^6/uL (4.7-6.0); RED CELL DISTRIBUTION WIDTH 18.5 % (11.6-16.5); WHITE BLOOD COUNT 8.3 X10^3/uL (3.6-10.0)
[2021-12-28 18:00] LABS: ALANINE AMINOTRANSFERASE 25 Units/L (12-78); ALBUMIN 2.8 g/dL (3.4-5.0); ALKALINE PHOSPHATASE 88 Units/L (46-116); ASPARTATE AMINO TRANSFERASE 23 Units/L (15-37); BLOOD UREA NITROGEN 30 mg/dL (7-18); CARBON DIOXIDE 35.1 mmol/L (21-32); CHLORIDE 107 mmol/L (98-107); CREATININE 1.01 mg/dL (0.70-1.30); SODIUM 142 mmol/L (136-145); eGFR NON BLACK RACES > 60 (>60)
[2021-12-28] MEDS ORDERED: ZOFRAN INJ 4 MG VIAL IVP PRN (21:29)
[2021-12-28] MEDS ORDERED: NS 250 ML IV 250 ML IV ONE (22:05)
[2021-12-29] MEDS: CARAFATE ORAL SUSP PO SCH ×5 (00:36→21:25)
[2021-12-29] MEDS: D5 NS 1,000 ML IV 1,000 ML IV SCH ×2 (01:00→12:51)
[2021-12-29 03:03] LABS: HEMATOCRIT 25.1 % (42.0-54.0); HEMOGLOBIN 8.5 g/dL (13.5-18.0)
[2021-12-29 05:15] LABS: BASOPHILS # (AUTO) 0.1 X10^3/uL (0.0-0.1); BASOPHILS % (AUTO) 0.6 % (0.2-1.0); EOSINOPHILS # (AUTO) 0.1 x10^3/uL (0.0-0.2); EOSINOPHILS % (AUTO) 1.4 % (0.9-2.9); HEMOGLOBIN 8.5 g/dL (13.5-18.0); LYMPHOCYTES # (AUTO) 1.1 X10^3/uL (1.3-2.9); LYMPHOCYTES % (AUTO) 13.5 % (21.0-51.0); MEAN CORPUSCULAR HEMOGLOBIN 29.1 pg (27.0-34.0); MEAN CORPUSCULAR HGB CONC 33.8 g/dL (33.0-35.0); MEAN CORPUSCULAR VOLUME 85.9 fL (80.0-100.0); MEAN PLATELET VOLUME 8.6 fL (7.4-11.0); MONOCYTES # (AUTO) 0.6 x10^3/uL (0.3-0.8); MONOCYTES % (AUTO) 6.7 % (0.0-13.0); NEUTROPHILS # (AUTO) 6.6 x10^3/uL (2.2-4.8); NEUTROPHILS % (AUTO) 77.8 % (42.0-75.0); RED BLOOD COUNT 2.92 X10^6/uL (4.7-6.0); RED CELL DISTRIBUTION WIDTH 18.1 % (11.6-16.5); WHITE BLOOD COUNT 8.5 X10^3/uL (3.6-10.0)
[2021-12-29 05:28] LABS: ALANINE AMINOTRANSFERASE 22 Units/L (12-78); ALBUMIN 2.7 g/dL (3.4-5.0); ALKALINE PHOSPHATASE 86 Units/L (46-116); ASPARTATE AMINO TRANSFERASE 23 Units/L (15-37); BLOOD UREA NITROGEN 25 mg/dL (7-18); CALCIUM 8.6 mg/dL (8.5-10.1); CARBON DIOXIDE 31.9 mmol/L (21-32); CHLORIDE 108 mmol/L (98-107); COR CA(FOR HYPOALB) 9.6 mg/dL (8.5-10.1); CREATININE 0.83 mg/dL (0.70-1.30); SODIUM 143 mmol/L (136-145); TOTAL PROTEIN 5.8 g/dL (6.4-8.2); eGFR NON BLACK RACES > 60 (>60)
[2021-12-29] MEDS: ULTRAM PEG PRN ×2 (08:58→17:41)
[2021-12-29] MEDS: PROTONIX INJ 40 MG VIAL IVP SCH (08:58)
--- NOTE | 2021-12-29 09:32 | DR.H&P ---
H&P History & Physical for Day of: H&P Date: 12/29/21 Chief Complaint Chief Complaint: Dark tarry stools Lightheaded Allergies Allergies Allergy/AdvReac Type Severity Reaction Status Date / Time alprazolam [From Xanax] Allergy Verified 11/17/20 08:21 diphenhydramine Allergy Verified 11/17/20 08:21 [From Benadryl] ketorolac [From Toradol] Allergy Verified 11/17/20 08:21 lorazepam [From Ativan] Allergy Verified 11/17/20 08:21 morphine Allergy Verified 11/17/20 08:21 Penicillins Allergy Verified 11/17/20 08:21 History of Present Illness History of Present Illness: Pt is a 89 year old male past medical history of gastric ulcer, and permanent PEG tube placement in due to neck dissection of esophageal cancer. He presented to ED with his daughter for possible upper GI bleeding. Pt had outpatient labs and was told Hgb 7.4. She also reports that his stools have been black and tarry for past few days. Reports lightheadedness with standing.Denies chest pain, dyspnea, abdominal pain, fever or chills. Has had upper GI bleeding in the past. Not on anti-coagulation medications. Labs/imaging: Wbc 8.3, Hgb 7.2, Plt 253, Na 142, K 4.6, Creatinine 1.01, Glucose 103. Pt was admitted for GI bleed. Started on IVF D5% NS@80 ml/h, IV Protonix 4 0mg, Carafate ACHS, and home medications were resumed. Will consult GI-Dr Hutchins, ordered pt to be NPO after midnight. One unit packed red blood cells ordered to be transfused due to symptomatic anemia. Trend hemoglobin. Repeat CBC at 1800. Will continue to monitor and follow up labs. Past Medical History Past Medical History: Anemia, Anxiety, GERD, Hypertension, Hypothyroidism, Kidney Stones and PUD Additional Medical History: LARYNX CANCER, CARDIAC ARRHYTHMIA, GERD, HX KIDNEY STONES Past Surgical History Surgical History: Ortho Surgery and Other Additional Surgical History: HERNIA REPAIR, RIGHT KNEE REPLACEMENT, RADICAL NECK SURGERY D/T THROAT CANCER Family History Family Medical History: Hypertension Social History Does patient currently use any type of tobacco product: No Have you used tobacco products in the last 12 months: No Type of Tobacco Use: None Does any household member use tobacco: No Alcohol Use: None Drug Use: None Medications Home Medications: alprazolam [From Xanax] Allergy (Verified 11/17/20 08:21) diphenhydramine [From Benadryl] Allergy (Verified 11/17/20 08:21) ketorolac [From Toradol] Allergy (Verified 11/17/20 08:21) lorazepam [From Ativan] Allergy (Verified 11/17/20 08:21) morphine Allergy (Verified 11/17/20 08:21) Penicillins Allergy (Verified 11/17/20 08:21) CONTINUE taking the following medications acetaminophen 325 mg tablet (Tylenol) 650 mg PO QHS 12/28/21 [History] levothyroxine 112 mcg tablet 112 mcg PO QAM 12/28/21 [History] polyethylene glycol 3350 17 gram oral powder packet (Miralax) 17 g PO DAILY PRN 12/28/21 [History] tramadol 50 mg tablet 100 tab PO QHS 12/28/21 [History] Labs Result Diagrams: 12/30/21 06:20 12/30/21 06:20 Labs: Laboratory WBC 8.5 X10^3/uL (3.6-10.0) 12/29/21 04:23 RBC 2.92 X10^6/uL (4.7-6.0) L 12/29/21 04:23 Hgb 8.5 g/dL (13.5-18.0) L 12/29/21 04:23 Hct 25.0 % (42.0-54.0) L 12/29/21 04:23 MCV 85.9 fL (80.0-100.0) 12/29/21 04:23 MCH 29.1 pg (27.0-34.0) 12/29/21 04:23 MCHC 33.8 g/dL (33.0-35.0) 12/29/21 04:23 RDW 18.1 % (11.6-16.5) H 12/29/21 04:23 Plt Count 238 X10^3/uL (150.0-450.0) 12/29/21 04:23 MPV 8.6 fL (7.4-11.0) 12/29/21 04:23 Neut % (Auto) 77.8 % (42.0-75.0) H 12/29/21 04:23 Lymph % (Auto) 13.5 % (21.0-51.0) L 12/29/21 04:23 Cochran % (Auto) 6.7 % (0.0-13.0) 12/29/21 04:23 Eos % (Auto) 1.4 % (0.9-2.9) 12/29/21 04:23 Baso % (Auto) 0.6 % (0.2-1.0) 12/29/21 04:23 Neut # (Auto) 6.6 x10^3/uL (2.2-4.8) H 12/29/21 04:23 Lymph # (Auto) 1.1 X10^3/uL (1.3-2.9) L 12/29/21 04:23 Cochran # (Auto) 0.6 x10^3/uL (0.3-0.8) 12/29/21 04:23 Eos # (Auto) 0.1 x10^3/uL (0.0-0.2) 12/29/21 04:23 Baso # (Auto) 0.1 X10^3/uL (0.0-0.1) 12/29/21 04:23 Absolute Nucleated RBC 0.1 /100WBC 12/29/21 04:23 PT 13.0 SECONDS (11.8-14.3) 12/28/21 17:20 INR Target Range - 12/28/21 17:20 INR 1.01 (0.8-1.3) 12/28/21 17:20 APTT 25.1 SECONDS (22.9-36.5) 12/28/21 17:20 PTT Comment - 12/28/21 17:20 Sodium 143 mmol/L (136-145) 12/29/21 04:23 Corrected Sodium TNP 12/29/21 04:23 Potassium 3.9 mmol/L (3.5-5.1) 12/29/21 04:23 Chloride 108 mmol/L (98-107) H 12/29/21 04:23 Carbon Dioxide 31.9 mmol/L (21-32) 12/29/21 04:23 BUN 25 mg/dL (7-18) H 12/29/21 04:23 Creatinine 0.83 mg/dL (0.70-1.30) 12/29/21 04:23 Est GFR (MDRD) Af Amer > 60 (>60) 12/29/21 04:23 Est GFR (MDRD) Non-Af > 60 (>60) 12/29/21 04:23 Glucose 99 mg/dL (65-99) 12/29/21 04:23 Calcium 8.6 mg/dL (8.5-10.1) 12/29/21 04:23 Corrected Calcium 9.6 mg/dL (8.5-10.1) 12/29/21 04:23 Total Bilirubin 2.50 mg/dL (0.2-1.0) H 12/29/21 04:23 AST 23 Units/L (15-37) 12/29/21 04:23 ALT 22 Units/L (12-78) 12/29/21 04:23 Alkaline Phosphatase 86 Units/L (46-116) 12/29/21 04:23 Total Protein 5.8 g/dL (6.4-8.2) L 12/29/21 04:23 Albumin 2.7 g/dL (3.4-5.0) L 12/29/21 04:23 Globulin 3.1 g/dL (2.5-4.5) 12/29/21 04:23 Albumin/Globulin Ratio 0.9 Ratio (1.1-2.1) L 12/29/21 04:23 Stool Description Solid black 12/28/21 17:25 Stl Occult Blood (IFOB) Positive (NEGATIVE) A 12/28/21 17:25 SARS-CoV-2 (PCR) Negative (NEGATIVE) 12/28/21 18:58 Influenza Type A (PCR) Negative (NEGATIVE) 12/28/21 18:58 Influenza Type B (PCR) Negative (NEGATIVE) 12/28/21 18:58 RSV (PCR) Negative (NEGATIVE) 12/28/21 18:58 Blood Type O POSITIVE 12/28/21 17:20 Antibody Screen Negative 12/28/21 17:20 Crossmatch See Detail 12/28/21 17:20 Review of Systems Constitutional: No Symptoms Reported Eyes: No Symptoms Reported ENT: No Symptoms Reported Respiratory: No Symptoms Reported Cardiovascular: No Symptoms Reported Gastrointestinal: Melena Genitourinary: No Symptoms Reported Musculoskeletal: No Symptoms Reported Skin: No Symptoms Reported Neurological: No Symptoms Reported Physical Exam Vital Signs: Temperature 98.3 F Pulse Rate 81 Respiratory Rate 22 Blood Pressure [Left Arm] 131/60 Blood Pressure [Right Arm] 144/64 Blood Pressure [Left Arm] 132/60 Blood Pressure [Right Arm] 164/78 Blood Pressure [Left Arm] 159/67 Blood Pressure 135/78 O2 Sat by Pulse Oximetry 99 Oriented: Normal Eyes: Normal Ear: Normal Nose: Normal Throat: Normal Respiratory: Clear Throughout Cardiovascular: Normal : Normal Auscultation: Bowel Sounds: Normal Palpation: Normal Tenderness: Normal and Other (PEG tube) Skin: Normal Musculoskeletal: Normal Psychiatric: Normal Mood Description: Calm and Appropriate Affect: Normal Speech Pattern: Clear and Appropriate Assessment/Plan (1) GI (gastrointestinal bleed): Qualifiers: GI bleed type/associated pathology: unspecified gastrointestinal hemorrhage type Qualified Code(s): K92.2 - Gastrointestinal hemorrhage, unspecified Status: Acute (2) Symptomatic anemia: Status: Acute Review H&P Reviewed: Yes Patient was examined?: Yes
[2021-12-29 10:01] VITALS: BMI 21.2
[2021-12-29 17:27] LABS: HEMATOCRIT 25.2 % (42.0-54.0); HEMOGLOBIN 8.5 g/dL (13.5-18.0)
[2021-12-30] MEDS: D5 NS 1,000 ML IV 1,000 ML IV SCH ×4 (02:47→23:52)
[2021-12-30 06:30] LABS: BASOPHILS % (AUTO) 0.4 % (0.2-1.0); EOSINOPHILS # (AUTO) 0.1 x10^3/uL (0.0-0.2); EOSINOPHILS % (AUTO) 1.3 % (0.9-2.9); HEMATOCRIT 25.5 % (42.0-54.0); HEMOGLOBIN 8.7 g/dL (13.5-18.0); LYMPHOCYTES % (AUTO) 11.5 % (21.0-51.0); MEAN CORPUSCULAR HEMOGLOBIN 29.1 pg (27.0-34.0); MEAN CORPUSCULAR HGB CONC 33.9 g/dL (33.0-35.0); MEAN CORPUSCULAR VOLUME 85.6 fL (80.0-100.0); MEAN PLATELET VOLUME 8.2 fL (7.4-11.0); MONOCYTES # (AUTO) 0.7 x10^3/uL (0.3-0.8); MONOCYTES % (AUTO) 8.4 % (0.0-13.0); NEUTROPHILS # (AUTO) 6.8 x10^3/uL (2.2-4.8); NEUTROPHILS % (AUTO) 78.4 % (42.0-75.0); RED BLOOD COUNT 2.98 X10^6/uL (4.7-6.0); RED CELL DISTRIBUTION WIDTH 17.6 % (11.6-16.5); WHITE BLOOD COUNT 8.6 X10^3/uL (3.6-10.0)
[2021-12-30] MEDS: CARAFATE ORAL SUSP PO SCH ×4 (06:36→20:24)
[2021-12-30 06:44] LABS: ALANINE AMINOTRANSFERASE 21 Units/L (12-78); ALBUMIN 2.6 g/dL (3.4-5.0); ALKALINE PHOSPHATASE 81 Units/L (46-116); ASPARTATE AMINO TRANSFERASE 28 Units/L (15-37); BLOOD UREA NITROGEN 15 mg/dL (7-18); CALCIUM 8.1 mg/dL (8.5-10.1); CARBON DIOXIDE 26.3 mmol/L (21-32); CHLORIDE 108 mmol/L (98-107); COR CA(FOR HYPOALB) 9.2 mg/dL (8.5-10.1); CREATININE 0.77 mg/dL (0.70-1.30); SODIUM 141 mmol/L (136-145); TOTAL PROTEIN 5.9 g/dL (6.4-8.2); eGFR NON BLACK RACES > 60 (>60)
[2021-12-30] MEDS: PROTONIX INJ 40 MG VIAL IVP SCH (10:28)
--- NOTE | 2021-12-30 11:22 | PCM.PROG ---
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 This morning patient resting in bed. Per daughter, has been more agitated. He is scheduled for EGD this morning by GI-Dr Hutchins. Labs/imaging: Wbc 8.6, Hgb 8.7, Plt 228, Na 141, K 3.5, Creatinine 0.77, Glucose 98. Pt is currently on IVF D5% NS@80 ml/h, IV Protonix 40mg, Carafate ACHS, and home medications. He has received a total of one unit packed red blood cells. Hemoglobin has responded and stabilized. Will continue to monitor and follow up labs and recommendations. Past Medical Family Social History Allergies: Allergies alprazolam [From Xanax] Allergy (Verified 11/17/20 08:21) diphenhydramine [From Benadryl] Allergy (Verified 11/17/20 08:21) ketorolac [From Toradol] Allergy (Verified 11/17/20 08:21) lorazepam [From Ativan] Allergy (Verified 11/17/20 08:21) morphine Allergy (Verified 11/17/20 08:21) Penicillins Allergy (Verified 11/17/20 08:21) Vital Signs and I&O's Vital Signs: Temperature 98.4 F Pulse Rate 67 Respiratory Rate 18 Blood Pressure [Left Arm] 131/60 Blood Pressure [Right Arm] 144/64 Blood Pressure [Left Arm] 132/60 Blood Pressure [Right Arm] 164/78 Blood Pressure [Left Arm] 159/67 Blood Pressure 146/69 O2 Sat by Pulse Oximetry 99 Intake and Output: Intake & Output 12/27/21 12/28/21 12/29/21 12/30/21 23:59 23:59 23:59 23:59 Intake Total 337 / 337 1157 / 1157 0 / 0 Output Total 400 / 400 180 / 180 Balance -63 / -63 977 / 977 0 / 0 Physical Exam Oriented: Normal Eyes: Normal Ear: Normal Nose: Normal Throat: Normal Cardiovascular: Normal : Normal Auscultation: Bowel Sounds: Normal Tenderness: Normal and Other (PEG tube) Skin: Normal Musculoskeletal: Normal Psychiatric: Normal Mood Description: Calm and Appropriate Affect: Normal Speech Pattern: Clear and Appropriate Laboratory and Diagnostics Result Diagrams: 12/30/21 06:20 12/30/21 06:20 Labs: Laboratory WBC 8.6 X10^3/uL (3.6-10.0) 12/30/21 06:20 RBC 2.98 X10^6/uL (4.7-6.0) L 12/30/21 06:20 Hgb 8.7 g/dL (13.5-18.0) L 12/30/21 06:20 Hct 25.5 % (42.0-54.0) L 12/30/21 06:20 MCV 85.6 fL (80.0-100.0) 12/30/21 06:20 MCH 29.1 pg (27.0-34.0) 12/30/21 06:20 MCHC 33.9 g/dL (33.0-35.0) 12/30/21 06:20 RDW 17.6 % (11.6-16.5) H 12/30/21 06:20 Plt Count 228 X10^3/uL (150.0-450.0) 12/30/21 06:20 MPV 8.2 fL (7.4-11.0) 12/30/21 06:20 Neut % (Auto) 78.4 % (42.0-75.0) H 12/30/21 06:20 Lymph % (Auto) 11.5 % (21.0-51.0) L 12/30/21 06:20 Cassia % (Auto) 8.4 % (0.0-13.0) 12/30/21 06:20 Eos % (Auto) 1.3 % (0.9-2.9) 12/30/21 06:20 Baso % (Auto) 0.4 % (0.2-1.0) 12/30/21 06:20 Neut # (Auto) 6.8 x10^3/uL (2.2-4.8) H 12/30/21 06:20 Lymph # (Auto) 1.0 X10^3/uL (1.3-2.9) L 12/30/21 06:20 Cassia # (Auto) 0.7 x10^3/uL (0.3-0.8) 12/30/21 06:20 Eos # (Auto) 0.1 x10^3/uL (0.0-0.2) 12/30/21 06:20 Baso # (Auto) 0.0 X10^3/uL (0.0-0.1) 12/30/21 06:20 Absolute Nucleated RBC 0.1 /100WBC 12/30/21 06:20 PT 13.0 SECONDS (11.8-14.3) 12/28/21 17:20 INR Target Range - 12/28/21 17:20 INR 1.01 (0.8-1.3) 12/28/21 17:20 APTT 25.1 SECONDS (22.9-36.5) 12/28/21 17:20 PTT Comment - 12/28/21 17:20 Sodium 141 mmol/L (136-145) 12/30/21 06:20 Corrected Sodium TNP 12/30/21 06:20 Potassium 3.5 mmol/L (3.5-5.1) 12/30/21 06:20 Chloride 108 mmol/L (98-107) H 12/30/21 06:20 Carbon Dioxide 26.3 mmol/L (21-32) 12/30/21 06:20 BUN 15 mg/dL (7-18) 12/30/21 06:20 Creatinine 0.77 mg/dL (0.70-1.30) 12/30/21 06:20 Est GFR (MDRD) Af Amer > 60 (>60) 12/30/21 06:20 Est GFR (MDRD) Non-Af > 60 (>60) 12/30/21 06:20 Glucose 98 mg/dL (65-99) 12/30/21 06:20 POC Glucose (mg/dL) 118 mg/dL (65-99) H 12/29/21 10:52 Calcium 8.1 mg/dL (8.5-10.1) L 12/30/21 06:20 Corrected Calcium 9.2 mg/dL (8.5-10.1) 12/30/21 06:20 Total Bilirubin 1.10 mg/dL (0.2-1.0) H 12/30/21 06:20 AST 28 Units/L (15-37) 12/30/21 06:20 ALT 21 Units/L (12-78) 12/30/21 06:20 Alkaline Phosphatase 81 Units/L (46-116) 12/30/21 06:20 Total Protein 5.9 g/dL (6.4-8.2) L 12/30/21 06:20 Albumin 2.6 g/dL (3.4-5.0) L 12/30/21 06:20 Globulin 3.3 g/dL (2.5-4.5) 12/30/21 06:20 Albumin/Globulin Ratio 0.8 Ratio (1.1-2.1) L 12/30/21 06:20 Stool Description Solid black 12/28/21 17:25 Stl Occult Blood (IFOB) Positive (NEGATIVE) A 12/28/21 17:25 SARS-CoV-2 (PCR) Negative (NEGATIVE) 12/28/21 18:58 Influenza Type A (PCR) Negative (NEGATIVE) 12/28/21 18:58 Influenza Type B (PCR) Negative (NEGATIVE) 12/28/21 18:58 RSV (PCR) Negative (NEGATIVE) 12/28/21 18:58 Blood Type O POSITIVE 12/28/21 17:20 Antibody Screen Negative 12/28/21 17:20 Crossmatch See Detail 12/28/21 17:20 Plan (1) GI (gastrointestinal bleed): Status: Acute Qualifiers: GI bleed type/associated pathology: unspecified gastrointestinal hemorrhage type Qualified Code(s): K92.2 - Gastrointestinal hemorrhage, unspecified Plan: EGD today (2) Symptomatic anemia: Status: Acute
[2021-12-30] MEDS ORDERED: NS 500 ML IV 500 ML IV ONE (12:11)
[2021-12-30 12:21] LABS: BILIRUBIN,URINE NEGATIVE (NEGATIVE); BLOOD/HEMOGLOBIN,URINE 1+ (NEGATIVE); GLUCOSE, URINE NEGATIVE (NEGATIVE); KETONES,URINE NEGATIVE (NEGATIVE); LEUKOCYTE ESTERASE ,URINE NEGATIVE (NEGATIVE); NITRITES,URINE NEGATIVE (NEGATIVE); PROTEIN,URINE NEGATIVE (NEGATIVE); UROBILINOGEN,URINE NORMAL (NORMAL)
[2021-12-30 12:25] LABS: APPEARANCE,URINE CLEAR (CLEAR); COLOR,URINE PALE YELLOW (YELLOW)
[2021-12-30 12:47] LABS: BACTERIA,URINE TRACE /HPF (NEGATIVE); SQUAMOUS EPITHELIAL CELL,UR RARE /HPF (NEGATIVE); TRANSITIONAL EPI CELLS,URINE FEW /HPF (NEGATIVE)
[2021-12-30] MEDS ORDERED: DIPRIVAN VIAL 20 ML ONE (13:02)
[2021-12-30] MEDS ORDERED: EPHEDRINE SULFATE INJ ONE (13:23)
[2021-12-30] MEDS ORDERED: ROCEPHIN VIAL 1 GRAM 1 G in NS 100 ML IV 100 ML IV SCH (14:36)
[2021-12-30] MEDS: TYLENOL ELIXIR 325 MG UDC PO PRN ×2 (16:00→22:16)
[2021-12-30] MEDS: CIPRO IV 400 MG PREMIX* 400 MG/200 ML IV.SOLN. IV SCH ×2 (16:00→20:24)
[2021-12-30] MEDS: ULTRAM PEG PRN ×2 (17:27→23:53)
[2021-12-31] MEDS: D5 NS 1,000 ML IV 1,000 ML IV SCH (01:44)
[2021-12-31 04:55] LABS: BASOPHILS % (AUTO) 0.5 % (0.2-1.0); EOSINOPHILS # (AUTO) 0.1 x10^3/uL (0.0-0.2); EOSINOPHILS % (AUTO) 1.2 % (0.9-2.9); HEMATOCRIT 24.3 % (42.0-54.0); HEMOGLOBIN 8.1 g/dL (13.5-18.0); LYMPHOCYTES # (AUTO) 0.9 X10^3/uL (1.3-2.9); LYMPHOCYTES % (AUTO) 14.3 % (21.0-51.0); MEAN CORPUSCULAR HEMOGLOBIN 28.6 pg (27.0-34.0); MEAN CORPUSCULAR HGB CONC 33.2 g/dL (33.0-35.0); MEAN CORPUSCULAR VOLUME 86.2 fL (80.0-100.0); MEAN PLATELET VOLUME 8.4 fL (7.4-11.0); MONOCYTES # (AUTO) 0.7 x10^3/uL (0.3-0.8); NEUTROPHILS # (AUTO) 4.6 x10^3/uL (2.2-4.8); RED BLOOD COUNT 2.82 X10^6/uL (4.7-6.0); RED CELL DISTRIBUTION WIDTH 17.8 % (11.6-16.5); WHITE BLOOD COUNT 6.3 X10^3/uL (3.6-10.0)
[2021-12-31 05:14] LABS: ALANINE AMINOTRANSFERASE 21 Units/L (12-78); ALBUMIN 2.2 g/dL (3.4-5.0); ALKALINE PHOSPHATASE 73 Units/L (46-116); ASPARTATE AMINO TRANSFERASE 27 Units/L (15-37); BLOOD UREA NITROGEN 12 mg/dL (7-18); CALCIUM 7.9 mg/dL (8.5-10.1); CARBON DIOXIDE 26.5 mmol/L (21-32); CHLORIDE 109 mmol/L (98-107); COR CA(FOR HYPOALB) 9.3 mg/dL (8.5-10.1); CREATININE 0.75 mg/dL (0.70-1.30); SODIUM 140 mmol/L (136-145); TOTAL PROTEIN 5.1 g/dL (6.4-8.2); eGFR NON BLACK RACES > 60 (>60)
[2021-12-31] MEDS: CARAFATE ORAL SUSP PO SCH (05:56)
[2021-12-31] MEDS: ULTRAM PEG PRN (06:31)
[2021-12-31] MEDS ORDERED: NS 100 ML IV 100 ML with VENOFER 400 MG IV NR ×2 (09:00)
[2021-12-31] MEDS: CIPRO IV 400 MG PREMIX* 400 MG/200 ML IV.SOLN. IV SCH (09:22)
[2021-12-31] MEDS: PROTONIX INJ 40 MG VIAL IVP SCH (09:23)
[2021-12-31] MEDS ORDERED: FLOMAX PO SCH (10:00)
--- NOTE | 2021-12-31 11:54 | W.DIS.FURT ---
Summary of Discharge Discharge Summary of Date Date of Exam: 12/31/21 Admission Date Date of Admission: 12/28/21 Admission Diagnosis Patient Problems (Updated 12/29/21 @ 09:31 by Davy Peterson) Acute upper GI bleeding (Acute) K92.2 Anemia (Acute) D64.9 Hospital Course: Pt is a 89 year old male past medical history of gastric ulcer, and permanent PEG tube placement in due to neck dissection of esophageal cancer, admitted for upper GI bleed. His hospital/treatment course included: IVF D5% NS@80 ml/h, IV Protonix 40mg, Carafate ACHS, and home medications. For symptomatic anemia patient received one unit packed red blood cells and hemoglobin stabilized. 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 Pt was given iron infusion before discharge and will continue iron supplementation at home. Rx ciprofloxacin x 5 days for possible cystitis while awaiting culture results. He was discharged in stable condition. Instructed to follow up with GI and pcp in 1 week. Vital Signs: Vital Signs (72 hours) 12/28/21 16:52 12/28/21 17:34 12/28/21 17:45 Temperature 98.3 F Pulse Rate 95 H 78 74 Pulse Rate [Radial] Respiratory Rate 20 Blood Pressure 133/60 Blood Pressure [Left Arm] O2 Sat by Pulse Oximetry 97 99 99 Oxygen Delivery Method Room Air 12/28/21 18:00 12/28/21 18:00 12/28/21 18:15 Temperature Pulse Rate 70 71 Pulse Rate [Radial] Respiratory Rate Blood Pressure 143/66 Blood Pressure [Left Arm] O2 Sat by Pulse Oximetry 99 99 Oxygen Delivery Method 12/28/21 18:30 12/28/21 18:45 12/28/21 19:00 Temperature Pulse Rate 70 69 69 Pulse Rate [Radial] Respiratory Rate Blood Pressure Blood Pressure [Left Arm] O2 Sat by Pulse Oximetry 98 100 99 Oxygen Delivery Method 12/28/21 19:01 12/28/21 19:01 12/28/21 19:15 Temperature Pulse Rate 69 73 Pulse Rate [Radial] Respiratory Rate Blood Pressure 219/84 Blood Pressure [Left Arm] O2 Sat by Pulse Oximetry 97 97 Oxygen Delivery Method 12/28/21 19:30 12/28/21 19:45 12/28/21 20:00 Temperature Pulse Rate 75 75 Pulse Rate [Radial] Respiratory Rate Blood Pressure 152/66 Blood Pressure [Left Arm] O2 Sat by Pulse Oximetry 97 98 Oxygen Delivery Method 12/28/21 20:00 12/28/21 20:15 12/28/21 20:30 Temperature Pulse Rate 78 77 85 Pulse Rate [Radial] Respiratory Rate Blood Pressure Blood Pressure [Left Arm] O2 Sat by Pulse Oximetry 99 100 100 Oxygen Delivery Method 12/28/21 20:45 12/28/21 21:17 12/28/21 21:31 Temperature Pulse Rate 77 80 Pulse Rate [Radial] Respiratory Rate Blood Pressure 146/74 Blood Pressure [Left Arm] O2 Sat by Pulse Oximetry 97 98 Oxygen Delivery Method 12/28/21 21:31 12/28/21 21:45 12/28/21 22:00 Temperature 98.0 F Pulse Rate 79 79 Pulse Rate [Radial] Respiratory Rate Blood Pressure Blood Pressure [Left Arm] O2 Sat by Pulse Oximetry 81 L 97 100 Oxygen Delivery Method 12/28/21 22:01 12/28/21 22:01 12/28/21 22:41 Temperature Pulse Rate 79 Pulse Rate [Radial] Respiratory Rate Blood Pressure 129/60 Blood Pressure [Left Arm] O2 Sat by Pulse Oximetry 99 Oxygen Delivery Method Room Air 12/28/21 22:15 12/28/21 22:30 12/28/21 22:30 Temperature Pulse Rate 78 73 Pulse Rate [Radial] Respiratory Rate Blood Pressure 128/58 Blood Pressure [Left Arm] O2 Sat by Pulse Oximetry 99 97 Oxygen Delivery Method 12/28/21 22:45 12/28/21 22:47 12/28/21 22:47 Temperature Pulse Rate 78 Pulse Rate [Radial] Respiratory Rate Blood Pressure 159/65 Blood Pressure [Left Arm] O2 Sat by Pulse Oximetry 99 82 L Oxygen Delivery Method 12/28/21 22:59 12/28/21 23:01 12/28/21 23:20 Temperature 98.0 F Pulse Rate Pulse Rate [Radial] Respiratory Rate Blood Pressure 130/62 Blood Pressure [Left Arm] O2 Sat by Pulse Oximetry 82 L 82 L Oxygen Delivery Method 12/29/21 00:00 12/29/21 00:12 12/29/21 00:12 Temperature 98.2 F Pulse Rate 79 75 Pulse Rate [Radial] Respiratory Rate Blood Pressure 137/85 Blood Pressure [Left Arm] O2 Sat by Pulse Oximetry 98 99 Oxygen Delivery Method 12/29/21 01:01 12/29/21 02:00 12/29/21 03:00 Temperature 98.1 F 98.6 F Pulse Rate 79 79 Pulse Rate [Radial] Respiratory Rate 14 20 Blood Pressure 138/64 164/72 161/72 Blood Pressure [Left Arm] O2 Sat by Pulse Oximetry 99 98 Oxygen Delivery Method Room Air Room Air 12/29/21 04:00 12/29/21 01:40 12/29/21 05:00 Temperature 97.6 F Pulse Rate 78 75 Pulse Rate [Radial] Respiratory Rate 27 H 15 Blood Pressure 158/67 160/68 Blood Pressure [Left Arm] O2 Sat by Pulse Oximetry 100 100 Oxygen Delivery Method Room Air Room Air Room Air 12/29/21 06:00 12/29/21 07:40 12/29/21 08:00 Temperature Pulse Rate 77 77 83 Pulse Rate [Radial] Respiratory Rate 25 H 20 33 H Blood Pressure 132/71 Blood Pressure [Left Arm] O2 Sat by Pulse Oximetry 98 99 100 Oxygen Delivery Method Room Air 12/29/21 08:01 12/29/21 08:01 12/29/21 08:58 Temperature 98.3 F Pulse Rate 88 Pulse Rate [Radial] Respiratory Rate 27 H 18 Blood Pressure 133/69 Blood Pressure [Left Arm] O2 Sat by Pulse Oximetry 99 Oxygen Delivery Method 12/29/21 09:00 12/29/21 09:00 12/29/21 07:00 Temperature Pulse Rate 81 Pulse Rate [Radial] Respiratory Rate 22 Blood Pressure 135/78 Blood Pressure [Left Arm] O2 Sat by Pulse Oximetry 99 Oxygen Delivery Method Room Air 12/29/21 10:00 12/29/21 10:00 12/29/21 11:00 Temperature Pulse Rate 76 75 Pulse Rate [Radial] Respiratory Rate 17 19 Blood Pressure 145/68 Blood Pressure [Left Arm] O2 Sat by Pulse Oximetry 99 99 Oxygen Delivery Method 12/29/21 11:01 12/29/21 11:01 12/29/21 09:58 Temperature Pulse Rate 75 Pulse Rate [Radial] Respiratory Rate 19 18 Blood Pressure 139/63 Blood Pressure [Left Arm] O2 Sat by Pulse Oximetry 98 Oxygen Delivery Method 12/29/21 12:00 12/29/21 12:01 12/29/21 12:01 Temperature 98 F Pulse Rate 72 80 Pulse Rate [Radial] Respiratory Rate 31 H 36 H Blood Pressure 117/69 Blood Pressure [Left Arm] O2 Sat by Pulse Oximetry 99 95 Oxygen Delivery Method 12/29/21 13:00 12/29/21 13:00 12/29/21 14:00 Temperature Pulse Rate 75 Pulse Rate [Radial] Respiratory Rate 19 Blood Pressure 134/62 129/62 Blood Pressure [Left Arm] O2 Sat by Pulse Oximetry 100 Oxygen Delivery Method 12/29/21 14:00 12/29/21 16:00 12/29/21 17:41 Temperature 99.7 F H Pulse Rate 76 76 Pulse Rate [Radial] Respiratory Rate 21 20 20 Blood Pressure 138/63 Blood Pressure [Left Arm] O2 Sat by Pulse Oximetry 99 98 Oxygen Delivery Method 12/29/21 20:00 12/29/21 18:41 12/29/21 19:00 Temperature 97.9 F Pulse Rate 80 Pulse Rate [Radial] Respiratory Rate 20 20 Blood Pressure 147/62 Blood Pressure [Left Arm] O2 Sat by Pulse Oximetry 100 Oxygen Delivery Method Room Air 12/30/21 00:00 12/29/21 19:41 12/30/21 03:40 Temperature 97.7 F 97.7 F Pulse Rate 89 66 Pulse Rate [Radial] Respiratory Rate 23 20 23 Blood Pressure 138/67 132/64 Blood Pressure [Left Arm] O2 Sat by Pulse Oximetry 98 99 Oxygen Delivery Method 12/30/21 07:00 12/30/21 08:00 12/30/21 12:00 Temperature 98.4 F 98.4 F Pulse Rate 67 83 Pulse Rate [Radial] Respiratory Rate 18 18 Blood Pressure 146/69 147/65 Blood Pressure [Left Arm] O2 Sat by Pulse Oximetry 99 98 Oxygen Delivery Method Room Air Room Air Room Air 12/30/21 12:19 12/30/21 16:00 12/30/21 16:00 Temperature 99.4 F 97.6 F Pulse Rate 61 62 Pulse Rate [Radial] Respiratory Rate 14 18 18 Blood Pressure 149/70 136/77 Blood Pressure [Left Arm] O2 Sat by Pulse Oximetry 99 99 Oxygen Delivery Method Room Air Room Air 12/30/21 13:45 12/30/21 14:00 12/30/21 14:15 Temperature 97.7 F Pulse Rate Pulse Rate [Radial] 84 82 71 Respiratory Rate 18 16 18 Blood Pressure Blood Pressure [Left Arm] 134/89 131/63 131/79 O2 Sat by Pulse Oximetry 99 97 96 Oxygen Delivery Method 12/30/21 14:30 12/30/21 14:45 12/30/21 15:45 Temperature 97.6 F Pulse Rate Pulse Rate [Radial] 64 66 62 Respiratory Rate 18 18 18 Blood Pressure Blood Pressure [Left Arm] 144/66 145/63 136/77 O2 Sat by Pulse Oximetry 100 100 99 Oxygen Delivery Method 12/30/21 17:27 12/30/21 17:00 12/30/21 18:27 Temperature Pulse Rate Pulse Rate [Radial] Respiratory Rate 18 18 18 Blood Pressure Blood Pressure [Left Arm] O2 Sat by Pulse Oximetry Oxygen Delivery Method 12/30/21 20:00 12/30/21 22:16 12/30/21 19:00 Temperature 97.5 F L Pulse Rate 69 Pulse Rate [Radial] Respiratory Rate 20 20 Blood Pressure 133/59 Blood Pressure [Left Arm] O2 Sat by Pulse Oximetry 100 Oxygen Delivery Method Room Air Room Air 12/30/21 23:16 12/30/21 23:47 12/30/21 23:53 Temperature 98.0 F Pulse Rate 70 Pulse Rate [Radial] Respiratory Rate 20 20 20 Blood Pressure 145/64 Blood Pressure [Left Arm] O2 Sat by Pulse Oximetry 99 Oxygen Delivery Method Room Air 12/31/21 00:53 12/31/21 03:43 12/31/21 06:31 Temperature 97.5 F L Pulse Rate 76 Pulse Rate [Radial] Respiratory Rate 20 20 20 Blood Pressure 141/64 Blood Pressure [Left Arm] O2 Sat by Pulse Oximetry 99 Oxygen Delivery Method Room Air 12/31/21 07:31 12/31/21 09:29 12/31/21 08:00 Temperature 98.2 F Pulse Rate 82 Pulse Rate [Radial] Respiratory Rate 20 20 Blood Pressure 136/64 Blood Pressure [Left Arm] O2 Sat by Pulse Oximetry 94 L Oxygen Delivery Method Room Air Room Air Labs: Laboratory Last Values WBC 6.3 X10^3/uL (3.6-10.0) 12/31/21 04:40 RBC 2.82 X10^6/uL (4.7-6.0) L 12/31/21 04:40 Hgb 8.1 g/dL (13.5-18.0) L 12/31/21 04:40 Hct 24.3 % (42.0-54.0) L 12/31/21 04:40 MCV 86.2 fL (80.0-100.0) 12/31/21 04:40 MCH 28.6 pg (27.0-34.0) 12/31/21 04:40 MCHC 33.2 g/dL (33.0-35.0) 12/31/21 04:40 RDW 17.8 % (11.6-16.5) H 12/31/21 04:40 Plt Count 213 X10^3/uL (150.0-450.0) 12/31/21 04:40 MPV 8.4 fL (7.4-11.0) 12/31/21 04:40 Neut % (Auto) 73.0 % (42.0-75.0) 12/31/21 04:40 Lymph % (Auto) 14.3 % (21.0-51.0) L 12/31/21 04:40 [place] % (Auto) 11.0 % (0.0-13.0) 12/31/21 04:40 Eos % (Auto) 1.2 % (0.9-2.9) 12/31/21 04:40 Baso % (Auto) 0.5 % (0.2-1.0) 12/31/21 04:40 Neut # (Auto) 4.6 x10^3/uL (2.2-4.8) 12/31/21 04:40 Lymph # (Auto) 0.9 X10^3/uL (1.3-2.9) L 12/31/21 04:40 Falls # (Auto) 0.7 x10^3/uL (0.3-0.8) 12/31/21 04:40 Eos # (Auto) 0.1 x10^3/uL (0.0-0.2) 12/31/21 04:40 Baso # (Auto) 0.0 X10^3/uL (0.0-0.1) 12/31/21 04:40 Absolute Nucleated RBC 0.0 /100WBC 12/31/21 04:40 PT 13.0 SECONDS (11.8-14.3) 12/28/21 17:20 INR Target Range - 12/28/21 17:20 INR 1.01 (0.8-1.3) 12/28/21 17:20 APTT 25.1 SECONDS (22.9-36.5) 12/28/21 17:20 PTT Comment - 12/28/21 17:20 Sodium 140 mmol/L (136-145) 12/31/21 04:40 Corrected Sodium TNP 12/31/21 04:40 Potassium 3.4 mmol/L (3.5-5.1) L 12/31/21 04:40 Chloride 109 mmol/L (98-107) H 12/31/21 04:40 Carbon Dioxide 26.5 mmol/L (21-32) 12/31/21 04:40 BUN 12 mg/dL (7-18) 12/31/21 04:40 Creatinine 0.75 mg/dL (0.70-1.30) 12/31/21 04:40 Est GFR (MDRD) Af Amer > 60 (>60) 12/31/21 04:40 Est GFR (MDRD) Non-Af > 60 (>60) 12/31/21 04:40 Glucose 104 mg/dL (65-99) H 12/31/21 04:40 POC Glucose (mg/dL) 118 mg/dL (65-99) H 12/29/21 10:52 Calcium 7.9 mg/dL (8.5-10.1) L 12/31/21 04:40 Corrected Calcium 9.3 mg/dL (8.5-10.1) 12/31/21 04:40 Magnesium 2.0 mg/dL (1.7-2.9) 12/31/21 04:40 Iron 16 ug/dL (50-175) L 12/31/21 04:40 Total Bilirubin 0.80 mg/dL (0.2-1.0) 12/31/21 04:40 AST 27 Units/L (15-37) 12/31/21 04:40 ALT 21 Units/L (12-78) 12/31/21 04:40 Alkaline Phosphatase 73 Units/L (46-116) 12/31/21 04:40 Total Protein 5.1 g/dL (6.4-8.2) L 12/31/21 04:40 Albumin 2.2 g/dL (3.4-5.0) L 12/31/21 04:40 Globulin 2.9 g/dL (2.5-4.5) 12/31/21 04:40 Albumin/Globulin Ratio 0.8 Ratio (1.1-2.1) L 12/31/21 04:40 Specimen Type Catherized urine 12/30/21 12:00 Urine Color Pale yellow (YELLOW) 12/30/21 12:00 Urine Appearance Clear (CLEAR) 12/30/21 12:00 Urine pH 7.0 (5.0 - 8.0) 12/30/21 12:00 Ur Specific [place] 1.010 (1.000-1.030) 12/30/21 12:00 Urine Protein Negative (NEGATIVE) 12/30/21 12:00 Urine Glucose (UA) Negative (NEGATIVE) 12/30/21 12:00 Urine Ketones Negative (NEGATIVE) 12/30/21 12:00 Urine Blood 1+ (NEGATIVE) 12/30/21 12:00 Urine Nitrite Negative (NEGATIVE) 12/30/21 12:00 Urine Bilirubin Negative (NEGATIVE) 12/30/21 12:00 Urine Urobilinogen Normal (NORMAL) 12/30/21 12:00 Ur Leukocyte Esterase Negative (NEGATIVE) 12/30/21 12:00 Urine RBC 3-5 /HPF (0-3) A 12/30/21 12:00 Urine WBC None seen /HPF (0-5) 12/30/21 12:00 Ur Squamous Epith Cells Rare /HPF (NEGATIVE) 12/30/21 12:00 Ur Transition Epith Cell Few /HPF (NEGATIVE) 12/30/21 12:00 Urine Bacteria Trace /HPF (NEGATIVE) 12/30/21 12:00 Ur Culture Indicated? No/not indicated 12/30/21 12:00 Stool Description Solid black 12/28/21 17:25 Stl Occult Blood (IFOB) Positive (NEGATIVE) A 12/28/21 17:25 SARS-CoV-2 (PCR) Negative (NEGATIVE) 12/28/21 18:58 Influenza Type A (PCR) Negative (NEGATIVE) 12/28/21 18:58 Influenza Type B (PCR) Negative (NEGATIVE) 12/28/21 18:58 RSV (PCR) Negative (NEGATIVE) 12/28/21 18:58 Blood Type O POSITIVE 12/28/21 17:20 Antibody Screen Negative 12/28/21 17:20 Crossmatch See Detail 12/28/21 17:20 Reason For Visit: UPPER GI BLEED, ANEMIA Discharge Diagnosis All Active Problems (Updated 12/29/21 @ 09:31 by Davy Peterson) Symptomatic anemia (Acute) PEG tube malfunction (Acute) Bilateral pneumonia (Acute) GIB (gastrointestinal bleeding) (Acute) Constipation (Acute) GI (gastrointestinal bleed) (Acute) Abdominal pain (Acute) Anemia (Acute) Acute upper GI bleeding (Acute) Anemia (Acute) Pain around PEG tube site (Acute) Aspiration pneumonia (Acute) Bronchopneumonia (Acute) Thrombocytopenia (Acute) Anemia, normocytic normochromic (Acute) Gastric ulcer (Chronic) Acute dyspnea (Acute) Thrush, oral (Acute) Dehydration with hypernatremia (Acute) Hypoalbuminemia due to protein-calorie malnutrition (Acute) Nephrolithiasis (Chronic) Dehydration, mild (Acute) Hyperglycemia (Acute) Plan of Treatment: Continue with present treatment and follow up plan. Pt is to keep follow up appointment as instructed and take medications as ordered. Discharge Medications Discharge Medications: alprazolam [From Xanax] Allergy (Verified 11/17/20 08:21) diphenhydramine [From Benadryl] Allergy (Verified 11/17/20 08:21) ketorolac [From Toradol] Allergy (Verified 11/17/20 08:21) lorazepam [From Ativan] Allergy (Verified 11/17/20 08:21) morphine Allergy (Verified 11/17/20 08:21) Penicillins Allergy (Verified 11/17/20 08:21) CONTINUE taking the following medications acetaminophen 325 mg tablet (Tylenol) 650 mg PO QHS 12/28/21 [History] levothyroxine 112 mcg tablet 112 mcg PO QAM 12/28/21 [History] polyethylene glycol 3350 17 gram oral powder packet (Miralax) 17 g PO DAILY PRN 12/28/21 [History] tramadol 50 mg tablet 100 tab PO QHS 12/28/21 [History] New Prescriptions ciprofloxacin HCl 500 mg tablet 500 mg PO BID 5 days #10 tabs 12/31/21 [Rx] ferrous sulfate 300 mg (60 mg iron)/5 mL oral liquid 150 mg (2.5 mL) PO BID #120 mL 12/31/21 [Rx] pantoprazole 40 mg granules delayed-release for susp in packet 40 mg PO DAILY #30 ea 12/31/21 [Rx] sucralfate 100 mg/mL oral suspension 1 g (10 mL) PO ACHS 10 days #100 mL 12/31/21 [Rx] Discharge Disposition Assessment: No acute distress noted at discharge. 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 His hospital/treatment course included: IVF D5% NS@80 ml/h, IV Protonix 40mg, Carafate ACHS, and home medications. For symptomatic anemia patient received one unit packed red blood cells and hemoglobin stabilized. 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 Pt was given iron infusion before discharge and will continue iron supplementation at home. Rx ciprofloxacin x 5 days for possible cystitis while awaiting culture results. He was discharged in stable condition. Instructed to follow up with GI and pcp in 1 week. Patient Disposition: HOME HEALTH SERVICE Condition: Stable Health Concerns: Post Hospitalization: new medications and changes needed to prevent readmission or further decline. Pt educated and given instructions on all concerns. Care Plan Goals: Problem: Fluid Volume Deficit Goal: Maintain/Improved Adequate hydration. Instructions: Follow provided instructions. Follow up with primary physician as directed. Contact primary care physician or report to the closest Emergency Room if condition worsens. Plan of Treatment: Continue with present treatment and follow up plan. Pt is to keep follow up appointment as instructed and take medications as ordered. Assessment: No acute distress noted at discharge. Prescriptions: New sucralfate 100 mg/mL Suspension 1 g PO ACHS 10 Days Qty: 100 0RF ferrous sulfate 300 mg (60 mg iron)/5 mL liquid 150 mg PO BID Qty: 120 1RF ciprofloxacin HCl 500 mg tablet 500 mg PO BID 5 Days Qty: 10 0RF pantoprazole [address] for susp in packet 40 mg PO DAILY Qty: 30 1RF Continued acetaminophen [Tylenol] 325 mg Tablet 650 mg PO QHS Label Comments: takes with midnight feedings tramadol 50 mg tablet 100 tab PO QHS Label Comments: takes with midnight feedings levothyroxine 112 mcg Tablet 112 mcg PO QAM polyethylene glycol 3350 [Miralax] 17 gram Powder In Packet 17 g PO DAILY PRN Follow ups/Referrals Follow ups/Referrals: CARISSA HUNTER [Primary Care Provider] - 01/07/22 8:00 am ROSA HUTCHINS [STAFF PHYSICIAN] - 01/07/22 2:40 pm Instructions Instructions: Iron Sucrose injection, Antibiotic Medicine, Adult, [id number], Anemia, Peptic Ulcer, [id number], Upper Endoscopy, Care After, PEG Tube Home Guide, [id number], Upper Endoscopy, Gastrointestinal Bleeding, [id number], Iron-Rich Diet Stand Alone Forms: Precautions for COVID19, [facility], Patient Portal, Social Distancing Patient Education Addl Reference Links: Anemia [email or web address] [email or web address]=[email or web address].u=a&performer=[email or web address]&informationRecipient =[email or web address]=[email or web address]&mainSea [email or web address].dn=[email or web address]&[email or web address]
[2021-12-31 13:19] VITALS: BP 120/73
== END 2021-12-31 12:50 | disposition home health service (06) | DRG 811 ==
LOC: ER 16:52 → U 19:02 → ICU 12-29 00:47 → MED/SURG 12-29 15:25
PROVIDERS: ADMIT Family Medicine; ATTEND Family Medicine
DX: Z87.11 Personal history of peptic ulcer disease; D62 Acute posthemorrhagic anemia; R39.198 Other difficulties with micturition; F41.8 Other specified anxiety disorders; Z85.21 Personal history of malignant neoplasm of larynx; K31.811 Angiodysplasia of stomach and duodenum with bleeding; Z20.822 Contact with and (suspected) exposure to COVID-19; E03.8 Other specified hypothyroidism; K29.00 Acute gastritis without bleeding; Z93.1 Gastrostomy status; R26.89 Other abnormalities of gait and mobility; I10 Essential (primary) hypertension; D50.8 Other iron deficiency anemias; K21.00 Gastro-esophageal reflux disease with esophagitis, without bleeding; K59.09 Other constipation